=== PATIENT | female | born 1960 | race Asian ===

== ENCOUNTER 2022-01-28 06:35 | Emergency (ER) | payer OTHER ==
--- OUTSIDE RECORDS SUMMARY | 2022-01-28 06:39 | XMS REPORT | Continuity of Care Document ---
:1960 Author Organization [facility] t Address [address] [place] [address] Dr. Arri[address]. [address] [place] [address] Care Team Providers Name Role Phone Koffi Santos Primary Care Physician [phone] MAYNOR Attending Clinician Unavailable Kevin LIMON Attending Clinician Unavailable Maria Ines Chavez MD Attending Clinician Eduardo FARLEY Attending Clinician LUKAS_DARIUSZ_Lotze_P Attending Clinician Unavailable G125, Vaccine - Pfizer Attending Clinician Unavailable Jt Sharma Attending Clinician [phone] Ricarda Hastings MD Attending Clinician Doctor Unassigned, Name Attending Clinician Unavailable [facility] Attending Clinician Pob, Lab Main Attending Clinician Unavailable Kevin LIMON Admitting Clinician Unavailable LUKAS_DARIUSZ_Zachary_P Admitting Clinician Unavailable Payers Payer Name Policy Type Policy Number Effective Date Expiration Date S alan MEDICARE PART A AND [id number] 2014 B 00:00:00 [employer] MEDICARE PPO [id number] 2019 2021 00:00:00 00:00:00 [employer] MEDICARE HMO [id number] 2019 POS 00:00:00 [employer] (MEDICARE [id number] 2019 REPLACEMENT PPO) 00:00:00 Problems Condition Condition Condition Status Onset Resolution Last Treating Co mments Source Name Details Category Date Date Treatment Clinician Date Fatigue Fatigue Disease Active Univers 1-25 ity of 00:00: [place] [facility] Polyuria Polyuria Disease Active Unive rs 7- ity of 00:00: [place] [facility] Salivary Salivary Disease Active Unive rs calculus calculus 7- ity of 00:00: [place] [facility] Prediabete Prediabete Disease Active U nivers s s 7-29 ity of 00:00: [place] [facility] Sacroiliac Sacroiliac Disease Active U nivers joint joint 6-05 ity of dysfunctio dysfunctio 00:[place] TMJ TMJ Disease Active Univers hypermobil hypermobil 4-17 it y of ity ity 00:00: [place] [facility] TMJ TMJ Disease Active Univers crepitus crepitus 4-17 ity of 00:00: [place] [facility] TMJ TMJ Disease Active Univers derangemen derangemen 4-17 it y of t t 00:00: [place] 00 Medical [facility] Lumbosacra Lumbosacra Disease Active U nivers l l 8-28 ity of spondylosi spondylosi 00:[place] without s without 00 Medi ang myelopathy myelopathy Br anch Sinusitis, Sinusitis, Disease Active Overview : Univers chronic chronic 4-26 Formattin ity o f 00:00: g of this 00 note Medical might be Branch different from the original. ICD10 Diagnosis Term Senior Business Intelligence Analyst Utility Hypothyroi Hypothyroi Disease Active U nivers dism dism 1-30 ity of 00:00: [place] 00 Medical Branch Piriformis Piriformis Disease Active U nivers syndrome syndrome ity of [place] [facility] Allergies, Adverse Reactions, Alerts Allergy Allergy Status Severity Reaction(s) Onset Inactive Treating Comm ents Source Name Type Date Date Clinician NO KNOWN Allergy Active Social History Social Habit Start Date Stop Date Quantity Comments Source History SDOH University o f Alcohol Frequency [place] [facility] History SDOH University o f Alcohol Std Drinks [place] [facility] History SDOH University o f Alcohol Binge [place] [facility] Alcohol intake 2021-12-16 2021-12-16 Ex-drinker [facility] [place] [facility] 00:00:00 00:00:00 (finding) Cigarettes smoked 2011-04-23 2011-04-23 Univers ity of current (pack per 00:00:00 00:00:00 [facility] ) - Reported Branch Cigarette 2011-04-23 2011-04-23 University of pack-years 00:00:00 00:00:00 [facility] Tobacco use and 2011-04-23 2011-04-23 Former user Universi ty of exposure 00:00:00 00:00:00 [facility] Alcohol Comment 2011-04-23 2011-04-23 socially, 1x Univers ity of 00:00:00 00:00:00 month [facility] [place] [facility] History of tobacco 2010-11-23 User of Univer sity of use 00:00:00 smokeless [facility] tobacco [place] Sex Ass[birth year] At [birth year] [facility] 00:00:00 00:00:00 Smoking Status Start Date Stop Date Source Tobacco smoking [facility] consumption unknown Never smoked tobacco [facility] Former smoker 2011-04-23 00:00:00 2011-04-23 [place] o f [place] 00:00:00 [facility] Medications Ordered Filled Start Stop Current Ordering Indication Dosage Frequency Signature Comments Components Source Medication Medication Date Date Medication? Clinician (SIG) Name Name NORDITROPIN Yes [id number] INJECT Univers FLEXPRO 5 3-09 0.6MG INTO ity of mg/1.5 mL 00:00: [place] (3.3 mg/mL) 00 DAILY Medical solution Branch NORDITROPIN Yes [id number] INJECT Univers FLEXPRO 5 3-09 0.6MG INTO ity of mg/1.5 mL 00:00: [place] (3.3 mg/mL) 00 DAILY Medical solution Branch NORDITROPIN Yes [id number] INJECT Univers FLEXPRO 5 3-09 0.6MG INTO ity of mg/1.5 mL 00:00: [place] (3.3 mg/mL) 00 DAILY Medical solution Branch pantoprazol 202- Yes [id number] 40mg Take 1 [place] e 11-21 tablet (40 Health (Protonix) 00:00: 05:59 mg total) 40 MG EC 00 :00 by mouth 1 tablet (one) time each day before breakfast. Do not crush, chew, or split. levothyroxi 2021-0 Yes [id number] 112ug Take 1 Univers ne 1-20 tablet by ity of (SYNTHROID) 00:00: mouth [place] 112 mcg 00 every Medical tablet morning. Branch levothyroxi 2021-0 Yes [id number] 112ug Take 1 Univers ne 1-20 tablet by ity of (SYNTHROID) 00:00: mouth [place] 112 mcg 00 every Medical tablet morning. Branch levothyroxi 2021-0 Yes [id number] 112ug Take 1 Univers ne 1-20 tablet by ity of (SYNTHROID) 00:00: mouth [place] 112 mcg 00 every Medical tablet morning. Branch liothyronin 2020-1 Yes [id number] TAKE 2 Univers e 5 mcg 1-08 TABLETS BY ity of tablet 00:00: MOUTH AT [place] 00 9AM, 2 Medical TABLETS AT [place] 12PM, AND 1 TABLET IN THE EVENING liothyronin 2020-1 Yes [id number] TAKE 2 Univers e 5 mcg 1-08 TABLETS BY ity of tablet 00:00: MOUTH AT [place] 00 9AM, 2 Medical TABLETS AT [place] 12PM, AND 1 TABLET IN THE EVENING liothyronin 2020-1 Yes [id number] TAKE 2 Univers e 5 mcg 1-08 TABLETS BY ity of tablet 00:00: MOUTH AT [place] 00 9AM, 2 Medical TABLETS AT [place] 12PM, AND 1 TABLET IN THE EVENING Cholecalcif 2020-0 Yes [id number] Take 1 Univers sammy, 9-10 capsule by ity of Vitamin D3, 00:00: mouth [place] (D3-50 00 weekly. Medical CHOLECALCIF Branch SAMMY) 1,250 mcg (50,000 unit) capsule Cholecalcif 2021-0 Yes [id number] Take 1 Univers sammy, 9-10 capsule by ity of Vitamin D3, 00:00: mouth [place] (D3-50 00 weekly. Medical CHOLECALCIF Branch SAMMY) 1,250 mcg (50,000 unit) capsule Cholecalcif 2021-0 Yes [id number] Take 1 Univers sammy, 9-10 capsule by ity of Vitamin D3, 00:00: mouth [place] (D3-50 00 weekly. Medical CHOLECALCIF Branch SAMMY) 1,250 mcg (50,000 unit) capsule Insulin 2018-10 Yes Use as Univers Hines, 2-11 directed ity of Disposable, 00:00: to inject [place] (NOVOFINE 00 Norditropi Medi ang 32) 32 n daily. Branch gauge x Dx E 23.0 10/29" Ndle Insulin 2018-10 Yes Use as Univers Hines, 2-11 directed ity of Disposable, 00:00: to inject [place] (NOVOFINE 00 Norditropi Medi ang 32) 32 n daily. Branch gauge x Dx E 23.0 10/29" Ndle Insulin 2018-10 Yes Use as Univers Hines, 2-11 directed ity of Disposable, 00:00: to inject [place] (NOVOFINE 00 Norditropi Medi ang 32) 32 n daily. Branch gauge x Dx E 23.0 10/29" Ndle liraglutide Yes [id number] 3mg inject 3 Univers (SAXENDA) 3 7-31 mg under ity of mg/0.5 mL 00:00: the [place] (18 mg/3 00 daily. Medical mL) PnIj Start with Branc h 0.6 mg daily and increase by 0.6 mg every week till you reach 3 mg daily liraglutide Yes [id number] 3mg inject 3 Univers (SAXENDA) 3 7-31 mg under ity of mg/0.5 mL 00:00: the [place] (18 mg/3 00 daily. Medical mL) PnIj Start with Branc h 0.6 mg daily and increase by 0.6 mg every week till you reach 3 mg daily liraglutide Yes [id number] 3mg inject 3 Univers (SAXENDA) 3 7-31 mg under ity of mg/0.5 mL 00:00: the [place] (18 mg/3 00 daily. Medical mL) PnIj Start with Branc h 0.6 mg daily and increase by 0.6 mg every week till you reach 3 mg daily estradiol Yes 1{patch Apply 1 Un jeanette (VIVELLE-DO 7-14 } Patch to ity of T) 0.075 00:00: skin 2 [place] mg/24 hr 00 (two) Medical patch times per Branch week (hot flashes). estradiol Yes 1{patch Apply 1 Un jeanette (VIVELLE-DO 7-14 } Patch to ity of T) 0.075 00:00: skin 2 [place] mg/24 hr 00 (two) Medical patch times per Branch week (hot flashes). estradiol 2016- Yes 1{patch Apply 1 Un jeanette (VIVELLE-DO 7-14 } Patch to ity of T) 0.075 00:00: skin 2 [place] mg/24 hr 00 (two) Medical patch times per Branch week (hot flashes). Olopatadine 2013-10 Yes 2{spray Use 2 Un jeanette (PATANASE) 2-16 } Sprays in ity of 0.6 % [place] 00:00: each [place] 00 nostril Medical daily. Branch Olopatadine 2013-10 Yes 2{spray Use 2 Un jeanette (PATANASE) 2-16 } Sprays in ity of 0.6 % [place] 00:00: each [place] 00 nostril Medical daily. Branch Olopatadine 2013-10 Yes 2{spray Use 2 Un jeanette (PATANASE) 2-16 } Sprays in ity of 0.6 % [place] 00:00: each [place] 00 nostril Medical daily. Branch triamcinolo 2013-10 Yes Apply to U nivers ne 1-19 area(s) 2 ity of (KENALOG) 00:00: (two) [place] 0.025 % 00 times Medical cream daily. Branch triamcinolo 2013-10 Yes Apply to U nivers ne 1-19 area(s) 2 ity of (KENALOG) 00:00: (two) [place] 0.025 % 00 times Medical cream daily. Branch triamcinolo 2013-10 Yes Apply to U nivers ne 1-19 area(s) 2 ity of (KENALOG) 00:00: (two) [place] 0.025 % 00 times Medical cream daily. Branch mometasone 2013-10 Yes 1{spray Use 1 Uni vers (NASONEX) 1-04 } [place] in ity of 50 00:00: each [place] mcg/actuati 00 nostril 2 Med ical on nasal (two) Branch spray times daily. albuterol 2013-10 Yes 2{puff} Inhale 2 U nivers (PROAIR 1-04 Puffs ity of HFA) 90 00:00: every 6 [place] mcg/actuati 00 (six) Medical on inhaler hours as Branc h needed for Wheezing, Shortness of Breath or Chest tightness. mometasone 2013-10 Yes 1{spray Use 1 Uni vers (NASONEX) 1-04 } [place] in ity of 50 00:00: each [place] mcg/actuati 00 nostril 2 Med ical on nasal (two) Branch spray times daily. albuterol 2013-10 Yes 2{puff} Inhale 2 U nivers (PROAIR 1-04 Puffs ity of HFA) 90 00:00: every 6 [place] mcg/actuati 00 (six) Medical on inhaler hours as Branc h needed for Wheezing, Shortness of Breath or Chest tightness. mometasone 2013-10 Yes 1{spray Use 1 Uni vers (NASONEX) 1-04 } [place] in ity of 50 00:00: each [place] mcg/actuati 00 nostril 2 Med ical on nasal (two) Branch spray times daily. albuterol 2013-10 Yes 2{puff} Inhale 2 U nivers (PROAIR 1-04 Puffs ity of HFA) 90 00:00: every 6 [place] mcg/actuati 00 (six) Medical on inhaler hours as Branc h needed for Wheezing, Shortness of Breath or Chest tightness. fluconazole 2013-10 Yes [id number] Take one Univers (DIFLUCAN) 0-29 tab po ity of 150 mg 00:00: today then [place] tablet 00 repeat in Medical 3 days. Branch fluconazole 2013-10 Yes [id number] Take one Univers (DIFLUCAN) 0-29 tab po ity of 150 mg 00:00: today then [place] tablet 00 repeat in Medical 3 days. Branch fluconazole 2013-10 Yes [id number] Take one Univers (DIFLUCAN) 0-29 tab po ity of 150 mg 00:00: today then [place] tablet 00 repeat in Medical 3 days. Branch Immunizations Ordered Filled Immunization Date Status Comments [facility] e Immunization Name Name Influenza, 2021-10-22 Completed [place] [facility] quadrivalent, 00:00:00 injectable, preservative free COVID-19 Pfizer 12 2021-10-22 Completed [place] [facility] & [facility] Vaccination 00:00:00 Influenza, 2021-10-22 Completed [place] [facility] quadrivalent, 00:00:00 injectable, preservative free COVID-19 Pfizer 12 2021-10-22 [place] Vaccination 00:00:00 Influenza Virus 2014-08-23 Completed Universit y of Vaccine Quad IM 3+ 00:00:00 [facility] Influenza Virus 2014-08-23 Completed Universit y of Vaccine Quad IM 3+ 00:00:00 [facility] Influenza Virus 2014-08-23 Completed Universit y of Vaccine Quad IM 3+ 00:00:00 [facility] Vital Signs Vital Name Observation Time Observation Value Comments Source WEIGHT 2021-06-22 20:00:00 58.06 kg HEIGHT 2021-06-21 14:28:00 154.9 cm WEIGHT 2021-06-21 14:28:00 57.5 kg Systolic blood pressure 2021-11-21 17:01:00 136 mm[Hg] [facility] Diastolic blood pressure 2021-11-21 17:01:00 84 mm[Hg] [facility] Heart rate 2021-11-21 17:01:00 87 /min [facility] Body temperature 2021-11-21 17:01:00 37 [facility] ealt Body height 2021-11-21 17:01:00 149.9 cm [facility] Body weight 2021-11-21 17:01:00 [facility] BMI 2021-11-21 17:01:00 25.52 kg/m2 [facility] WEIGHT 2021-06-22 20:00:00 58.06 kg HEIGHT 2021-06-21 14:28:00 154.9 cm WEIGHT 2021-06-21 14:28:00 57.5 kg Procedures This patient has no known procedures. Encounters Start End Encounter Admission Attending Care Care Encounter Source Date/Time Date/Time Type Type Clinicians Facility Department ID 2021-11-21 [id number] [place] 11:49:37 [facility] 2021-10-21 Outpatient [facility] [id number] [place] 22:16:26 Health 2021-10-14 [facility] [id number] [place] 16:35:48 [facility] 2021-08-04 [facility] [id number] [facility] 10:20:24 CHRISTOPHER 2022-01-21 2022-01-21 Telephone [facility] [id number] Univers 00:00:00 00:00:00 Lissy PRIMARY 350.1.13.10 it y of Maria Ines CARE 4.2.7.2.686 [place] [id number] Nd dical 220 Branch 2022-01-17 2022-01-17 Telephone [facility] [id number] Univers 00:00:00 00:00:00 Nate PRIMARY [id number] it y of CARE [id number] [place] [id number] Nd dical 220 Branch 2022-01-15 2022-01-15 Outpatient [facility] PRIV PRIV [id number] [facility] 02:55:00 02:55:00 _Lotze_P [id number] Medic al 2022-01-09 2022-01-09 [facility]phone [facility] [id number] Univers 00:00:00 00:00:00 Lissy PRIMARY 350.1.13.10 it y of Maria Ines CARE 4.2.7.2.686 [place] [id number] Nd dical 220 Branch 2021-12-18 2021-12-18 Outpatient [facility] PRIV PRIV [id number] [facility] 04:21:00 04:21:00 _Lotze_P [id number] Medic al 2021-11-21 2021-11-21 Office KALLI Smith [facility] [id number] [place] 10:00:00 11:49:53 Visit [facility] 350.1.13.58 [place] [address] 2 9.2.7.2.686 [id number] 2021-11-21 2021-11-21 Outpatient [facility] PRIV PRIV [id number] [facility] 06:16:00 06:16:00 _Lotze_P [id number] Medic al 2021-11-04 2021-11-04 Outpatient [facility] PR[facility] PRIV [id number] [facility] 05:32:00 05:32:00 _Lotze_P [id number] Medic al 2021-10-29 2021-10-29 Outpatient [facility] PRIV PRIV [id number] [facility] 04:24:00 04:24:00 _Lotze_P [id number] Medic al 2021-10-23 2021-10-23 Outpatient [facility] PRIV PRIV [id number] [facility] 02:06:00 02:06:00 _Lotze_P [id number] Medic al 2021-10-22 2021-10-22 Immunizati G125, Covid UTP 6414 1.2.840.11 [id number] [place] 13:30:00 13:40:00 on Vaccine - [address] 350.1.13.58 Health Pfizer 9.2.7.2.686 [id number] 3 2021-10-16 2021-10-16 Outpatient [facility] PR[facility] PRIV [id number] 03:48:00 03:48:00 _Lotze_P [id number] Medic al 2021-10-16 2021-10-16 Outpatient Lotze, PRIV PRIV [id number] c-7 00:00:00 00:00:00 Malcolm [id number] Jt [id number] [id number] 2021-10-09 2021-10-09 Outpatient [facility] PRIV PRIV [id number] [facility] 05:30:00 05:30:00 _Lotze_P [id number] Medic al 2021-10-07 2021-10-07 Outpatient [facility] PRIV PRIV [id number] [facility] 04:49:00 04:49:00 _Lotze_P [id number] Medic al 2021-10-07 2021-10-07 Outpatient Lotze, PRIV PRIV [id number] [id number] 00:00:00 00:00:00 Malcolm [id number] Jt [id number] 2021-10-03 2021-10-03 Outpatient [facility] PRIV PRIV [id number] [facility] 03:07:00 03:07:00 _Lotze_P [id number] Medic al 2020-11-16 2020-11-16 [facility] [id number] 15:00:00 23:59:00 Encounter Leonard J [place] 350.1.13.10 [place] 4.2.7.2.686 [place] [id number] 2020-11-16 2020-11-16 Orders Doctor KATHY 1.2.840.114 [id number] 00:00:00 00:00:00 Only Unassigned, JON 350.1.13.10 [place] [facility] 4.2.7.2.686 [id number] 2020-11-07 2020-11-07 Telephone [facility] [id number] 00:00:00 00:00:00 Leonard J PRIMARY 350.1.13.10 CARE 4.2.7.2.686 PAVILLION [id number] 2020-11-02 2020-11-02 Patient [facility] 1.2.840.114 [id number] 00:00:00 00:00:00 Secure Msg [facility] PRIMARY 350.1.13.10 [facility] 4.2.7.2.686 PAVILLION [id number] 220 2020-08-08 2020-08-08 Telemedici [facility] 1.2.840.114 [id number] 09:49:18 16:39:55 ne Visit Leonard J PRIMARY 350.1.13.10 CARE 4.2.7.2.686 PAVILLION [id number] 2020-02-14 2020-02-14 Patient Doctor [facility] 1.2.840.114 [id number] 00:00:00 00:00:00 Secure Msg Unassigned, MULTISPEC 350.1.13.10 [place] IAFLAVIA 4.2.7.2.686 [place] [id number] [place] [facility] 2020-02-11 2020-02-11 Refill Ashley [facility] 1.2.840.114 [id number] 00:00:00 00:00:00 Souad MULTISPEC 350.1.13.10 IAL[place] 4.2.7.2.686 [place] [id number] [facility] [place] [facility] 2020-02-07 2020-02-07 Chief Service Observer Sissy Araceli [facility] 1.2.840.114 [id number] 11:02:28 12:15:54 Visit Lab Main [place] 350.1.13.10 [place] 4.2.7.2.686 [place] [id number] 2020-02-07 2020-02-07 Refill Ashley [facility] 1.2.840.114 [id number] 00:00:00 00:00:00 Souad MULTISPEC 350.1.13.10 [place] 4.2.7.2.686 [place] [id number] [place] [facility] 2019-07-29 2019-07-29 Outpatient MHIE MHIE [id number] [facility] 11:30:00 11:30:00 07 pineda Romero 2019-06-06 2019-06-06 Outpatient MHIE MHIE [id number] [facility] 16:45:00 16:45:00 08 pineda Romero 2019-05-04 2019-05-04 Outpatient MHIE MHIE [id number] [facility] 11:15:00 11:15:00 06 pineda Romero 2019-02-03 2019-02-03 Outpatient MHIE MHIE [id number] [facility] 14:00:00 14:00:00 05 pineda Romero 2018-09-22 2018-09-22 Outpatient MHIE MHIE [id number] [facility] 15:00:00 15:00:00 04 pineda Romero 2018-08-04 2018-08-04 Outpatient MHIE MHIE [id number] [facility] 10:30:00 10:30:00 03 pineda Romero 2018-07-29 2018-07-29 Outpatient MHIE MHIE [id number] [facility] 14:45:00 14:45:00 02 pineda Romero 2018-06-17 2018-06-17 Outpatient MHIE MHIE [id number] [facility] 15:15:00 15:15:00 01 pineda Romero 2018-05-04 2018-05-04 Outpatient MHIE MHIE [id number] [facility] 13:30:00 13:30:00 00 pineda Romero Results Test Description Test Time Test Comments Results Result Sourc e Comments TISSUE EXAM 2021-06-26 Surgical Pathology Report 11:39:00 Case: [id number] Authorizing Provider: Khai Blum MD Collected: 06/23/2021 08:28 AM Ordering Location: [address] Med/Surg Received: 06/24/2021 10:12 AM Pathologist: Ce Iniguez MD Specimens: A) - Small Bowel, NOS B) - Biopsy, Gastric, remnant gastric biopsy This addendum is to report Warthin Starry results. WARTHIN STARRY: NEGATIVE FOR H. PYLORI ORGANISMS Addendum electronically signed by Ce Iniguez MD on 06/26/2021 at 11:39 AMA. SMALL BOWEL, BIOPSY: - SMALL INTESTINAL MUCOSA WITH NO SIGNIFICANT PATHOLOGIC ALTERATIONB. GASTRIC REMNANT, BIOPSY: - OXYNTIC TYPE MUCOSA WITH MILD CHRONIC INACTIVE GASTRITIS - NO INTESTINAL METAPLASIA, DYSPLASIA OR MALIGNANCY SEEN - WARTHIN STARRY STAIN FOR H. PYLORI IS PENDING, ADDENDUM REPORT TO FOLLOW Signing Pathologist Direct Phone Line: [phone] y signed by Ce Iniguez MD on 06/25/2021 at 11:15 AMMG/[id number] A. Small bowel NOS. B. Biopsy gastric remnant Specimen A received in fixative labeled with the patient's name and medical record number and designated as "small bowel NOS", consists of two white-newby tissue fragments ranging in size from 0.2 to 0.5 cm in greatest dimension. Both tissue fragments are submitted into A1.Specimen B received in fixative labeled with the patient's name and medical record number and designated as "biopsy gastric", consists of two pink-newby tissue fragments each measuring 0.3 cm in greatest dimension. Both tissue fragments are submitted into B1. MG/Nate-B. Performed The interpretation of this case included the use of immunohistochemistry or special stains.B. Warthin StarryControl Slides Examined: In-house known positive controls were evaluated along with the test tissue. These control slides run alongside of the patients sample show appropriate staining. Internal positive and negative controls when available are evaluated Immunohistochemistry technical testing was performed at [facility], Pathology Laboratory where it was developed and its performance characteristics were determined. It has not been cleared or approved by the U.S. Food and Drug Administration. The FDA has determined that such clearance or approval is not necessary. The test is used for clinical purposes. It should not be regarded as investigational or for research. This laboratory is certified under the Clinical Laboratory Improvement Amendments of 1988 (CLIA-88) as qualified to perform high complexity clinical laboratory testing.[facility], Department of Pathology, [address] [place] [id number], Lzyroj [facility], Department of Pathology, [address] [place] [id number], [facility], Department of Pathology, [address] [place] [address] [id number], HEMORRHAGE 2021-06-25 Unlisted IMAGING, RBC 09:55:00 Reason for Exam - Click [facility] - Yes and Enter [facility] CENTERName: Reason DELBERT LAW Below->No : 1960 Sex: F FINAL REPORT PROCEDURE: HEMORRHAGE STUDY with RBCs CPT CODE: 11163 INDICATION: Gastrointestinal Bleeding PROTOCOL: 28.0 mCi of Tc-99m was injected intravenously as labeled autologous red blood cells. Flow images of the abdomen were obtained, followed by serial images for approximately 60 minutes. Additional images were obtained 18 hours after tracer injection. FINDINGS: There is physiological tracer distribution in the blood pool. IMPRESSION: Negative study. No evidence of active hemorrhage is seen. Signed: Homer Grubbs MDReport Verified Date/Time: 06/25/2021 09:55:14 Reading Location: [address] [place] [address] Reading Room C METABOLIC PANEL 2021-06-25 06:19:00 Test Item Value Reference Range Interpretation Comme nts SODIUM (BEAKER) (test code 139 meq/L 135-148 = 381) POTASSIUM (BEAKER) (test 3.4 meq/L 3.6-5.5 L code = 379) CHLORIDE (BEAKER) (test 107 meq/L 98-106 H code = 382) CO2 (BEAKER) (test code = 23 meq/L 20-29 355) BLOOD UREA NITROGEN 11 mg/dL 10-26 (BEAKER) (test code = 354) CREATININE (BEAKER) (test 0.63 mg/dL 0.50-1.20 code = 358) GLUCOSE RANDOM (BEAKER) 111 mg/dL 70-110 H (test code = 652) CALCIUM (BEAKER) (test code 8.8 mg/dL 8.5-10.5 = 697) EGFR (BEAKER) (test code = 96 mL/min/1.73 sq m ESTIMATED GFR IS NOT 1092) ACCURATE CRE ATININE CLEARANCE IN MI EDICTING GLOMERULAR FILT RATION RATE. ESTIMATED GFR IS NOT APPLICABLE FOR DIALYSIS PATIENTS. Casting House Laborer ID - LITOOperator ID - LITOOperator ID - LITOOperator ID - LITOOperator ID - LITOOperator ID - LITOOperator ID - LITOOperator ID - LITOOperator ID - LITOOperator ID - [id number] 06:08:00 Test Item Value Reference Range Interpretation Comments MAGNESIUM (BEAKER) (test code = 1.9 mg/dL 1.5-3.0 627) Casting House Laborer ID - LITOOperator ID - LITOOperator ID - LITOOperator ID - LITOCBC W/PLT COUNT & AUTO [id number] 05:43:00 Test Item Value Reference Range Interpretation Comments WHITE BLOOD CELL COUNT (BEAKER) 9.1 K/ L 4.0-10.0 (test code = 775) RED BLOOD CELL COUNT (BEAKER) 2.97 M/ L 4.00-5.00 L (test code = 761) HEMOGLOBIN (BEAKER) (test code = 8.3 GM/DL 12.0-15.5 L 410) HEMATOCRIT (BEAKER) (test code = 26.2 % 36.0-46.0 L 411) MEAN CORPUSCULAR VOLUME (BEAKER) 88.2 fL 82.0-99.0 (test code = 753) MEAN CORPUSCULAR HEMOGLOBIN 27.9 pg 27.0-33.0 (BEAKER) (test code = 751) MEAN CORPUSCULAR HEMOGLOBIN CONC 31.7 GM/DL 32.0-36.0 L (BEAKER) (test code = 752) RED CELL DISTRIBUTION WIDTH 15.8 % 12.0-15.0 H (BEAKER) (test code = 412) PLATELET COUNT (BEAKER) (test 455 K/CU MM 150-430 H code = 756) MEAN PLATELET VOLUME (BEAKER) 9.3 fL 6.0-11.5 (test code = 754) NUCLEATED RED BLOOD CELLS 0 /100 WBC 0-0 (BEAKER) (test code = 413) NEUTROPHILS RELATIVE PERCENT 65 % (BEAKER) (test code = 429) LYMPHOCYTES RELATIVE PERCENT 28 % (BEAKER) (test code = 430) MONOCYTES RELATIVE PERCENT 4 % (BEAKER) (test code = 431) EOSINOPHILS RELATIVE PERCENT 2 % (BEAKER) (test code = 432) BASOPHILS RELATIVE PERCENT 0 % (BEAKER) (test code = 437) NEUTROPHILS ABSOLUTE COUNT 5.84 K/ L 1.80-8.00 (BEAKER) (test code = 670) LYMPHOCYTES ABSOLUTE COUNT 2.57 K/ L 1.48-4.50 (BEAKER) (test code = 414) MONOCYTES ABSOLUTE COUNT (BEAKER) 0.40 K/ L 0.00-1.30 (test code = 415) EOSINOPHILS ABSOLUTE COUNT 0.20 K/ L 0.00-0.50 (BEAKER) (test code = 416) BASOPHILS ABSOLUTE COUNT (BEAKER) 0.01 K/ L 0.00-0.20 (test code = 417) IMMATURE GRANULOCYTES-RELATIVE 0 % 0-0 PERCENT (BEAKER) (test code = 2801) [id number] 05:20:00 Test Item Value Reference Range Interpretation Comments MAGNESIUM (BEAKER) (test code = 1.9 mg/dL 1.5-3.0 627) [employer] ID - [id number] ID - [id number] ID - [id number] ID - [id number] BASIC METABOLIC [id number] 05:19:00 Test Item Value Reference Range Interpretation Comments SODIUM (BEAKER) 141 meq/L 135-148 (test code = 381) POTASSIUM (BEAKER) 3.6 meq/L 3.6-5.5 (test code = 379) CHLORIDE (BEAKER) 110 meq/L 98-106 H (test code = 382) CO2 (BEAKER) (test 22 meq/L 20-29 code = 355) BLOOD UREA NITROGEN 9 mg/dL 10-26 L (BEAKER) (test code = 354) CREATININE (BEAKER) 0.68 mg/dL 0.50-1.20 (test code = 358) GLUCOSE RANDOM 137 mg/dL 70-110 H (BEAKER) (test code = 652) CALCIUM (BEAKER) 8.7 mg/dL 8.5-10.5 (test code = 697) EGFR (BEAKER) (test 88 mL/min/1.73 ESTIMA CIARRA GFR IS code = 1092) sq m NOT ACCURATE CREATININE CLEARANCE IN PREDICTING GLOMERULAR FILTRATION RATE . ESTIMATED GFR I S NOT APPLICABLE FOR DIALYSIS PATIEN TS. [employer] Laborer ID - [id number] ID - [id number] ID - [id number] ID - [id number] ID - [id number] ID - [id number] ID - [id number] ID - [id number] ID - [id number] W/PLT COUNT & AUTO [id number] 04:59:00 Test Item Value Reference Range Interpretation Comments WHITE BLOOD CELL COUNT (BEAKER) 9.2 K/ L 4.0-10.0 (test code = 775) RED BLOOD CELL COUNT (BEAKER) 2.69 M/ L 4.00-5.00 L (test code = 761) HEMOGLOBIN (BEAKER) (test code = 7.8 GM/DL 12.0-15.5 L 410) HEMATOCRIT (BEAKER) (test code = 23.7 % 36.0-46.0 L 411) MEAN CORPUSCULAR VOLUME (BEAKER) 88.1 fL 82.0-99.0 (test code = 753) MEAN CORPUSCULAR HEMOGLOBIN 29.0 pg 27.0-33.0 (BEAKER) (test code = 751) MEAN CORPUSCULAR HEMOGLOBIN CONC 32.9 GM/DL 32.0-36.0 (BEAKER) (test code = 752) RED CELL DISTRIBUTION WIDTH 15.9 % 12.0-15.0 H (BEAKER) (test code = 412) PLATELET COUNT (BEAKER) (test 441 K/CU MM 150-430 H code = 756) MEAN PLATELET VOLUME (BEAKER) 9.8 fL 6.0-11.5 (test code = 754) NUCLEATED RED BLOOD CELLS 0 /100 WBC 0-0 (BEAKER) (test code = 413) NEUTROPHILS RELATIVE PERCENT 61 % (BEAKER) (test code = 429) LYMPHOCYTES RELATIVE PERCENT 33 % (BEAKER) (test code = 430) MONOCYTES RELATIVE PERCENT 4 % (BEAKER) (test code = 431) EOSINOPHILS RELATIVE PERCENT 2 % (BEAKER) (test code = 432) BASOPHILS RELATIVE PERCENT 0 % (BEAKER) (test code = 437) NEUTROPHILS ABSOLUTE COUNT 5.60 K/ L 1.80-8.00 (BEAKER) (test code = 670) LYMPHOCYTES ABSOLUTE COUNT 3.04 K/ L 1.48-4.50 (BEAKER) (test code = 414) MONOCYTES ABSOLUTE COUNT (BEAKER) 0.38 K/ L 0.00-1.30 (test code = 415) EOSINOPHILS ABSOLUTE COUNT 0.14 K/ L 0.00-0.50 (BEAKER) (test code = 416) BASOPHILS ABSOLUTE COUNT (BEAKER) 0.01 K/ L 0.00-0.20 (test code = 417) IMMATURE GRANULOCYTES-RELATIVE 0 % 0-0 PERCENT (BEAKER) (test code = 2801) VITAMIN B12 AND [id number] 07:35:00 Test Item Value Reference Range Interpretation Comments VITAMIN B12 1390 pg/mL 211-911 H (BEAKER) (test code = 774) FOLATE (BEAKER) 13.60 ng/mL See_Comment [Automated message] (test code = 362) The system which generated this result transmitted ref erence range: >=5.4. T he reference range was not used to interpr et this result as normal/abnormal . [employer] Laborer ID - [id number] ID - [id number], TIBC, % SAT. (WITHOUT FERRITIN)2021-06-23 07:12:00 Test Item Value Reference Range Interpretation Comments IRON (BEAKER) (test code = 547) 84.0 ug/dL 45.0-170.0 TOTAL IRON BINDING CAPACITY 341 ug/dL 250-550 (BEAKER) (test code = 769) IRON % SATURATION (2) (BEAKER) 25 % 20-55 (test code = 2590) [employer] Laborer ID - [id number] ID - [id number] METABOLIC [id number] 07:12:00 Test Item Value Reference Range Interpretation Comments SODIUM (BEAKER) 143 meq/L 135-148 (test code = 381) POTASSIUM (BEAKER) 3.8 meq/L 3.6-5.5 (test code = 379) CHLORIDE (BEAKER) 115 meq/L 98-106 H (test code = 382) CO2 (BEAKER) (test 20 meq/L 20-29 code = 355) BLOOD UREA NITROGEN 6 mg/dL 10-26 L (BEAKER) (test code = 354) CREATININE (BEAKER) 0.66 mg/dL 0.50-1.20 (test code = 358) GLUCOSE RANDOM 123 mg/dL 70-110 H (BEAKER) (test code = 652) CALCIUM (BEAKER) 9.4 mg/dL 8.5-10.5 (test code = 697) EGFR (BEAKER) (test 91 mL/min/1.73 ESTIMA CIARRA GFR IS code = 1092) sq m NOT ACCURATE CREATININE CLEARANCE IN PREDICTING GLOMERULAR FILTRATION RATE . ESTIMATED GFR I S NOT APPLICABLE FOR DIALYSIS PATIEN TS. [employer] Laborer ID - [id number] ID - [id number] ID - [id number] ID - [id number] ID - [id number] ID - [id number] ID - [id number] ID - [id number] ID - [id number] ID - [id number] 06:45:00 Test Item Value Reference Range Interpretation Comments MAGNESIUM (BEAKER) (test code = 2.0 mg/dL 1.5-3.0 627) [employer] Laborer ID - [id number] ID - [id number] ID - [id number] ID - [id number] C-REACTIVE [id number] 06:42:00 Test Item Value Reference Range Interpretation Comments C-REACTIVE PROTEIN (BEAKER) (test 0.02 mg/dL 0.00-0.50 code = 676) [employer] Laborer ID - [id number] W/PLT COUNT & AUTO [id number] 06:29:00 Test Item Value Reference Range Interpretation Comments WHITE BLOOD CELL COUNT (BEAKER) 11.5 K/ L 4.0-10.0 H (test code = 775) RED BLOOD CELL COUNT (BEAKER) 2.92 M/ L 4.00-5.00 L (test code = 761) HEMOGLOBIN (BEAKER) (test code = 8.3 GM/DL 12.0-15.5 L 410) HEMATOCRIT (BEAKER) (test code = 25.7 % 36.0-46.0 L 411) MEAN CORPUSCULAR VOLUME (BEAKER) 88.0 fL 82.0-99.0 (test code = 753) MEAN CORPUSCULAR HEMOGLOBIN 28.4 pg 27.0-33.0 (BEAKER) (test code = 751) MEAN CORPUSCULAR HEMOGLOBIN CONC 32.3 GM/DL 32.0-36.0 (BEAKER) (test code = 752) RED CELL DISTRIBUTION WIDTH 15.3 % 12.0-15.0 H (BEAKER) (test code = 412) PLATELET COUNT (BEAKER) (test 483 K/CU MM 150-430 H code = 756) MEAN PLATELET VOLUME (BEAKER) 10.0 fL 6.0-11.5 (test code = 754) NUCLEATED RED BLOOD CELLS 0 /100 WBC 0-0 (BEAKER) (test code = 413) NEUTROPHILS RELATIVE PERCENT 77 % (BEAKER) (test code = 429) LYMPHOCYTES RELATIVE PERCENT 17 % (BEAKER) (test code = 430) MONOCYTES RELATIVE PERCENT 6 % (BEAKER) (test code = 431) EOSINOPHILS RELATIVE PERCENT 0 % (BEAKER) (test code = 432) BASOPHILS RELATIVE PERCENT 0 % (BEAKER) (test code = 437) NEUTROPHILS ABSOLUTE COUNT 8.80 K/ L 1.80-8.00 H (BEAKER) (test code = 670) LYMPHOCYTES ABSOLUTE COUNT 1.92 K/ L 1.48-4.50 (BEAKER) (test code = 414) MONOCYTES ABSOLUTE COUNT (BEAKER) 0.70 K/ L 0.00-1.30 (test code = 415) EOSINOPHILS ABSOLUTE COUNT 0.00 K/ L 0.00-0.50 (BEAKER) (test code = 416) BASOPHILS ABSOLUTE COUNT (BEAKER) 0.02 K/ L 0.00-0.20 (test code = 417) IMMATURE GRANULOCYTES-RELATIVE 0 % 0-0 PERCENT (BEAKER) (test code = 2801) HEMOGLOBIN AND [id number] 20:22:00 Test Item Value Reference Range Interpretation Comments HEMOGLOBIN (BEAKER) (test code = 8.6 GM/DL 12.0-15.5 L 410) HEMATOCRIT (BEAKER) (test code = 26.6 % 36.0-46.0 L 411) URINALYSIS W/ REFLEX URINE [id number] 16:52:00 Test Item Value Reference Range Interpretation Comments COLOR (BEAKER) (test code = Yellow 470) CLARITY (BEAKER) (test code = Clear 469) SPECIFIC GRAVITY UA (BEAKER) 1.010 1.001-1.035 (test code = 468) PH UA (BEAKER) (test code = 7.0 5.0-8.0 467) PROTEIN UA (BEAKER) (test code Negative Negative = 464) GLUCOSE UA (BEAKER) (test code Negative Negative = 365) KETONES UA (BEAKER) (test code Negative Negative = 371) BILIRUBIN UA (BEAKER) (test Negative Negative code = 462) BLOOD UA (BEAKER) (test code = Negative Negative 461) NITRITE UA (BEAKER) (test code Negative Negative = 465) LEUKOCYTE ESTERASE UA (BEAKER) Negative Negative (test code = 466) UROBILINOGEN UA (BEAKER) (test 0.2 mg/dL 0.2-1.0 code = 463) BACTERIA (BEAKER) (test code = None Seen 517) RBC UA-MANUAL (BEAKER) (test None Seen /HPF code = 1659) WBC UA-MANUAL (BEAKER) (test None Seen /HPF code = 1661) SQUAMOUS EPITHELIAL MANUAL <5 /HPF (BEAKER) (test code = 1663) SOURCE(BEAKER) (test code = 2795) MR, BRAIN, WITHOUT [id number] 14:05:00Outside CT head unremarkable.Unlisted Reason for Exam - Click Yes and Enter Reason Below->No [facility] : 1960 Sex: FFINAL REPORT MRI Brain without contrast Clinical History: Headache, chronic, with new features Technique: MRI of the brain utilizing axial T2, FLAIR, GRE, DWI; sagittal and coronal T1-weighted images. Comparisons: None Findings: There is no evidence of acute infarct or hemorrhage. There are a few scattered nonspecific foci of FLAIR signal abnormality in the subcortical and periventricular white matter. There are multiseptated cystic appearing lesions in the bilateral lateral ventricles, moderately distending the atria. The ventricles are otherwise normal in size. Thereis no significant reactive edema in the periventricular white matter. There is mild generalized sulcal prominence without midline shift. There are no extra-axial fluid collections. The craniocervical junction is preserved. The major intracranial flow-voids appear patent. 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 If clinically warranted, gadolinium-enhanced imaging could be performed for further evaluation. Otherwise, age concordant appearing noncontrast MRI brain. Signed: Shawn Fuentes MDReport Verified Date/Time: 06/22/2021 14:05:16 Reading Location: [address] Neuro Reading Room REHENSIVE METABOLIC [id number] 09:28:00 Test Item Value Reference Range Interpretation Comments TOTAL PROTEIN 4.9 gm/dL 6.0-8.5 L (BEAKER) (test code = 770) ALBUMIN (BEAKER) 2.8 g/dL 3.5-5.0 L (test code = 1145) ALKALINE PHOSPHATASE 48 U/L 30-115 (BEAKER) (test code = 346) BILIRUBIN TOTAL 0.4 mg/dL 0.1-1.2 (BEAKER) (test code = 377) SODIUM (BEAKER) (test 137 meq/L 135-148 code = 381) POTASSIUM (BEAKER) 3.9 meq/L 3.6-5.5 (test code = 379) CHLORIDE (BEAKER) 113 meq/L 98-106 H (test code = 382) CO2 (BEAKER) (test 19 meq/L 20-29 L code = 355) BLOOD UREA NITROGEN 5 mg/dL 10-26 L (BEAKER) (test code = 354) CREATININE (BEAKER) 0.62 mg/dL 0.50-1.20 (test code = 358) GLUCOSE RANDOM 87 mg/dL 70-110 (BEAKER) (test code = 652) CALCIUM (BEAKER) 8.4 mg/dL 8.5-10.5 L (test code = 697) AST (SGOT) (BEAKER) 21 U/L 5-40 (test code = 353) ALT (SGPT) (BEAKER) 19 U/L 5-50 (test code = 347) EGFR (BEAKER) (test 98 mL/min/1.73 ESTIMA CIARRA GFR IS code = 1092) sq m NOT ACCURATE CREATININE CLEARANCE IN PREDICTING GLOMERULAR FILTRATION RATE . ESTIMATED GFR I S NOT APPLICABLE FOR DIALYSIS PATIEN TS. [employer] Laborer ID - [id number] ID - [id number] ID - [id number] ID - [id number] ID - [id number] ID - [id number] ID - [id number] ID - [id number] ID - [id number] ID - [id number] ID - [id number] ID - [id number] ID - [id number] ID - [id number] ID - [id number] ID - [id number] ID - [id number] ID - [id number] ID - [id number] HEMOGLOBIN AND [id number] 09:10:00 Test Item Value Reference Range Interpretation Comments HEMOGLOBIN (BEAKER) (test code = 7.5 GM/DL 12.0-15.5 L 410) HEMATOCRIT (BEAKER) (test code = 23.1 % 36.0-46.0 L 411) CBC W/PLT COUNT & AUTO [id number] 05:59:00 Test Item Value Reference Range Interpretation Comments WHITE BLOOD CELL COUNT (BEAKER) 5.0 K/ L 4.0-10.0 (test code = 775) RED BLOOD CELL COUNT (BEAKER) 2.58 M/ L 4.00-5.00 L (test code = 761) HEMOGLOBIN (BEAKER) (test code = 7.3 GM/DL 12.0-15.5 L 410) HEMATOCRIT (BEAKER) (test code = 22.7 % 36.0-46.0 L 411) MEAN CORPUSCULAR VOLUME (BEAKER) 88.0 fL 82.0-99.0 (test code = 753) MEAN CORPUSCULAR HEMOGLOBIN 28.3 pg 27.0-33.0 (BEAKER) (test code = 751) MEAN CORPUSCULAR HEMOGLOBIN CONC 32.2 GM/DL 32.0-36.0 (BEAKER) (test code = 752) RED CELL DISTRIBUTION WIDTH 15.0 % 12.0-15.0 (BEAKER) (test code = 412) PLATELET COUNT (BEAKER) (test 421 K/CU MM 150-430 code = 756) MEAN PLATELET VOLUME (BEAKER) 9.9 fL 6.0-11.5 (test code = 754) NUCLEATED RED BLOOD CELLS 0 /100 WBC 0-0 (BEAKER) (test code = 413) NEUTROPHILS RELATIVE PERCENT 43 % (BEAKER) (test code = 429) LYMPHOCYTES RELATIVE PERCENT 44 % (BEAKER) (test code = 430) MONOCYTES RELATIVE PERCENT 9 % (BEAKER) (test code = 431) EOSINOPHILS RELATIVE PERCENT 3 % (BEAKER) (test code = 432) BASOPHILS RELATIVE PERCENT 0 % (BEAKER) (test code = 437) NEUTROPHILS ABSOLUTE COUNT 2.15 K/ L 1.80-8.00 (BEAKER) (test code = 670) LYMPHOCYTES ABSOLUTE COUNT 2.17 K/ L 1.48-4.50 (BEAKER) (test code = 414) MONOCYTES ABSOLUTE COUNT (BEAKER) 0.46 K/ L 0.00-1.30 (test code = 415) EOSINOPHILS ABSOLUTE COUNT 0.17 K/ L 0.00-0.50 (BEAKER) (test code = 416) BASOPHILS ABSOLUTE COUNT (BEAKER) 0.02 K/ L 0.00-0.20 (test code = 417) IMMATURE GRANULOCYTES-RELATIVE 0 % 0-0 PERCENT (BEAKER) (test code = 2801) SARS-COV2/RT-PCR ([facility])2021-06-21 18:53:00 Test Item Value Reference Range Interpretation Comments SARS-COV2/RT-PCR Negative Negative The SARS-Co V-2 target (test code = nucleic acids a re not [id number]) detected in thi s specimen. Negative result s do not preclude SARS-C oV-2 infection and s hould not be used as the david e basis for patient managem ent decisions. Nega tive results must be combine d with clinical observ ations, patient history , and epidemiological information. A false negativ e result may occur if a spec imen is improperly roseanne ected, transported or handled. This SARS CoV-2 test is a rapid, real-sumanth e RT-PCR test intended for th e qualitative detection of nu cleic acid from SARS-CoV-2 in a nasopharyngeal swab specimen collected from individuals suspected of CO VID-19 by their healthcar e provider. This test has been authorized by FDA under an EUA for use by authorized laboratories. This test is only authorized for the duration of the declaration that circumstances exist justifying the authorization of emergency use of in vitro diagnostic tests for detection and/or diagnosis of COVID-19 under Section 564(b)(1) of the Federal Food, Drug and Cosmetic Act, 21 U.S.C. 360bbb- 3(b)(1), unless the authorization is terminated or revoked sooner. Fact Sheet for Healthcare Providers: https://www.[employer]/Documents/Xpert%20Xpress%20SARS%20CoV-2/Fact%20Sheets/565-3120%20SARS-COV -2%20HEALTHCARE%20PROVIDERS%20FACT%20SHEET.pdf Fact Sheet for Healthcare Patients: https://www.[employer]/Documents/Xpert %20Xpress%20SARS%20CoV-2/Fact%20Sheets/740-4942%68GVCS-WXN-4%20PATIENT%20FACT%20 SHEET.pdfCBC W/PLT COUNT & AUTO [id number] 16:35:00 Test Item Value Reference Range Interpretation Comments WHITE BLOOD CELL COUNT (BEAKER) 4.4 K/ L 4.0-10.0 (test code = 775) RED BLOOD CELL COUNT (BEAKER) 2.33 M/ L 4.00-5.00 L (test code = 761) HEMOGLOBIN (BEAKER) (test code = 6.6 GM/DL 12.0-15.5 L 410) HEMATOCRIT (BEAKER) (test code = 21.3 % 36.0-46.0 L 411) MEAN CORPUSCULAR VOLUME (BEAKER) 91.4 fL 82.0-99.0 (test code = 753) MEAN CORPUSCULAR HEMOGLOBIN 28.3 pg 27.0-33.0 (BEAKER) (test code = 751) MEAN CORPUSCULAR HEMOGLOBIN CONC 31.0 GM/DL 32.0-36.0 L (BEAKER) (test code = 752) RED CELL DISTRIBUTION WIDTH 15.2 % 12.0-15.0 H (BEAKER) (test code = 412) PLATELET COUNT (BEAKER) (test 462 K/CU MM 150-430 H code = 756) MEAN PLATELET VOLUME (BEAKER) 9.3 fL 6.0-11.5 (test code = 754) NUCLEATED RED BLOOD CELLS 0 /100 WBC 0-0 (BEAKER) (test code = 413) NEUTROPHILS RELATIVE PERCENT 38 % (BEAKER) (test code = 429) LYMPHOCYTES RELATIVE PERCENT 50 % (BEAKER) (test code = 430) MONOCYTES RELATIVE PERCENT 9 % (BEAKER) (test code = 431) EOSINOPHILS RELATIVE PERCENT 3 % (BEAKER) (test code = 432) BASOPHILS RELATIVE PERCENT 0 % (BEAKER) (test code = 437) NEUTROPHILS ABSOLUTE COUNT 1.67 K/ L 1.80-8.00 L (BEAKER) (test code = 670) LYMPHOCYTES ABSOLUTE COUNT 2.20 K/ L 1.48-4.50 (BEAKER) (test code = 414) MONOCYTES ABSOLUTE COUNT (BEAKER) 0.39 K/ L 0.00-1.30 (test code = 415) EOSINOPHILS ABSOLUTE COUNT 0.13 K/ L 0.00-0.50 (BEAKER) (test code = 416) BASOPHILS ABSOLUTE COUNT (BEAKER) 0.01 K/ L 0.00-0.20 (test code = 417) IMMATURE GRANULOCYTES-RELATIVE 0 % 0-0 PERCENT (BEAKER) (test code = 2801) TROPONIN [id number] 16:09:00 Test Item Value Reference Range Interpretation Comments TROPONIN I (BEAKER) (test code = 397) < ng/mL 0.00-0.15 Troponin I (TnI) levels must be interpreted in the context of the presenting symptoms and the clinical findings. Elevated TnI levels indicate myocardial damage, but are not specific for ischemic heart disease. Elevated TnI levels are seen in patients with other cardiac conditions (including myocarditis and congestive heart failure), and slight TnI elevations occur in patients with other conditions, including sepsis, renal failure, acidosis, acute neurological disease, and persistent tachyarrhythmia.[employer] ID - [id number] TIME/[id number] 16:03:00 Test Item Value Reference Range Interpretation Comments PROTIME (BEAKER) 11.1 seconds 9.3-12.0 Final Infor mation (test code = 759) (Auto Outp ut) INR (BEAKER) (test 1.00 See_Comment Final Inf ormation code = 370) (Auto Output) [Automated mess age] The system pinion-pins generated this result transmitted ref erence range: <=5.90. The reference range was not used to int erpret this result as normal/abnormal . RECOMMENDED COUMADIN/WARFARIN INR THERAPY RANGESSTANDARD DOSE: 2.0 - 3.0 Includes: PROPHYLAXIS forvenous thrombosis, systemic embolization; TREATMENT for venous thrombosis and/or pulmonary embolus.HIGH RISK: Target INR is 2.5-3.5 for patients with mechanical heart valves.[id number] 16:03:00 Test Item Value Reference Range Interpretation Comments PARTIAL THROMBOPLASTIN 26.8 seconds 23.0-35.0 Final Information TIME (BEAKER) (test (Auto Ou tput) code = 760)
--- NOTE | 2022-01-28 08:21 | RAD REPORT ---
EXAM DESCRIPTION: RAD - Ankle Right 3 View - 01/28/2022 8:11 am CLINICAL HISTORY: Right ankle pain FINDINGS: Old fracture distal diaphysis right tibia. No acute fracture or dislocation seen. Moderate osteoarthritis tibiotalar joint
--- NOTE | 2022-01-28 08:45 | RAD REPORT ---
EXAM DESCRIPTION: [place] Single View01/28/2022 8:31 am CLINICAL HISTORY: Syncope COMPARISON: none FINDINGS: The lungs appear clear of acute infiltrate. The heart is normal size. Lezama rods tra verse the lower thoracic/lumbar spine IMPRESSION: No acute abnormalities displayed
--- NOTE | 2022-01-28 08:45 | RAD REPORT ---
EXAM DESCRIPTION: CT - Head Brain Wo Cont - 01/28/2022 8:26 am CLINICAL HISTORY: Syncope COMPARISON: None TECHNIQUE: Computed axial tomography of the head was obtained. IV contrast was not requested. All CT scans are performed using dose optimization technique as appropriate and may include automated exposure control or mA/KV adjustment according to patient size. FINDINGS: An intracranial bleed is not seen . The ventricles are normal in caliber. No extra-axial fluid collection is noted. 1 centimeter low-density area medial left cerebellum Fluid within the left maxillary sinus probably acute sinusitis IMPRESSION: 1 centimeter low-density area medial left cerebellum. It is uncertain whether this repre sents beam hardening artifact or pathology such as an infarct. MRI Brain recommended
[2022-01-28 09:00] LABS: Absolute Lymphocytes (CBC) 1.7 K/uL (0.7-4.9); Hematocrit 39.3 % (36.0-45.0); Lymphocytes % 26.3 % (15.3-44.8); MPV 7.9 fL (7.6-11.3); RBC Red Blood Cell Count 4.55 M/uL (3.86-4.86)
[2022-01-28 09:17] LABS: Potassium 3.3 mmol/L (3.5-5.1); Troponin High Sensitivity 6.2 pg/mL (<58.9)
[2022-01-28] MEDS ORDERED: HYDROCODONE/APAP 5/325 MG TAB ONE (09:18)
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
[2022-01-28 14:26] VITALS: TEMP 98
[2022-01-28 14:30] VITALS: BP 113/81; O2SAT 100
--- NOTE | 2022-01-29 07:13 | EKG ---
Test Date: 2022-01-28 Test Time: 09:18:58 [place] Tanner: LAMBERTO MEASUREMENT RESULTS: Intervals: Rate: 63 [place]: 160 QRSD: 98 QT: 428 QTc: 437 [place]: P: 83 [place]: 160 QRS: 62 T: 57 INTERPRETIVE STATEMENTS: Sinus rhythm with premature supraventricular complexes Otherwise normal ECG No previous ECG available for comparison Electronically Signed On 01-29-22 07:09:46 CDT by Abdi Hoyt
== END 2022-01-28 10:57 | disposition home or self-care (01) ==
LOC: ER 06:35
DX: S90.01XA Contusion of right ankle, initial encounter (principal); V09.9XXA Pedestrian injured in unspecified transport accident, initial encounter; I48.0 Paroxysmal atrial fibrillation
CPT/HCPCS: 36415; 70450; 71045; 80048; 84484; 85025; 93005; 99284

== ENCOUNTER 2022-03-17 03:53 | Emergency (ER) | payer OTHER ==
--- OUTSIDE RECORDS SUMMARY | 2022-03-17 03:56 | XMS REPORT | Continuity of Care Document ---
:1960 Author Organization [facility] t Address [address] [place] [address] Care Team Providers Name Role Phone Koffi Santos Primary Care Physician [phone] MAYNOR Attending Clinician Unavailable Kevin LIMON Attending Clinician Unavailable Ricarda PRABHAKAR Attending Clinician Unavailable LUKAS_DARIUSZ_Zachary_Melecio Attending Clinician Unavailable Ricarda Prabhakar MD Attending Clinician G125, Vaccine - Pfizer Attending Clinician Unavailable Jt Sharma Attending Clinician [phone] Doctor Unassigned, Name Attending Clinician Unavailable [facility] Attending Clinician Pob, Lab Main Attending Clinician Unavailable Kevin LIMON Admitting Clinician Unavailable RAUL_Zachary_Melecio Admitting Clinician Unavailable Payers Payer Name Policy Type Policy Number Effective Date Expiration Date S alan MEDICARE PART A AND [id number] 2014 B 00:00:00 [employer] MEDICARE PPO [id number] 2019 2021 00:00:00 00:00:00 [employer] MEDICARE HMO [id number] 2019 POS 00:00:00 [employer] MEDICARE OUT [id number] 2019 OF NETWORK 00:00:00 [employer] (MEDICARE [id number] 2019 REPLACEMENT PPO) 00:00:00 Problems Condition Condition Condition Status Onset Resolution Last Treating Co mments Source Name Details Category Date Date Treatment Clinician Date Fatigue Fatigue Disease Active Univers 1-25 ity of 00:00: [place] [facility] Polyuria Polyuria Disease Active Unive rs 7-30 ity of 00:00: Medical Branch Salivary Salivary Disease Active Unive rs calculus calculus 7- ity of 00:00: [place] [facility] Prediabete Prediabete Disease Active U [...] Univers crepitus crepitus 4-17 ity of 00:00: [place] [facility] TMJ TMJ Disease Active Univers derangemen derangemen 4-17 it y of t t 00:00: [place] [facility] Lumbosacra Lumbosacra Disease Active U nivers l l 8-28 ity of spondylosi spondylosi [place] without s without 00 Medi ang myelopathy myelopathy Br anch Sinusitis, Sinusitis, Disease Active Overview : Univers chronic chronic 4-26 Formattin ity o f 00:00: g of this 00 note Medical might be Branch different from the original. ICD10 Diagnosis Term [employer] Utility Hypothyroi Hypothyroi Disease Active U nivers dism dism 1-30 ity of 00:00: [place] 00 Medical Branch Piriformis Piriformis Disease Active U nivers syndrome syndrome ity of [facility] Allergies, Adverse Reactions, Alerts Allergy Allergy Status Severity Reaction(s) Onset Inactive Treating Comm ents Source Name Type Date Date Clinician NO KNOWN Allergy Active [facility] NO KNOWN Drug Active Univers ALLERGIE Class ity of S [facility] Social History Social Habit Start Date Stop Date Quantity Comments Source History SDOH University o f Alcohol Frequency [place] [facility] History [facility] University o f Alcohol Std Drinks [facility] History SDTN University o f Alcohol Binge [facility] al Branch Alcohol intake 2021-12-16 2021-12-16 Ex-drinker [facility] 00:00:00 00:00:00 (finding) Cigarettes smoked 2011-04-23 2011-04-23 Univers ity of current (pack per 00:00:00 00:00:00 [facility] ) - Reported Branch Cigarette 2011-04-23 2011-04-23 University of pack-years 00:00:00 00:00:00 [facility] Tobacco use and 2011-04-23 2011-04-23 Former user Universi ty of exposure 00:00:00 00:00:00 [facility] Alcohol Comment 2011-04-23 2011-04-23 socially, 1x Univers ity of 00:00:00 00:00:00 month [facility] History of tobacco 2010-11-23 User of Univer sity of use 00:00:00 smokeless [facility] Sex Ass[birth year] [facility] 00:00:00 00:00:00 Smoking Status Start Date Stop Date Source Tobacco smoking [facility] consumption unknown Never smoked tobacco [facility] Former smoker 2011-04-23 00:00:00 2011-04-23 Ages [place] o f [place] 00:00:00 [facility] Medications Ordered Filled Start Stop Current Ordering Indication Dosage Frequency Signature Comments Components Source Medication Medication Date Date Medication? Clinician (SIG) Name Name NORDITROPIN Yes [id number] INJECT Univers FLEXPRO 5 3-09 0.6MG INTO ity of mg/1.5 mL 00:00: THE SKIN [place] (3.3 mg/mL) 00 DAILY Medical solution Branch pantoprazol 2023- No [id number] 40mg Take 1 UT e 27 11-22 tablet (40 Health (Protonix) 00:00: 05:59 mg total) 40 MG EC 00 :00 by mouth 1 tablet (one) time each day before breakfast. Do not crush, chew, or split. levothyroxi Yes [id number] 112ug Take 1 Univers ne 1-20 tablet by ity of (SYNTHROID) 00:00: mouth [place] 112 mcg 00 every Medical tablet morning. Branch liothyronin 2020-10 Yes [id number] TAKE 2 Univers e 5 mcg 1-08 TABLETS BY ity of tablet 00:00: MOUTH AT [place] 00 9AM, 2 Medical TABLETS AT [place] 12PM, AND 1 TABLET IN THE EVENING Cholecalcif Yes [id number] 81678F Take 1 Univers sammy, 9-10 capsule by ity of Vitamin D3, 00:00: mouth [place] (D3-50 00 weekly. Medical CHOLECALCIF Branch SAMMY) 1,250 mcg (50,000 unit) capsule Insulin 2018-10 Yes Use as Univers [place], 2-11 directed ity of Disposable, 00:00: to inject [place] (NOVOFINE 00 Norditropi Medi ang 32) 32 n daily. Branch gauge x Dx E 23.0 10/29" Ndle liraglutide Yes [id number] 3mg inject 3 Univers (SAXENDA) 3 7-31 [...] } Sprays in ity of 0.6 % [place] 00:00: each [place] 00 nostril Medical daily. Branch triamcinolo 2013-10 Yes Apply to U nivers ne 1-19 area(s) 2 ity of (KENALOG) 00:00: (two) [place] 0.025 % 00 times Medical cream daily. Branch mometasone 2013-10 Yes 1{spray Use 1 Uni vers (NASONEX) 1-04 } [place] in ity of 50 00:00: each [place] mcg/actuati 00 nostril 2 Med ical on nasal (two) Branch spray times daily. albuterol 2013-10 Yes 2{puff} Inhale 2 U nivers (PROAIR 1-04 Puffs ity of HFA) 90 00:00: every 6 [place] mcg/actuati 00 (six) Medical on inhaler hours as Branc h needed for Wheezing, Shortness of Breath or Chest tightness. fluconazole 2013- Yes [id number] Take one Univers (DIFLUCAN) 0-29 tab po ity of 150 mg 00:00: today then [place] tablet 00 repeat in Medical 3 days. Branch Immunizations Ordered Filled Immunization Date Status Comments [facility] e Immunization Name Name Influenza, 2021-10-22 Completed [facility] quadrivalent, 00:00:00 injectable, preservative free COVID-19 Pfizer 2021-10-22 [facility] 00:[facility]:00 Influenza, 2021-10-22 Completed [facility] quadrivalent, 00:00:00 injectable, preservative free COVID-19 Pfizer 2021-10-22 [facility] Vacc[facility] 00:00:00 Influenza Virus 2014-08-23 Completed Universit y of Vaccine Quad IM 3+ 00:00:00 [facility] Branch Vital Signs Vital Name Observation Time Observation Value Comments Source WEIGHT 2021-06-22 20:00:00 58.06 kg HEIGHT 2021-06-21 14:28:00 154.9 cm WEIGHT 2021-06-21 14:28:00 57.5 kg Systolic blood pressure 2021-11-21 17:01:00 136 mm[Hg] [facility] Diastolic blood pressure 2021-11-21 17:01:00 84 mm[Hg] [facility] Heart rate 2021-11-21 17:01:00 87 /min [facility] Body temperature 2021-11-21 17:01:00 37 [facility] [place] [facility] Body height 2021-11-21 17:01:00 149.9 cm [facility] Body weight 2021-11-21 17:01:00 57.323 kg [facility] BMI 2021-11-21 17:01:00 25.52 kg/m2 [facility] WEIGHT 2021-06-22 20:00:00 58.06 kg HEIGHT 2021-06-21 14:28:00 154.9 cm WEIGHT 2021-06-21 14:28:00 57.5 kg Procedures This patient has no known procedures. Encounters Start End Encounter Admission Attending Care Care Encounter Source Date/Time Date/Time Type Type Clinicians Facility Department ID 2021-11-21 Outpatient MAYNOR [facility] [id number] [place] 11:49:[address] [facility] 2021-10-21 Outpatient [facility] [id number] [place] 22:16:26 [facility] 2021-10-14 Outpatient MAYNOR, [facility] [id number] [place] 16:35:[address] [facility] 2021-08-04 Inpatient ER ASHLY, [facility] [id number] [facility] 10:20:24 CHRISTOPHER 2022-06-18 2022-06-18 Outpatient R [facility] [id number] Univers 10:30:00 10:30:00 KIRAN [id number] [facility] 2022-06-18 2022-06-18 Outpatient R [facility] [id number] Univers 10:30:00 10:30:00 KIRAN [facility] 2022-02-12 2022-02-12 Outpatient [facility] PRIV PRIV [id number] [facility] 03:40:00 03:40:00 _Lotze_P [id number] Medic al 2022-02-11 2022-02-11 Refill [facility] [id number] [place] [address] 00:00:00 00:00:00 Kiran Chowdary PRIMARY 350.1.13.10 it of [facility] 4.2.7.2.686 Huber [place] [id number] [address] 2022-01-15 2022-01-15 Outpatient [facility] PRIV PRIV [id number] [facility] 02:55:00 02:55:00 _Lotze_P [id number] Medic al 2021-12-18 2021-12-18 Outpatient [facility] PRIV PRIV [id number] [facility] 04:21:00 04:21:00 _Lotze_P [id number] Medic al 2021-11-21 2021-11-21 Office KALLI Smith [facility] [id number] [place] 10:00:00 11:49:53 Visit Jt MED 350.1.13.58 Chaitanya deng [address] 9.2.7.2.686 [id number] 2021-11-21 2021-11-21 Outpatient [facility] PRIV PRIV [id number] [facility] 06:16:00 06:16:00 _Lotze_P [id number] Medic al 2021-11-04 2021-11-04 Outpatient [facility] PRIV PRIV [id number] [facility] 05:32:00 05:32:00 _Lotze_P [id number] Medic al 2021-10-29 2021-10-29 Outpatient [facility] PRIV PRIV [id number] [facility] 04:24:00 04:24:00 _Lotze_P [id number] Medic al 2021-10-23 2021-10-23 Outpatient [facility] PRIV PRIV [id number] [facility] 02:06:00 02:06:00 _Lotze_P [id number] Medic al 2021-10-22 2021-10-22 Immunizati G125, Covid UTP 6414 1.2.840.11 4 [id number] [place] 13:30:00 13:40:00 on Vaccine - [address] 350.1.13.58 Health Pfizer 9.2.7.2.686 [id number] 3 2021-10-16 2021-10-16 Outpatient [facility] PRIV PRIV [id number] [facility] 03:48:00 03:48:00 _Lotze_P [id number] Medic al 2021-10-16 2021-10-16 Outpatient Lotze, PRIV PRIV [id number] c-7 00:00:00 00:00:00 Malcolm a6f-32qt-8 Jt f19-5p3hjk f0c32b 2021-10-09 2021-10-09 Outpatient [facility] PRIV PRIV [id number] [facility] 05:30:00 05:30:00 _Lotze_P [id number] Medic al 2021-10-07 2021-10-07 Outpatient [facility] PRIV PRIV [id number] [facility] 04:49:00 04:49:00 _Lotze_P [id number] Medic al 2021-10-07 2021-10-07 Outpatient Lotze, PRIV PRIV [id number] 2-5 00:00:00 00:00:00 Malcolm cba-11ec-8 Jt [id number] 2021-10-03 2021-10-03 Outpatient [facility] PRIV PRIV [id number] [facility] 03:07:00 03:07:00 _Lotze_P [id number] Medic al 2020-11-16 2020-11-16 Hospital [facility] 1.2.840.114 [id number] 15:00:00 23:59:00 Encounter Kiran [place] 350.1.13.10 [place] 4.2.7.2.686 [place] [id number] 2020-11-16 2020-11-16 Orders Doctor KATHY 1.2.840.114 [id number] 00:00:00 00:00:00 Only Unassigned, JON 350.1.13.10 [place] [address].2.7.2.686 [id number] 2020-11-07 2020-11-07 Telephone [facility] [id number] [id number] 00:00:00 00:00:00 Kiran PRIMARY 350.1.13.10 [facility] 4.2.7.2.686 PAVILLION [id number] 2020-11-02 2020-11-02 Patient [facility] 1.2.840.114 [id number] 00:00:00 00:00:00 Secure Msg Kiran [facility] 350.1.13.10 CARE 4.2.7.2.686 PAVILLION [id number] 2020-08-08 2020-08-08 Telemedici [facility] 1.2.840.114 [id number] 09:49:18 16:39:55 ne Visit [facility] PRIMARY 350.1.13.10 CARE 4.2.7.2.686 PAVILLION [id number] 2020-02-14 2020-02-14 Patient Doctor [facility] 1.2.840.114 [id number] 00:00:00 00:00:00 Secure Msg Unassigned, MULTISPEC 350.1.13.10 [place] IALTY 4.2.7.2.686 [facility] [id number] [facility] 2020-02-11 2020-02-11 Refill Ashley [facility] 1.2.840.114 [id number] 00:00:00 00:00:00 Souad MULTISPEC 350.1.13.10 IAFLAVIA 4.2.7.2.686 NEW [facility] [id number] [facility] [place] [facility] 2020-02-07 2020-02-07 Acute Care Nurse Practitioner Araceli Sheehan [facility] 1.2.840.114 [id number] 11:02:28 12:15:54 Visit Lab Main [place] 350.1.13.10 [place] 4.2.7.2.[address] Professio [id number] 2020-02-07 2020-02-07 Refill Ashley, [facility] 1.2.840.114 [id number] 00:00:00 00:00:00 Souad MULTISPEC 350.1.13.10 IAY 4.2.7.2.686 NEW U[facility] [id number] [facility] 2019-07-29 2019-07-29 Outpatient MHIE MHIE [id number] [facility] 11:30:00 11:30:00 07 pineda Romero 2019-06-06 2019-06-06 Outpatient MHIE MHIE [id number] [facility] 16:45:00 16:45:00 08 pineda Romero 2019-05-04 2019-05-04 Outpatient MHIE MHIE [id number] [facility] 11:15:00 11:15:00 06 pineda Romero 2019-02-03 2019-02-03 Outpatient MHIE MHIE [id number] [facility] 14:00:00 14:00:00 05 pineda Romero 2018-09-22 2018-09-22 Outpatient MHIE MHIE [id number] [facility] 15:00:00 15:00:00 04 pineda Romero 2018-08-04 2018-08-04 Outpatient MHIE MHIE [id number] [facility] 10:30:00 10:30:00 03 pineda Romero 2018-07-29 2018-07-29 Outpatient MHIE MHIE [id number] [facility] 14:45:00 14:45:00 02 pineda Romeor 2018-06-17 2018-06-17 Outpatient MHIE MHIE [id number] [facility] 15:15:00 15:15:00 01 pineda Romero 2018-05-04 2018-05-04 Outpatient MHIE MHIE [id number] [facility] 13:30:00 13:30:00 00 l Nick Results Test Description Test Time Test Comments Results Result Sour e Comments TISSUE EXAM 2021-06-26 Surgical Pathology Report 11:39:00 Case: [id number] Authorizing Provider: Khai Blum MD Collected: 06/23/2021 08:28 AM Ordering Location: [address] Med/Surg Received: 06/24/2021 10:12 AM Pathologist: [...] TO FOLLOW Signing Pathologist Direct Phone Line: [phone] y signed by Ce Iniguez MD on 06/25/2021 at 11:15 AM/[id number] A. Small bowel NOS. B. Biopsy gastric [...] evaluated Immunohistochemistry technical testing was performed at [facility], Pathology Laboratory where it was developed and [...] testing.[facility], Department of Pathology, [address] [place] [address], [facility], Department of Pathology, [address] [place] [address], [facility] of [facility], [address] [place] [address], HEMORRHAGE 2021-06-25 Unlisted IMAGING, RBC 09:55:00 Reason for Exam - Click [facility] - Yes and Enter [facility] CENTERName: Reason DELBERT LAW Below->No : 1960 Sex: F FINAL REPORT PROCEDURE: HEMORRHAGE STUDY with RBCs CPT CODE: 70620 INDICATION: Gastrointestinal Bleeding PROTOCOL: 28.0 mCi of [...] MDReport Verified Date/Time: 06/25/2021 09:55:14 Reading Location: [address] [address] [facility] Reading Room C METABOLIC PANEL 2021-06-25 06:19:00 [...] NOT 1092) ACCURATE CRE ATININE CLEARANCE IN [place] EDICTING GLOMERULAR FILT RATION RATE. ESTIMATED GFR IS NOT APPLICABLE FOR DIALYSIS PATIENTS. Audit Analyst ID - LITOOperator ID - LITOOperator ID - LITOOperator ID - LITOOperator ID - LITOOperator ID - LITOOperator ID - LITOOperator ID - LITOOperator ID - LITOOperator ID - [id number] 06:08:00 Test Item Value Reference Range Interpretation Comments MAGNESIUM (BEAKER) (test code = 1.9 mg/dL 1.5-3.0 627) Audit Analyst ID - LITOOperator ID - LITOOperator ID - LITOOperator ID - LITOCBC W/PLT COUNT & AUTO [id number] 05:43:00 Test Item Value Reference Range Interpretation [...] 0-0 PERCENT (BEAKER) (test code = 2801) [id number] 05:20:00 Test Item Value Reference Range Interpretation Comments MAGNESIUM (BEAKER) (test code = 1.9 mg/dL 1.5-3.0 627) Audit Analyst ID - [id number] ID - [id number] ID - [id number] ID - [id number] BASIC METABOLIC [id number] 05:19:00 Test Item Value Reference Range Interpretation [...] S NOT APPLICABLE FOR DIALYSIS PATIEN TS. Audit Analyst ID - [id number] ID - [id number] ID - [id number] ID - [id number] ID - LVGS07Kerppaau ID - [id number] ID - NOWW35Hqjxisxq ID - RACC12Euuuzwle ID - [id number] W/PLT COUNT & AUTO [id number] 04:59:00 Test Item Value Reference Range Interpretation [...] (test code = 2801) VITAMIN B12 AND [id number] 07:35:00 Test Item Value Reference Range Interpretation Comments VITAMIN B12 1390 pg/mL 211-911 H (BEAKER) (test code = 774) FOLATE (BEAKER) 13.60 ng/mL See_Comment [Automated message] (test code = 362) The system which generated this result transmitted ref erence range: >=5.4. T he reference range was not used to interpr et this result as normal/abnormal . Audit Analyst ID - [id number] ID - [id number], TIBC, % SAT. (WITHOUT FERRITIN)2021-06-23 07:12:00 Test Item Value Reference Range Interpretation Comments IRON (BEAKER) (test code = 547) 84.0 ug/dL 45.0-170.0 TOTAL IRON BINDING CAPACITY 341 ug/dL 250-550 (BEAKER) (test code = 769) IRON % SATURATION (2) (BEAKER) 25 % 20-55 (test code = 2590) Audit Analyst ID - [id number] ID - [id number] METABOLIC [id number] 07:12:00 Test Item Value Reference Range Interpretation [...] S NOT APPLICABLE FOR DIALYSIS PATIEN TS. Audit Analyst ID - [id number] ID - WZYH35Ntxpuyom ID - PMNI44Ozyxpapu ID - RHFX79Xtqprgww ID - ZPVB19Aefyfjif ID - AUHJ17Gqkavzcp ID - CILS00Mivjffve ID - DJBS82Mionlpts ID - TZWD71Dtvpquov ID - [id number] 06:45:00 Test Item Value Reference Range Interpretation Comments MAGNESIUM (BEAKER) (test code = 2.0 mg/dL 1.5-3.0 627) Audit Analyst ID - [id number] ID - IURZ32Dwaskznd ID - MRSR43Vnuoaadi ID - [id number] C-REACTIVE [id number] 06:42:00 Test Item Value Reference Range Interpretation Comments C-REACTIVE PROTEIN (BEAKER) (test 0.02 mg/dL 0.00-0.50 code = 676) Audit Analyst ID - [id number] W/PLT COUNT & AUTO [id number] 06:29:00 Test Item Value Reference Range Interpretation [...] (BEAKER) (test code = 2801) HEMOGLOBIN AND [id number] 20:22:00 Test Item Value Reference Range Interpretation Comments HEMOGLOBIN (BEAKER) (test code = 8.6 GM/DL 12.0-15.5 L 410) HEMATOCRIT (BEAKER) (test code = 26.6 % 36.0-46.0 L 411) URINALYSIS W/ REFLEX URINE [id number] 16:52:00 Test Item Value Reference Range Interpretation [...] (test code = 2795) MR, BRAIN, WITHOUT [id number] 14:05:00Outside CT head unremarkable.Unlisted Reason for Exam - Click Yes and Enter Reason Below->[facility] 1960 Sex: FFINAL REPORT [...] MDReport Verified Date/Time: 06/22/2021 14:05:16 Reading Location: [address] Neuro Reading Room REHENSIVE METABOLIC [id number] 09:28:00 Test Item Value Reference Range Interpretation [...] S NOT APPLICABLE FOR DIALYSIS PATIEN TS. Audit Analyst ID - [id number] ID - [id number] ID - [id number] ID - ODOKS570Ofjkfhoh ID - LEWCR444Zbrfbvpa ID - MFLJA925Mtpkjiab ID - RSSVT701Nhagdhtz ID - YWTYX591Ppauwhxd ID - YHVTQ862Cadirwpt ID - TBFQH103Uiykcxsw ID - LGVWX167Yvtffimf ID - [id number] ID - [id number] ID - WIIQF077Wqkhnjuq ID - SCBQC386Ybmerqxm ID - EBVWZ343Budrwbwe ID - CXKPZ976Oseysyjc ID - FSZSS360Ryephncb ID - [id number] HEMOGLOBIN AND [id number] 09:10:00 Test Item Value Reference Range Interpretation Comments HEMOGLOBIN (BEAKER) (test code = 7.5 GM/DL 12.0-15.5 L 410) HEMATOCRIT (BEAKER) (test code = 23.1 % 36.0-46.0 L 411) CBC W/PLT COUNT & AUTO [id number] 05:59:00 Test Item Value Reference Range Interpretation [...] PERCENT (BEAKER) (test code = 2801) SARS-COV2/RT-PCR ([facility])2021-06-21 18:53:00 Test Item Value Reference Range Interpretation Comments SARS-COV2/RT-PCR Negative Negative The SARS-Co V-2 target (test code = nucleic acids a re not [id number]) detected in thi s specimen. Negative result [...] revoked sooner. Fact Sheet for Healthcare Providers: https://www.[facility] id.My Single Point/Documents/Xpert%20Xpress%20SARS%20CoV-2/Fact%20Sheets/213-0331%20SARS-COV -2%20HEALTHCARE%20PROVIDERS%20FACT%20SHEET.pdf Fact Sheet for Healthcare Patients: https://www.[facility].My Single Point/Documents/Xpert %20Xpress%20SARS%20CoV-2/Fact%20Sheets/302-3801%55HGYF-IVE-9%20PATIENT%20FACT%20 SHEET.pdfHA[facility]ARD [facility] W/PLT COUNT & AUTO [id number] 16:35:00 Test Item Value Reference Range Interpretation [...] PERCENT (BEAKER) (test code = 2801) TROPONIN [id number] 16:09:00 Test Item Value Reference Range Interpretation [...] failure, acidosis, acute neurological disease, and persistent tachyarrhythmia.Audit Analyst ID - [id number] 16:03:00 Test Item Value Reference Range Interpretation Comments PROTIME (BEAKER) 11.1 seconds 9.3-12.0 Final Infor mation (test code = 759) (Auto Outp ut) INR (BEAKER) (test 1.00 See_Comment Final Inf ormation code = 370) (Auto Output) [Automated mess age] The system [employer] generated this result transmitted ref erence range: <=5.90. The reference range was not used to int erpret this result as normal/abnormal . RECOMMENDED COUMADIN/WARFARIN INR THERAPY RANGESSTANDARD DOSE: 2.0 - 3.0 Includes: PROPHYLAXIS forvenous thrombosis, systemic embolization; TREATMENT for venous thrombosis and/or pulmonary embolus.HIGH RISK: Target INR is 2.5-3.5 for patients with mechanical heart valves.[id number] 16:03:00 Test Item Value Reference Range Interpretation Comments PARTIAL THROMBOPLASTIN 26.8 seconds 23.0-35.0 Final Information TIME (BEAKER) (test (Auto Ou tput) code = 760)
[2022-03-17] MEDS ORDERED: ACETAMINOPHEN 325 MG TABLET ONE (04:18)
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
[2022-03-17 06:26] VITALS: TEMP 97.9
[2022-03-17 06:29] VITALS: BP 108/74; O2SAT 98
--- NOTE | 2022-03-17 13:23 | RAD REPORT ---
EXAM DESCRIPTION: 1. CT of the head without contrast 2. CT of the cervical spine without contrast. CLINICAL HISTORY: Trauma COMPARISON: None available TECHNIQUE: Axial CT of the head obtained from the skull apex to the skull base without contrast. Axi al CT images of the cervical spine obtained from the skull base through the thoracic inlet. Sagittal and coronal reformatted images available. This exam was performed according to our departmental dose- optimization program, which includes automated exposure control, adjustment of the mA and/or kV accor ding to patient size and/or use of iterative reconstruction technique. FINDINGS: CT head: No acute intracranial hemorrhage identified. No mass, mass effect, shift of the midline, abnormal ext ra-axial fluid collection or CT evidence of acute ischemic change identified. The ventricular system is unremarkable. No acute abnormalities of the supratentorial white matter, basal ganglia, cerebell um, or brainstem. Mild mucosal thickening of the paranasal sinuses. Mastoid air cells are well aerated. No skull fractu re identified. Visualized orbits and globes are unremarkable. Cervical CT: Straightening of the cervical lordosis may be secondary to patient positioning.. The atlantoaxial, atlantodental, and occipitoatlantal intervals are preserved. No fracture identified. Vertebral body height preserved. Prevertebral soft tissues are unremarkable. Moderate loss of intervertebral disc height at C5/6. Multilevel endplate spondylosis, uncovertebral s purring, and facet arthropathy. Posterior disc osteophyte complex at C5/6 encroaches on the anterior spinal canal. Visualized skull base is intact. Visualized thyroid is unremarkable. No cervical lymphadenopathy . No pneumothorax in the visualized lung apices. IMPRESSION: 1. No acute intracranial abnormality. 2. No acute fracture or subluxation of the cervical spine. Electronically signed by: Vish Rain 03/17/2022 5:25 AM CDT Due to temporary technical issues with the PACS/Fluency reporting system, reports are being signed by the in house radiologist without review as a courtesy to ensure prompt reporting. The interpreting r adiologist is fully responsible for the content of the report.
== END 2022-03-17 06:15 | disposition home or self-care (01) ==
LOC: ER 03:53
DX: S09.90XA Unspecified injury of head, initial encounter (principal); S16.1XXA Strain of muscle, fascia and tendon at neck level, initial encounter; W20.8XXA Other cause of strike by thrown, projected or falling object, initial encounter; Y93.9 Activity, unspecified; Y92.9 Unspecified place or not applicable; F43.10 Post-traumatic stress disorder, unspecified; I48.0 Paroxysmal atrial fibrillation; G43.909 Migraine, unspecified, not intractable, without status migrainosus
CPT/HCPCS: 70450; 72125; 99284

== ENCOUNTER 2022-06-02 02:43 | Emergency (ER) | payer OTHER ==
--- OUTSIDE RECORDS SUMMARY | 2022-06-02 02:47 | XMS REPORT | Continuity of Care Document ---
:1960 [facility] t Address [address] [place] [address] Care Team Providers Name Role Phone Angeline Santos Primary Care Physician [phone] TRAVIS MCGUIRE Attending Clinician Unavailable CHRISTOPHER LIMON Attending Clinician Unavailable KIRAN PRABHAKAR Attending Clinician Unavailable Kiran Prabhakar MD Attending Clinician RICHARD Attending Clinician Unavailable LUKAS_DARIUSZ_Lotze_P Attending Clinician Unavailable Malcolm Sharma Attending Clinician [phone], Covid Vaccine - Pfizer Attending Clinician Unavailable Doctor Unassigned, [place] Attending Clinician Unavailable Syd Peng Attending Clinician Pob, [facility] Main Attending Clinician Unavailable CHRISTOPHER LIMON Admitting Clinician Unavailable RICHARD Admitting Clinician Unavailable RAUL_Lotze_P Admitting Clinician Unavailable Payers Payer Name Policy Type Policy Number Effective Date Expiration Date S alan AETNA MEDICARE PPO [id number] 2019 2021 00:00:00 00:00:00 MEDICARE PART A AND [id number] 2014 B 00:00:00 AETNA MEDICARE HMO [id number] 2019 POS 00:00:00 AETNA MEDICARE OUT [id number] 2019 OF NETWORK 00:00:00 MEDICARE B-[place]: [id number] 2014 NOVDivX 00:00:00 AETNA (MEDICARE [id number] 2019 REPLACEMENT PPO) 00:00:00 Problems Condition Condition Condition Status Onset Resolution Last Treating Co mments Source Name Details Category Date Date Treatment Clinician Date Fatigue Fatigue Disease Active Univers 1-25 ity of 00:00: [place] [facility] Polyuria Polyuria Disease Active Unive rs 7-30 ity of 00:00: [place] [facility] Salivary Salivary Disease Recurre Univ ers calculus calculus nce 7- ity of 00:00: [place] [facility] Prediabete Prediabete Disease Active U [...] ity o f 00:00: g of this [place] 00 note Medical might be Branch different from the original. ICD10 Diagnosis Term Grain Scooper Utility Hypothyroi Hypothyroi Disease Active U nivers dism dism 1-30 ity of 00:00: [place] 00 Medical Branch Piriformis Piriformis Disease Active U nivers syndrome syndrome ity of [facility] Branch Allergies, Adverse Reactions, Alerts Allergy Allergy Status Severity Reaction(s) Onset Inactive Treating Comm ents Source Name Type Date Date Clinician NO KNOWN Drug Active Univers ALLERGIE Class ity of S [facility] NO KNOWN Allergy Active [facility] Social History Social Habit Start Date Stop Date Quantity Comments Source History SDOH University o f Alcohol Frequency [facility] edical Branch History SDOH University o f Alcohol Std Drinks [place] [facility] [place] History SDAK University o f Alcohol Binge [facility] Branch Alcohol intake 2021-12-16 2021-12-16 Ex-drinker [place] [facility] 00:00:00 00:00:00 (finding) Cigarettes smoked 2011-04-23 2011-04-23 Univers ity of current (pack per 00:00:00 00:00:00 [facility] ) - Reported Branch Cigarette 2011-04-23 2011-04-23 University of pack-years 00:00:00 00:00:00 [facility] Tobacco use and 2011-04-23 2011-04-23 Former smokeless Uni versity of exposure 00:00:00 00:00:00 tobacco user [facility] Alcohol Comment 2011-04-23 2011-04-23 socially, 1x Univers ity of 00:00:00 00:00:00 month [facility] History of tobacco 2010-11-23 User of Univer sity of use 00:00:00 smokeless [facility] Sex Assigned At [birth year] [place] [facility] 00:00:00 00:00:00 Smoking Status Start Date Stop Date Source Tobacco smoking [facility] consumption unknown Never smoked tobacco [facility] Ex-smoker 2011-04-23 00:00:00 2011-04-23 University o f [place] 00:00:00 [facility] Medications Ordered Filled Start Stop Current Ordering Indication Dosage Frequency Signature Comments Components Source Medication Medication Date Date Medication? Clinician (SIG) Name Name levothyroxi Yes [id number] TAKE 1 Univers ne 7-22 TABLET BY ity of (SYNTHROID) 00:00: MOUTH [place] 112 mcg 00 EVERY DAY Medical tablet IN THE Branch MORNING NORDITROPIN Yes [id number] INJECT Univers FLEXPRO 5 3-09 0.6MG INTO ity of mg/1.5 mL 00:00: THE SKIN [place] (3.3 mg/mL) 00 DAILY Medical solution Branch NORDITROPIN Yes [id number] INJECT Univers FLEXPRO 5 3-09 0.6MG INTO ity of mg/1.5 mL 00:00: THE [place]IN [place] (3.3 mg/mL) 00 DAILY Medical solution [place] pantoprazol 2022- No [id number] 40mg Take 1 UT e 111-22 tablet (40 Health (Protonix) 00:00: 05:59 mg total) 40 MG EC 00 :00 by mouth 1 tablet (one) time each day before breakfast. Do not crush, chew, or split. levothyroxi Yes [id number] 112ug Take 1 Univers ne 1-20 tablet by ity of (SYNTHROID) 00:00: mouth [place] 112 mcg 00 every Medical tablet morning. [place] levothyroxi 2021- No [id number] 112ug Take 1 Univers ne 1-20 07-22 tablet by ity of (SYNTHROID) 00:00: 00:00 mouth [place] 112 mcg 00 :00 every Medical tablet morning. [place] liothyronin 2020-10 Yes [id number] TAKE 2 Univers e 5 mcg 1-08 TABLETS BY ity of tablet 00:00: MOUTH AT [place] 00 9AM, 2 Medical TABLETS AT [place] 12PM, AND 1 TABLET IN THE EVENING liothyronin 2020-10 Yes [id number] TAKE 2 Univers e 5 mcg 1-08 TABLETS BY ity of tablet 00:00: MOUTH AT [place] 00 9AM, 2 Medical TABLETS AT [place] 12PM, AND 1 TABLET IN THE EVENING Cholecalcif Yes [id number] 16242C Take 1 Univers sammy, 9-10 capsule by ity of Vitamin D3, 00:00: mouth [place] (D3-50 00 weekly. Medical CHOLECALCIF [place] SAMMY) 1,250 mcg (50,000 unit) capsule Cholecalcif Yes [id number] 44711S Take 1 Univers sammy, 9-10 capsule by ity of Vitamin D3, 00:00: mouth [place] (D3-50 00 weekly. Medical CHOLECALCIF [place] SAMMY) 1,250 mcg (50,000 unit) capsule Insulin 2018-10 Yes Use as Univers [place], 2-11 directed ity of Disposable, 00:00: to inject [place] (NOVOFINE 00 Norditropi Medi ang 32) 32 n daily. [place] gauge x Dx E 23.0 10/29" Ndle Insulin 2018-10 Yes Use as Univers [place], 2-11 directed ity of Disposable, 00:00: to inject [place] (NOVOFINE 00 Norditropi Medi ang 32) 32 n daily. Branch gauge x Dx E 23.0 10/29" Ndle liraglutide Yes [id number] 3mg inject 3 Univers (SAXENDA) 3 7-31 mg under ity of mg/0.5 mL 00:00: the skin [place] (18 mg/3 00 daily. Medical mL) PnIj Start with Branc h 0.6 mg daily and increase by 0.6 mg every week till you reach 3 mg daily liraglutide Yes [id number] 3mg inject 3 Univers (SAXENDA) 3 7-31 [...] } Sprays in ity of 0.6 % [place] 00:00: each [place] 00 nostril Medical daily. Branch Olopatadine 2013-10 Yes 2{spray Use 2 Un jeanette (PATANASE) 2-16 } Sprays in ity of 0.6 % [place] 00:00: each [place] 00 nostril Medical daily. Branch triamcinolo 2013-10 Yes Apply to Un jeanette ne 1-19 area(s) 2 ity of (KENALOG) 00:00: (two) [place] 0.025 % 00 times Medical cream daily. Branch triamcinolo 2013-10 Yes Apply to Un jeanette ne 1-19 area(s) 2 ity of (KENALOG) 00:00: (two) [place] 0.025 % 00 times Medical cream daily. Branch mometasone 2013-10 Yes 1{spray Use 1 Uni vers (NASONEX) 1-04 } [place] in ity of 50 00:00: each [place] [...] Use 1 Uni vers (NASONEX) 1-04 } [place] in ity of 50 00:00: each [place] mcg/actuati 00 nostril 2 Med ical on nasal (two) Branch spray times daily. albuterol 2013-10 Yes 2{puff} Inhale 2 U nivers (PROAIR 1-04 Puffs ity of HFA) 90 00:00: every 6 [place] mcg/actuati 00 (six) Medical on inhaler hours as Branc h needed for Wheezing, Shortness of Breath or Chest tightness. fluconazole 2013-10 Yes [id number] Take one Univers (DIFLUCAN) 0-29 tab po ity of 150 mg 00:00: today then [place] tablet 00 repeat in Medical 3 days. Branch fluconazole 2013-10 Yes [id number] Take one Univers (DIFLUCAN) 0-29 tab po ity of 150 mg 00:00: today then [place] tablet 00 repeat in Medical 3 days. [place] Immunizations Ordered Filled Immunization Date Status Comments [facility] Immunization Name Name COVID-19 Pfizer 2021-10-22 [facility] 00:[facility]:00 Influenza, 2021-10-22 Completed [place] [facility] quadrivalent, 00:00:00 injectable, preservative free Influenza, 2021-10-22 Completed [place] [facility] quadrivalent, 00:00:00 injectable, preservative free COVID-19 Pfizer 2021-10-22 [facility] 00:00:00 Influenza, 2021-10-22 [facility] quadrivalent, 00:00:00 injectable, preservative free COVID-19 Pfizer 12 2021-10-22 [facility] Vacc[facility] 00:00:00 Influenza Virus 2014-08-23 Completed Universit y of Vaccine Quad IM 3+ 00:00:00 [facility] Influenza Virus 2014-08-23 Completed Universit y of Vaccine Quad IM 3+ 00:00:00 [facility] Vital Signs Vital Name Observation Time Observation Value Comments Source WEIGHT 2021-06-22 20:00:00 58.06 kg HEIGHT 2021-06-21 14:28:00 154.9 cm WEIGHT 2021-06-21 14:28:00 57.5 kg Systolic blood pressure 2021-11-21 17:01:00 136 mm[Hg] [facility] Diastolic blood pressure 2021-11-21 17:01:00 84 mm[Hg] [facility] Heart rate 2021-11-21 17:01:00 87 /min [facility] Body temperature 2021-11-21 17:01:00 37 Sri [facility] ealth Body height 2021-11-21 17:01:00 149.9 cm [facility] Body weight 2021-11-21 17:01:00 57.323 kg [facility] BMI 2021-11-21 17:01:00 25.52 kg/m2 [facility] WEIGHT 2021-06-22 20:00:00 58.06 kg HEIGHT 2021-06-21 14:28:00 154.9 cm WEIGHT 2021-06-21 14:28:00 57.5 kg Procedures This patient has no known procedures. Encounters Start End Encounter Admission Attending Care Care Encounter Source Date/Time Date/Time Type Type Clinicians Facility Department ID 2022-05-20 Outpatient [facility] [id number] [place] 14:49:45 [id number] [facility] 2022-04-22 Outpatient [facility] [id number] [place] 15:55:44 [id number] [facility] 2021-11-21 Outpatient MAYNOR [facility] [id number] [place] 11:49:37 [facility] 2021-10-21 Outpatient [facility] [id number] [place] 22:16:26 [facility] 2021-10-14 Outpatient MAYNOR [facility] [id number] [place] 16:35:48 [facility] 2021-08-04 Inpatient ER SHIEH, [facility] [id number] [facility] 10:20:24 CHRISTOPHER 2022-06-18 2022-06-18 Outpatient [facility] [id number] Univers 10:30:00 10:30:00 KIRAN [id number] [facility] 2022-06-18 2022-06-18 Outpatient [facility] [id number] Univers 10:30:00 10:30:00 KIRAN [facility] 2022-05-16 2022-05-16 Refill [facility] [id number] Univers 00:00:00 00:00:00 Kiran Chowdary [facility] 350.1.13.10 it of [facility] 4.2.7.2.686 Hub[place] fay ANNIKA [id number] [place] [id number] Branch 2022-05-07 2022-05-07 Outpatient [facility] [id number] [place] 09:37:00 09:37:00 0713 [facility] 2022-05-03 2022-05-03 Outpatient [facility] PRIV PRIV [id number] [facility] 03:04:00 03:04:00 _Lotze_P [id number] Medic al 2022-04-25 2022-04-25 Outpatient [facility] PRIV PRIV [id number] [facility] 07:38:00 07:38:00 _Lotze_P [id number] Medic al 2022-04-24 2022-04-24 Outpatient [facility] PRIV PRIV [id number] [facility] 01:03:00 01:03:00 _Lotze_P [id number] Medic al 2022-04-21 2022-04-21 Outpatient Lotze, PRIV PRIV [id number] c-f 00:00:00 00:00:00 Malcolm [id number] Travis [id number] 2022-04-12 2022-04-12 Outpatient [facility] PRIV PRIV [id number] [facility] 07:52:00 07:52:00 _Lotze_P [id number] Medic al 2022-04-10 2022-04-10 Outpatient [facility] PRIV PRIV [id number] [facility] 01:18:00 01:18:00 _Lotze_P [id number] Medic al 2022-04-09 2022-04-09 Outpatient [facility] PRIV PRIV [id number] [facility] 11:29:00 11:29:00 _Lotze_P [id number] Medic al 2022-04-08 2022-04-08 Outpatient [facility] PRIV PRIV [id number] [facility] 11:25:00 11:25:00 _Lotze_P [id number] Medic al 2022-04-08 2022-04-08 Outpatient Lotze, PRIV PRIV [id number] e-e 00:00:00 00:00:00 Malcolm [id number] Travis [id number] 2022-04-07 2022-04-07 Outpatient [facility] PRIV PRIV [id number] [facility] 05:55:00 05:55:00 _Lotze_P [id number] Medic al 2022-02-12 2022-02-12 Outpatient [facility] PRIV PRIV [id number] [facility] 03:40:00 03:40:00 _Lotze_P [id number] Medic al 2022-02-11 2022-02-11 [facility] [id number] Univers 00:00:00 00:00:00 Kiran J PRIMARY 350.1.13.10 ity of [facility] 4.2.7.2.686 Huber ROBLERO [id number] Sd dical 220 Branch 2022-01-15 2022-01-15 Outpatient [facility] PRIV PRIV [id number] [facility] 02:55:00 02:55:00 _Lotze_P [id number] Medic al 2021-12-18 2021-12-18 Outpatient [facility] PRIV PRIV [id number] [facility] 04:21:00 04:21:00 _Lotze_P [id number] Medic al 2021-11-21 2021-11-21 Office KALLI Mcguire [facility] 1.2.840.114 [id number] [place] 10:00:00 11:49:53 Visit Travis [facility] 350.1.13.58 ish LUND 2 9.2.7.2.686 [id number] 2021-11-21 2021-11-21 Outpatient [facility] PRIV PRIV [id number] [facility] 06:16:00 06:16:00 _Lotze_P [id number] Medic al 2021-11-04 2021-11-04 Outpatient [facility] PRIV PRIV [id number] [facility] 05:32:00 05:32:00 _Lotze_P [id number] Medic al 2021-10-29 2021-10-29 Outpatient [facility] PRIV PRIV [id number] [facility] 04:24:00 04:24:00 _Lotze_P [id number] Medic al 2021-10-23 2021-10-23 Outpatient [facility] PRIV PRIV [id number] 02:06:00 02:06:00 _Lotze_P [id number] Medic al 2021-10-22 2021-10-22 Immunizati G125, Covid UTP 6414 1.2.840.11 4 [id number] [place] 13:30:00 13:40:00 on Vaccine - [address] 350.1.13.58 Health Pfizer 9.2.7.2.686 [id number] 3 2021-10-22 2021-10-22 Immunizati G125, Covid UTP 6414 1.2.840.11 4 [id number] [place] 13:30:00 13:40:00 on Vaccine - [address] 350.1.13.58 Health Pfizer 9.2.7.2.686 [id number] 3 2021-10-16 2021-10-16 Outpatient [facility] PRIV PRIV [id number] [facility] 03:48:00 03:48:00 _Lotze_P [id number] Medic al 2021-10-16 2021-10-16 Outpatient Lotze, PRIV PRIV [id number] c-7 00:00:00 00:00:00 Malcolm [id number] Travis [id number] [id number] 2021-10-09 2021-10-09 [facility]IV [id number] [facility] 05:30:00 05:30:00 _Lotze_P [id number] Medic al 2021-10-07 2021-10-07 [facility] PRIV [id number] [facility] 04:49:00 04:49:00 _Lotze_P [id number] Medic al 2021-10-07 2021-10-07 Outpatient Lotze, PRIV PRIV [id number] [id number] 00:00:00 00:00:00 Malcolm [id number] Travis [id number] 2021-10-03 2021-10-03 [facility] PRIV PRIV [id number] [facility] 03:07:00 03:07:00 _Lotze_P [id number] Medic al 2020-11-16 2020-11-16 [facility] 1.2.840.114 [id number] 15:00:00 23:59:00 Encounter Kiran Chowdary [place] 350.1.13.10 Anton 4.2.7.2.686 [place] [id number] 2020-11-16 2020-11-16 Orders Doctor KATHY 1.2.840.114 [id number] 00:00:00 00:00:00 Only Unassigned, JON 350.1.13.10 [place] [facility] 4.2.7.2.686 [id number] 2020-11-07 2020-11-07 Telephone [facility] [id number] [id number] 00:00:00 00:00:00 Kiran Chowdary PRIMARY 350.1.13.10 CARE 4.2.7.2.686 PAVILLION [id number] 2020-11-02 2020-11-02 Patient [facility] 1.2.840.114 [id number] 00:00:00 00:00:00 Secure Msg Kiran Chowdary PRIMARY 350.1.13.10 CARE 4.2.7.2.686 PAVILLION [id number] 2020-08-08 2020-08-08 Telemedici [facility] 1.2.840.114 [id number] 09:49:18 16:39:55 ne Visit Kiran Chowdary PRIMARY 350.1.13.10 CARE 4.2.7.2.686 ANNIKA [id number] 2020-02-14 2020-02-14 Patient Doctor [facility] 1.2.840.114 [id number] 00:00:00 00:00:00 Secure Msg Unassigned, MULTISPEC 350.1.13.10 [place] IALT 4.2.7.2.686 [place] [id number] [place] [address] [facility] 2020-02-11 2020-02-11 Refill [place], [facility] 1.2.840.114 [id number] 00:00:00 00:00:00 Souad MULTISPEC 350.1.13.10 IALTY 4.2.7.2.686 [place] [id number] [place] [address] [facility] 2020-02-07 2020-02-07 Timber Framer Helper Araceli Sheehan [facility] 1.2.840.114 [id number] 11:02:28 12:15:54 Visit Lab Main [place] 350.1.13.10 [place] 4.2.7.2.686 Professio [id number] [address] 2020-02-07 2020-02-07 Refill [place], [facility] 1.2.840.114 [id number] 00:00:00 00:00:00 Souad MULTISPEC 350.1.13.10 IAFLAVIA 4.2.7.2.686 [place] [id number] [place] [address] [facility] 2019-07-29 2019-07-29 Outpatient [facility]IE MH[facility] [id number] [facility] 11:30:00 11:30:00 07 pineda Romero 2019-06-06 2019-06-06 Outpatient [facility]IE [facility] [id number] [facility] 16:45:00 16:45:00 08 pineda Romero 2019-05-04 2019-05-04 Outpatient MHIE [facility]IE [id number] [facility] 11:15:00 11:15:00 06 pineda Romero 2019-02-03 2019-02-03 Outpatient MHIE MHIE [id number] [facility] 14:00:00 14:00:00 05 pineda Romero 2018-09-22 2018-09-22 [facility] [id number] [facility] 15:00:00 15:00:00 04 l Nick 2018-08-04 2018-08-04 [facility] [id number] [facility] 10:30:00 10:30:00 03 l Nick 2018-07-29 2018-07-29 Outpatient [facility] HER[facility] [id number] [facility] 14:45:00 14:45:00 02 l Nick 2018-06-17 2018-06-17 [facility] [id number] [facility] 15:15:00 15:15:00 01 l Nick 2018-05-04 2018-05-04 [facility]patient [facility] [id number] Memoria 13:30:00 13:30:00 00 pineda Romero Results Test Description Test Time Test Comments Results Result [facility] Comments TISSUE EXAM 2021-06-26 Surgical Pathology Report 11:39:00 Case: [id number] Authorizing Provider: Khai Blum MD Collected: 06/23/2021 08:28 AM Ordering Location: [address] Med/Surg Received: 06/24/2021 10:12 AM Pathologist: Ce Iniguez MD Specimens: A) - Small Bowel, NOS B) - Biopsy, Gastric, remnant gastric biopsy This addendum is to report Edwin Bass results. EDWIN BASS: NEGATIVE FOR H. PYLORI ORGANISMS Addendum electronically [...] TO FOLLOW Signing Pathologist Direct Phone Line: [phone] y signed by Ce Iniguez MD on 06/25/2021 at 11:15 AM/[id number] A. Small bowel NOS. B. Biopsy gastric [...] included the use of immunohistochemistry or special stains.Sheyla Stuart Slides Examined: In-house known positive controls were evaluated along with the test tissue. These control slides run alongside of the patients sample show appropriate staining. Internal positive and negative controls when available are evaluated Immunohistochemistry technical testing was performed at [facility], Pathology Laboratory where it was developed [...] qualified to perform high complexity clinical laboratory testing.[facility], Department of Pathology, [address] [place] [address], [facility], Department of Pathology, [address] [place] [address], [facility], [facility] of [facility]ology, [address] [place], [place] [address], [facility] 2021-06-25 Unlisted IMAGING, RBC 09:55:00 Reason for Exam - Click [facility] - Yes and Enter MEDICAL CENTERName: Reason THANHDELBERT GUZMAN : Below->No 1960 Sex: F FINAL REPORT PROCEDURE: HEMORRHAGE STUDY with RBCs CPT CODE: 11428 INDICATION: Gastrointestinal Bleeding PROTOCOL: 28.0 mCi of [...] MDReport Verified Date/Time: 06/25/2021 09:55:14 Reading Location: [address] Reading Room C METABOLIC PANEL 2021-06-25 06:19:00 [...] NOT 1092) ACCURATE CRE ATININE CLEARANCE IN TX EDICTING GLOMERULAR FILT RATION RATE. ESTIMATED GFR IS NOT APPLICABLE FOR DIALYSIS PATIENTS. Applications Sales Consultant ID - LITOOperator ID - LITOOperator ID - LITOOperator ID - LITOOperator ID - LITOOperator ID - LITOOperator ID - LITOOperator ID - LITOOperator ID - LITOOperator ID - [id number] 06:08:00 Test Item Value Reference Range Interpretation Comments MAGNESIUM (BEAKER) (test code = 1.9 mg/dL 1.5-3.0 627) Applications Sales Consultant ID - LITOOperator ID - LITOOperator ID - LITOOperator ID - LITOCBC W/PLT COUNT & AUTO [id number] 05:43:00 Test Item Value Reference Range Interpretation [...] 0-0 PERCENT (BEAKER) (test code = 2801) [id number] 05:20:00 Test Item Value Reference Range Interpretation Comments MAGNESIUM (BEAKER) (test code = 1.9 mg/dL 1.5-3.0 627) Applications Sales Consultant ID - [id number] ID - [id number] ID - [id number] ID - [id number] BASIC METABOLIC [id number] 05:19:00 Test Item Value Reference Range Interpretation [...] S NOT APPLICABLE FOR DIALYSIS PATIEN TS. Applications Sales Consultant ID - [id number] ID - [id number] ID - [id number] ID - SSCX23Nboveaif ID - [id number] ID - [id number] ID - [id number] ID - YEHN01Sytffkhs ID - [id number] W/PLT COUNT & AUTO [id number] 04:59:00 Test Item Value Reference Range Interpretation [...] % 0-0 PERCENT (BEAKER) (test code = 2809) VITAMIN B12 AND [id number] 07:35:00 Test Item Value Reference Range Interpretation Comments VITAMIN B12 1390 pg/mL 211-911 H (BEAKER) (test code = 774) FOLATE (BEAKER) 13.60 ng/mL See_Comment [Automated message] (test code = 362) The system which generated this result transmitted ref erence range: >=5.4. T he reference range was not used to interpr et this result as normal/abnormal . Applications Sales Consultant ID - [id number] ID - [id number], TIBC, % SAT. (WITHOUT FERRITIN)2021-06-23 07:12:00 Test Item Value Reference Range Interpretation Comments IRON (BEAKER) (test code = 547) 84.0 ug/dL 45.0-170.0 TOTAL IRON BINDING CAPACITY 341 ug/dL 250-550 (BEAKER) (test code = 769) IRON % SATURATION (2) (BEAKER) 25 % 20-55 (test code = 2590) Applications Sales Consultant ID - [id number] ID - [id number] METABOLIC [id number] 07:12:00 Test Item Value Reference Range Interpretation [...] S NOT APPLICABLE FOR DIALYSIS PATIEN TS. Applications Sales Consultant ID - [id number] ID - [id number] ID - [id number] ID - [id number] ID - PIVH21Zdicltyr ID - [id number] ID - SQCF60Ejcmxkgc ID - WACF19Alaasomj ID - GKEB41Cwalbnlp ID - [id number] 06:45:00 Test Item Value Reference Range Interpretation Comments MAGNESIUM (BEAKER) (test code = 2.0 mg/dL 1.5-3.0 627) Applications Sales Consultant ID - [id number] ID - [id number] ID - [id number] ID - [id number] C-REACTIVE [id number] 06:42:00 Test Item Value Reference Range Interpretation Comments C-REACTIVE PROTEIN (BEAKER) (test 0.02 mg/dL 0.00-0.50 code = 676) Applications Sales Consultant ID - [id number] W/PLT COUNT & AUTO [id number] 06:29:00 Test Item Value Reference Range Interpretation [...] (BEAKER) (test code = 2801) HEMOGLOBIN AND [id number] 20:22:00 Test Item Value Reference Range Interpretation Comments HEMOGLOBIN (BEAKER) (test code = 8.6 GM/DL 12.0-15.5 L 410) HEMATOCRIT (BEAKER) (test code = 26.6 % 36.0-46.0 L 411) URINALYSIS W/ REFLEX URINE [id number] 16:52:00 Test Item Value Reference Range Interpretation [...] (test code = 2795) MR, BRAIN, WITHOUT [id number] 14:05:00Outside CT head unremarkable.Unlisted Reason for Exam - Click Yes and Enter Reason Below->No [facility] : 1960 Sex: [...] cystic appearing lesions in the bilateral lateral ventricles,moderately distending the atria. The ventricles are otherwise normal in size. There is no significant reactive edema in the periventricular white matter. There is mild generalized sulcal prominence without midline shift. There are no extra-axial fluid collections. The craniocervical junction is preserved. The major intracranial flow-voids appear patent. IMPRESSION: Multilobulated, cystic appearing lesions in the bilateral lateral ventricles, possibly representing choroid plexus cysts or xanthogranulo mas. If clinically warranted, gadolinium-enhanced imaging could be performed for further evaluation.Otherwise, age concordant appearing noncontrast MRI brain. Signed: Shawn Fuenteseport Verified Date/Time: 06/22/2021 14:05:16 Reading Location: [facility] C013V Neuro Reading Room Electronically signedby: SHAWN FUENTES M.D. on 06/22/2021 02:05 PMCOMPREHENSIVE METABOLIC [id number] 09:28:00 Test Item Value Reference Range Interpretation [...] S NOT APPLICABLE FOR DIALYSIS PATIEN TS. Applications Sales Consultant ID - [id number] ID - [id number] ID - [id number] ID - [id number] ID - [id number] ID - [id number] ID - [id number] ID - [id number] ID - [id number] ID - [id number] ID - [id number] ID - [id number] ID - [id number] ID - [id number] ID - [id number] ID - [id number] ID - [id number] ID - [id number] ID - [id number] HEMOGLOBIN AND [id number] 09:10:00 Test Item Value Reference Range Interpretation Comments HEMOGLOBIN (BEAKER) (test code = 7.5 GM/DL 12.0-15.5 L 410) HEMATOCRIT (BEAKER) (test code = 23.1 % 36.0-46.0 L 411) CBC W/PLT COUNT & AUTO [id number] 05:59:00 Test Item Value Reference Range Interpretation [...] PERCENT (BEAKER) (test code = 2801) SARS-COV2/RT-PCR ([facility])2021-06-21 18:53:00 Test Item Value Reference Range Interpretation Comments SARS-COV2/RT-PCR Negative Negative The SARS-Co V-2 target (test code = nucleic acids a re not [id number]) detected in thi s specimen. Negative result [...] This SARS CoV-2 test is a rapid, real-time RT-PC R test intended for th e qualitative detection [...] Food, Drug and Cosmetic Act, 21 U.S.C. 360bbb-3(b)(1), unless the authorization is terminated or revoked sooner. Fact Sheet for Healthcare Providers: https://www.[employer] m/Documents/Xpert%20Xpress%20SARS%20CoV-2/Fact%20Sheets/302-3802%38SPAF-OGK-7%20 HEALTHCARE%20PROVIDERS%20FACT%20SHEET.pdf Fact Sheet for Healthcare Patients: https://www.[employer]/Documents/Xpert%20Xp ress%20SARS%20CoV-2/Fact%20Sheets/302-3801%50HWHG-FCG-1%20PATIENT%20FACT%20SHEET .pdfCBC W/PLT COUNT & AUTO [id number] 16:35:00 Test Item Value Reference Range Interpretation [...] PERCENT (BEAKER) (test code = 2801) TROPONIN [id number] 16:09:00 Test Item Value Reference Range Interpretation [...] failure, acidosis, acute neurological disease, and persistent tachyarrhythmia.Applications Sales Consultant ID - [id number] 16:03:00 Test Item Value Reference Range Interpretation Comments PROTIME (BEAKER) 11.1 seconds 9.3-12.0 Final Infor mation (test code = 759) (Auto Outp ut) INR (BEAKER) (test 1.00 See_Comment Final Inf ormation code = 370) (Auto Output) [Automated mess age] The system [employer] generated this result transmitted ref erence range: <=5.90. The reference range was not used to int erpret this result as normal/abnormal . RECOMMENDED COUMADIN/WARFARIN INR THERAPY RANGESSTANDARD DOSE: 2.0 - 3.0 Includes: PROPHYLAXIS for venous thrombosis, systemic embolization; TREATMENT for venous thrombosis and/or pulmonary embolus.HIGH RISK: Target INR is 2.5-3.5 for patients with mechanical heart valves.[id number] 16:03:00 Test Item Value Reference Range Interpretation Comments PARTIAL THROMBOPLASTIN 26.8 seconds 23.0-35.0 Final Information TIME (BEAKER) (test (Auto Ou tput) code = 760)
[2022-06-02 04:06] LABS: Urine Blood Negative (Negative); Urine Glucose Negative (Negative); Urine Protein Negative (Negative)
[2022-06-02] MEDS ORDERED: ONDANSETRON 4 MG/2 ML VIAL ONE (04:21)
[2022-06-02] MEDS ORDERED: MORPHINE 2 MG/ML SYR ONE ×2 (04:21→05:03)
[2022-06-02] MEDS ORDERED: NA CHLORIDE 0.9% 500 ML ONE (04:21)
[2022-06-02 04:35] LABS: Hematocrit 35.1 % (36.0-45.0); MCV 87.7 fL (80-100); RBC Red Blood Cell Count 4.01 M/uL (3.86-4.86)
[2022-06-02 04:36] LABS: Absolute Lymphocytes (CBC) 2.5 K/uL (0.7-4.9); Lymphocytes % 44.2 % (15.3-44.8); MPV 7.6 fL (7.6-11.3)
[2022-06-02 04:57] LABS: ALT/SGPT 19 U/L (12-78); AST/SGOT 21 U/L (15-37); Albumin 2.8 g/dL (3.4-5.0); Alkaline Phosphatase 52 U/L (45-117); BUN Blood Urea Nitrogen 14 mg/dL (7-18); Bicarbonate 27 mmol/L (21-32); Bilirubin Total 0.2 mg/dL (0.2-1.0); Glomerular Filtration Rate 101 ml/min (=/>90); Glucose Level 105 mg/dL (74-106); Magnesium 2.1 mg/dL (1.8-2.4); NT PRO-BNP 122 pg/mL (<125); Potassium 3.6 mmol/L (3.5-5.1); Protein, Total 6.4 g/dL (6.4-8.2); Sodium Level 141 mmol/L (136-145); Troponin High Sensitivity 5.9 pg/mL (<58.9)
[2022-06-02 05:11] LABS: Blood Morphology Comment NOT SEEN (NOT SEEN); Platelet Estimate ADEQ
[2022-06-02 05:16] LABS: Bilirubin Direct < 0.1 mg/dL (0-0.2)
[2022-06-02] MEDS ORDERED: MECLIZINE HCL 12.5 MG TAB ONE (06:04)
--- NOTE | 2022-06-02 06:42 | ER ---
Nurse's Notes [facility] Name: Lian Silveira Age: 61 yrs Sex: Female : 1960 Arrival Date: 06/02/2022 Time: 02:45 Bed 16 Private MD: Diagnosis: Fall on same level, unspecified;Contusion of back, right hip;Vertigo Presentation: 06/02 03:03 Chief complaint: Patient states: "I keep getting dizzy spells. Yesterday I got dizzy tw5 and I fell and I hit my back, my shoulders and my hip. I getting radiating pain down my back. It is really hard to walk without it being painful. I dont know if I fractured my hip.". Care prior to arrival: None. Mechanism of Injury: Fall from standing position. Trauma event details: Injury occurred in the [facility], Injury occurred: at home. 03:03 Acuity: TIMOTHY 3 tw5 03:03 Method Of Arrival: Wheelchair tw5 03:09 Coronavirus screen: Vaccine status: Patient reports receiving the 2nd dose of the covid tw5 vaccine. [employer]. Ebola Screen: Patient negative for fever greater than or equal to 101.5 degrees Fahrenheit, and additional compatible Ebola Virus Disease symptoms Patient denies exposure to infectious person. No symptoms or risks identified at this time. Initial Sepsis Screen: Does the patient meet any 2 criteria? No. Patient's initial sepsis screen is negative. Does the patient have a suspected source of infection? No. Patient's initial sepsis screen is negative. Risk Assessment: Do you want to hurt yourself or someone else? Patient reports no desire to harm self or others. Onset of symptoms is unknown. Trauma Activation: Not Applicable Physician: ED Physician; Name: ; Notified At: ; Arrived At: Physician: General Surgeon; Name: ; Notified At: ; Arrived At: Physician: Radiology; Name: ; Notified At: ; Arrived At: Physician: Respiratory; Name: ; Notified At: ; Arrived At: Physician: Lab; Name: ; Notified At: ; Arrived At: Historical: - Allergies: 03:10 No Known Allergies; tw5 - PMHx: 03:10 bleeding ulcer; Chronic migraines; Paroxysmal Atrial Fibrillation; PTSD; tw5 - PSHx: 03:10 bariatric surgery; tw5 - Immunization history: Last tetanus immunization: unknown. - Social history:: Smoking status: Patient denies any tobacco usage or history of. Screenin:03 Abuse screen: Denies threats or abuse. Denies injuries from another. Tuberculosis tw5 screening: No symptoms or risk factors identified. 03:11 Nutritional screening: No deficits noted. Fall Risk None identified. tw5 Primary Survey: 03:03 NO uncontrolled hemorrhage observed. A: The client is awake and alert. The airway is tw5 patent. Breathing/Chest: Spontaneous respiratory effort, equal unlabored respirations, breath sounds clear bilaterally, regular pattern, symmetrical chest rise and fall. Circulation: No external hemorrhage present. Regular and strong central pulse, skin warm/dry/normal color. Disability Pupils are equal, round, reactive to light and accommodation. Exposure/Environment: There is no evidence of uncontrolled external bleeding. Reassessment Alertness and Airway: Awake and alert. The airway is patent. Breathing: Spontaneous respiratory effort, equal unlabored respirations, breath sounds clear bilaterally, regular pattern with symmetrical chest rise and fall. Circulation: No external hemorrhage noted. Regular and strong central pulse, skin warm/dry/normal color. Disability: Pupils Pupils are equal, round, reactive to light and accomodation. Secondary Survey: 03:03 Musculoskeletal: No deficits noted. tw5 Assessment: 03:03 General: Appears in no apparent distress. uncomfortable, Behavior is calm, cooperative, tw5 appropriate for age. Pain: Complains of pain in base of the skull, back, right hip, lateral aspect of right thigh, lateral aspect of right knee, right hamstring and posterior aspect of right knee Pain currently is 9 out of 10 on a pain scale. Respiratory: No deficits noted. GI: No deficits noted. 04:20 Reassessment: Patient appears in no apparent distress at this time. No changes from tw5 previously documented assessment. Patient and/or family updated on plan of care and expected duration. Pain level reassessed. Patient is alert, oriented x 3, equal unlabored respirations, skin warm/dry/pink. Pain: Pain currently is 9 out of 10 on a pain scale. 04:58 Reassessment: Patient appears in no apparent distress at this time. No changes from tw5 previously documented assessment. Patient and/or family updated on plan of care and expected duration. Pain level reassessed. Patient is alert, oriented x 3, equal unlabored respirations, skin warm/dry/pink. 06:01 Reassessment: Patient states feeling better. Patient states symptoms have improved. tw5 Vital Signs: 03:03 BP 135 / 79; Pulse 63; Resp 18; Temp 98; Pulse Ox 99% ; Weight 63.5 kg; Height 5 ft. 0 tw5 in. (152.40 cm); Pain 9/10; 04:20 BP 157 / 93; Pulse 57; Resp 18; Pulse Ox 99% on R/A; Pain 9/10; tw5 04:58 Pulse 55; Resp 14; Pulse Ox 99% ; tw5 06:00 Pain 8/10; tw5 06:01 BP 119 / 73; Pulse 66; Resp 18; Pulse Ox 99% ; Pain 6/10; tw5 03:03 Body Mass Index 27.34 (63.50 kg, 152.40 cm) tw5 Wayne Coma Score: 06:55 Eye Response: spontaneous(4). Verbal Response: oriented(5). Motor Response: obeys as6 commands(6). Total: 15. Trauma Score (Adult): 06:55 Eye Response: spontaneous(1); Verbal Response: oriented(1); Motor Response: obeys as6 commands(2); Systolic BP: > 89 mm Hg(4); Respiratory Rate: 10 to 29 per min(4); Ginette Score: 15; Trauma Score: 12 ED Course: 02:45 Patient arrived in ED. bp1 02:47 Awais Collins RN is Primary Nurse. as6 03:00 Primary Nurse role handed off by Awais Collins RN tw5 03:00 Shauna Padilla is Primary Nurse. tw5 03:00 Salvador Gonzalez MD is Attending Physician. mh7 03:03 Patient has correct armband on for positive identification. Placed in gown. Bed in low tw5 position. Call light in reach. 03:03 Patient maintains SpO2 saturation greater than 95% on room air. tw5 03:05 Triage completed. tw5 03:10 Patient placed in an exam room. tw5 03:11 Door closed. Noise minimized. Lights dimmed. Warm blanket given. Verbal reassurance tw5 given. 04:20 Initial lab(s) drawn, by me, sent to lab. EKG done, by ED staff, reviewed by Salvador Gonzalez MD. Inserted saline lock: 20 gauge in left forearm, using aseptic technique. Blood collected. started by awais moore. 04:22 Basic Metabolic Panel Sent. tw5 04:22 CBC with Diff Sent. tw5 04:22 LFT's Sent. tw5 04:22 Magnesium Sent. tw5 04:22 NT PRO-BNP Sent. tw5 04:22 PT-INR Sent. tw5 04:22 Troponin HS Sent. tw5 04:45 XRAY Chest (1 view) In Process Unspecified. EDMS 04:46 Pelvis XRAY In Process Unspecified. EDMS 04:46 Hip Right 2 View XRAY In Process Unspecified. EDMS 04:58 Pulse ox on. NIBP on. tw5 04:59 Head C Spine Mpr Wo Con In Process Unspecified. EDMS 04:59 CT Thoracic Spine Wo Cont In Process Unspecified. EDMS 05:00 Spine Lumbar Wo Con In Process Unspecified. EDMS 06:55 No provider procedures requiring assistance completed. IV discontinued, intact, as6 bleeding controlled, No redness/swelling at site. Pressure dressing applied. 06:55 Thermoregulation: warm blanket given to patient. as6 Administered Medications: 04:21 Drug: NS 0.9% 500 ml Route: IV; Rate: bolus; Site: left forearm; tw 06:43 Follow up: Response: No adverse reaction; IV Status: Completed infusion; IV Intake: as6 500ml 04:21 Drug: morphine 2 mg Route: IVP; Infused Over: 4 mins; Site: left forearm; tw 04:58 Follow up: Response: Adverse reaction, Physician notified; Pain is unchanged, physician tw5 notified; RASS: Alert and Calm (0) 04:21 Drug: Zofran (Ondansetron) 4 mg Route: IVP; Site: left forearm; tw5 04:58 Follow up: Response: No adverse reaction tw5 04:57 Drug: morphine 2 mg Route: IVP; Infused Over: 4 mins; Site: left forearm; tw5 06:00 Follow up: Pain 8/10 Adult; Response: No adverse reaction; Pain is decreased; RASS: tw5 Alert and Calm (0) 06:00 Drug: Meclizine 25 mg Route: PO; tw 06:43 Follow up: Response: No adverse reaction as6 Medication: 03:11 VIS not applicable for this client. tw5 Intake: 06:43 IV: 500ml; Total: 500ml. as6 06:55 IV: 500ml (IV Fluid); Total: 1000ml. as6 Outcome: 06:41 Discharge ordered by . [email or web address] 06:55 Discharged to home via wheelchair. as6 06:55 Condition: stable 06:55 Discharge instructions given to patient, Instructed on discharge instructions, follow up and referral plans. medication usage, Demonstrated understanding of instructions, follow-up care, medications, Prescriptions given X 2. 06:55 Patient's length of stay in the Emergency Department was greater than 2 hours. pending as6 providerPatient's length of stay extended due to 06:56 Patient left the ED. as6 Signatures: Dispatcher [employer] EDMS Mere Hardy Maurice, MD MD 7 Shauna Padilla tw5 Awais Collins, RN RN as6
--- NOTE | 2022-06-02 06:43 | EDPHYS ---
Physician Documentation [facility] Name: Lian Silveira Age: 61 yrs Sex: Female : 1960 Arrival Date: 06/02/2022 Time: 02:45 Bed 16 Private MD: ED Physician Salvador Gonzalez HPI: 06/02 04:00 This 61 yrs old Female presents to ER via Wheelchair with complaints of Fall mh7 Injury. 04:00 Details of fall: The patient fell from an upright position, while walking. mh7 04:00 Onset: The symptoms/episode began/occurred yesterday. mh7 04:00 Associated injuries: The patient sustained neck injury, pain, upper back injury, pain, mh7 pain with movement, injury to the low back, pain, pain with movement, right hip, painful injury. Severity of symptoms: At their worst the symptoms were moderate, last night, in the emergency department the symptoms are unchanged. Patient reports having dizziness with spinning sensation intermittently for the past the months after having a concussion. States that she had an episode yesterday and fell hitting her back and right hip. She denies any head trauma or LOC. Denies any chest pain, SOB, abdominal pain, nausea, vomiting, numbness/tingling, or weakness before or after falling.. Historical: - Allergies: 03:10 No Known Allergies; tw5 - PMHx: 03:10 bleeding ulcer; Chronic migraines; Paroxysmal Atrial Fibrillation; PTSD; tw5 - PSHx: 03:10 bariatric surgery; tw5 - Immunization history: Last tetanus immunization: unknown. - Social history:: Smoking status: Patient denies any tobacco usage or history of. ROS: 04:00 Constitutional: Negative for fever, chills, and weight loss, Eyes: Negative for injury, mh7 pain, redness, and discharge, ENT: Negative for injury, pain, and discharge, Cardiovascular: Negative for chest pain, palpitations, and edema, Respiratory: Negative for shortness of breath, cough, wheezing, and pleuritic chest pain, Abdomen/GI: Negative for abdominal pain, nausea, vomiting, diarrhea, and constipation, : Negative for injury, bleeding, discharge, and swelling, Skin: Negative for injury, rash, and discoloration, Neuro: Negative for headache, weakness, numbness, tingling, and seizure, Psych: Negative for depression, anxiety, suicide ideation, homicidal ideation, and hallucinations, Allergy/Immunology: Negative for hives, rash, and allergies, Endocrine: Negative for neck swelling, polydipsia, polyuria, polyphagia, and marked weight changes, Hematologic/Lymphatic: Negative for swollen nodes, abnormal bleeding, and unusual bruising. Exam: 04:00 Head/Face: Normocephalic, atraumatic. Eyes: Pupils equal round and reactive to light, mh7 extra-ocular motions intact. Lids and lashes normal. Conjunctiva and sclera are non-icteric and not injected. Cornea within normal limits. Periorbital areas with no swelling, redness, or edema. Neck: Trachea midline, no thyromegaly or masses palpated, and no cervical lymphadenopathy. Supple, full range of motion without nuchal rigidity, or vertebral point tenderness. No Meningismus. Chest/axilla: Normal chest wall appearance and motion. Nontender with no deformity. No lesions are appreciated. Cardiovascular: Regular rate and rhythm with a normal S1 and S2. No gallops, murmurs, or rubs. Normal PMI, no JVD. No pulse deficits. Respiratory: Lungs have equal breath sounds bilaterally, clear to auscultation and percussion. No rales, rhonchi or wheezes noted. No increased work of breathing, no retractions or nasal flaring. Abdomen/GI: Soft, non-tender, with normal bowel sounds. No distension or tympany. No guarding or rebound. No evidence of tenderness throughout. 04:00 Skin: Warm, dry with normal turgor. Normal color with no rashes, no lesions, and no evidence of cellulitis. 04:00 Psych: Awake, alert, with orientation to person, place and time. Behavior, mood, and affect are within normal limits. 04:00 Constitutional: The patient appears in no acute distress, alert, awake, uncomfortable. 04:00 Back: pain, that is moderate, of the thoracic area and lumbar area, normal spinal alignment noted, CVA tenderness, is absent, vertebral tenderness, is not appreciated, muscle spasm, is not present. 04:00 Musculoskeletal/extremity: Extremities: noted in the right hip: pain, tenderness, ROM: limited active range of motion due to pain, in the right hip, limited passive range of motion due to pain, in the right hip, Circulation is intact in all extremities. Sensation intact. Compartment Syndrome exam of affected extremity: is normal. no numbness, no tingling, no sensation deficit, no palor, no weak pulses, Joints: the right hip displays painful range of motion, tenderness, Weight bearing: able to fully bear weight. 04:00 Neuro: Orientation: is normal, Mentation: is normal, Memory: is normal, Cranial nerves: grossly normal, Cerebellar function: is grossly normal, Motor: is normal, Sensation: is normal, Gait: not tested. seizure activity, is not displayed by the patient, Abnormal movements: there are no abnormal movements. Vital Signs: 03:03 BP 135 / 79; Pulse 63; Resp 18; Temp 98; Pulse Ox 99% ; Weight 63.5 kg; Height 5 ft. 0 tw5 in. (152.40 cm); Pain 9/10; 04:20 BP 157 / 93; Pulse 57; Resp 18; Pulse Ox 99% on R/A; Pain 9/10; tw5 04:58 Pulse 55; Resp 14; Pulse Ox 99% ; tw5 06:00 Pain 8/10; tw5 06:01 BP 119 / 73; Pulse 66; Resp 18; Pulse Ox 99% ; Pain 6/10; tw5 03:03 Body Mass Index 27.34 (63.50 kg, 152.40 cm) tw5 [place] Coma Score: 06:55 Eye Response: spontaneous(4). Verbal Response: oriented(5). Motor Response: obeys as6 commands(6). Total: 15. Trauma Score (Adult): 06:55 Eye Response: spontaneous(1); Verbal Response: oriented(1); Motor Response: obeys as6 commands(2); Systolic BP: > 89 mm Hg(4); Respiratory Rate: 10 to 29 per min(4); Ginette Score: 15; Trauma Score: 12 MDM: 06:38 Differential diagnosis: abrasion, closed head injury, contusion, fracture, sprain. Data [facility] reviewed: vital signs, nurses notes, lab test result(s), cardiac enzymes, CBC, electrolytes, EKG, radiologic studies, CT scan, plain films. Data interpreted: Pulse oximetry: on room air is 99 %. Interpretation: normal. Counseling: I had a detailed discussion with the patient and/or guardian regarding: the historical points, exam findings, and any diagnostic results supporting the discharge/admit diagnosis, lab results, radiology results, the need for outpatient follow up, an ENT specialist, a orthopedic surgeon, to return to the emergency department if symptoms worsen or persist or if there are any questions or concerns that arise at home. Response to treatment: the patient's symptoms have resolved after treatment, the patient's blood pressure is in an acceptable range, mental status has returned to baseline, the patient no longer shows bradycardia, the patient is not short of breath, the patient is not tachycardic, the patient's pain is gone, the patient's temperature has normalized. 06:41 Patient medically screened. 06/02 03:38 Order name: Basic Metabolic Panel; Complete Time: 05:21 [facility] 06/02 03:38 Order name: CBC with Diff; Complete Time: 05:21 06/02 03:38 Order name: LFT's; Complete Time: 05:21 [facility] 06/02 03:38 Order name: Magnesium; Complete Time: 05:21 [facility] 06/02 03:38 Order name: NT PRO-BNP; Complete Time: 05:21 [facility] 06/02 03:38 Order name: PT-INR; Complete Time: 05:21 [facility] 06/02 03:38 Order name: Troponin HS; Complete Time: 05:21 [facility] 06/02 03:38 Order name: XRAY Chest (1 view) 06/02 04:06 Order name: Hip Right 2 View XRAY [facility] 06/02 04:06 Order name: Pelvis XRAY [facility] 06/02 04:06 Order name: CT Head C Spine 06/02 04:06 Order name: CT Thoracic Spine Wo Cont [facility] 06/02 04:06 Order name: Urine Dipstick-Ancillary; Complete Time: 05:21 EDMS 06/02 04:40 Order name: Manual Differential; Complete Time: 05:21 EDMS 06/02 03:38 Order name: EKG; Complete Time: 03:41 06/02 03:38 Order name: Cardiac monitoring; Complete Time: 04:22 [facility] 06/02 03:38 Order name: EKG - Nurse/Tech; Complete Time: 04:22 [facility] 06/02 03:38 Order name: IV Saline Lock; Complete Time: 04:22 mh06/02 03:38 Order name: Labs collected and sent; Complete Time: 04:22 06/02 03:38 Order name: O2 Per Protocol; Complete Time: 04: 06/02 03:38 Order name: O2 Sat Monitoring; Complete Time: 04:22 06/02 03:38 Order name: Urine Dipstick-Ancillary (obtain specimen); Complete Time: 04:10 [facility] 06/02 04:06 Order name: CT Lumbar Spine Wo Con mh7 06/02 04:13 Order name: Head C Spine Mpr Wo Con EDMS 06/02 04:17 Order name: Spine Lumbar Wo Con EDMS Administered Medications: 04:21 Drug: NS 0.9% 500 ml Route: IV; Rate: bolus; Site: left forearm; tw5 06:43 Follow up: Response: No adverse reaction; IV Status: Completed infusion; IV Intake: as6 500ml 04:21 Drug: morphine 2 mg Route: IVP; Infused Over: 4 mins; Site: left forearm; tw5 04:58 Follow up: Response: Adverse reaction, Physician notified; Pain is unchanged, physician tw5 notified; RASS: Alert and Calm (0) 04:21 Drug: Zofran (Ondansetron) 4 mg Route: IVP; Site: left forearm; tw5 04:58 Follow up: Response: No adverse reaction tw5 04:57 Drug: morphine 2 mg Route: IVP; Infused Over: 4 mins; Site: left forearm; tw5 06:00 Follow up: Pain 8/10 Adult; Response: No adverse reaction; Pain is decreased; RASS: tw5 Alert and Calm (0) 06:00 Drug: Meclizine 25 mg Route: PO; tw5 06:43 Follow up: Response: No adverse reaction as6 Disposition Summary: 06/02/22 06:41 Discharge Ordered Location: Home mh7 Problem: new mh7 Symptoms: have improved mh7 Condition: Stable mh7 Diagnosis - Fall on same level, unspecified mh7 - Contusion of back, right hip mh7 - Vertigo mh7 Followup: mh7 - With: Private Physician - When: 1 - 2 days - Reason: Worsening of condition, Recheck today's complaints, Continuance of care, Re-evaluation by your physician Discharge Instructions: - Discharge Summary Sheet mh7 - Contusion, [id number] mh7 - Fall Prevention in the Home, Adult, [id number] [facility] - Vertigo, [id number] [facility] Forms: - Medication Reconciliation Form [facility] - Thank You Letter [facility] - Antibiotic Education [facility] - Prescription Opioid Use [facility] Prescriptions: - Meclizine 25 mg Oral Tablet - take 1 tablet by ORAL route every 8 hours As needed; 30 tablet; Refills: 0, [facility] Product Selection Permitted - Diclofenac Sodium 75 mg Oral tablet,delayed release (DR/EC) - take 1 tablet by ORAL route 2 times per day As needed; 12 tablet; Refills: 0, [facility] Product Selection Permitted Signatures: Dispatcher [employer] EDMS Salvador Gonzalez MD MD [facility] Shauna Padilla [facility] Awais Collins RN as6 Corrections: (The following items were deleted from the chart) 05:36 04:00 Patient reports having dizziness intermittently for the past the months after [facility] having a concussion. States that she had an episode yesterday and fell hitting her back and right hip. She denies any head trauma or LOC. Denies any chest pain, SOB, abdominal pain, nausea, vomiting, numbness/tingling, or weakness before or after falling.. [facility]
[2022-06-02 08:08] VITALS: TEMP 98; O2SAT 99
[2022-06-02 08:17] VITALS: BP 119/73
--- NOTE | 2022-06-02 13:43 | EKG ---
Test Date: 2022-06-02 Test Time: 04:22:09 Piano Builder: MEASUREMENT RESULTS: Intervals: Rate: 57 MN: 186 QRSD: 90 QT: 404 QTc: 393 [place]: P: 52 MN: 186 QRS: 30 T: 42 INTERPRETIVE STATEMENTS: Sinus bradycardia Otherwise normal ECG Compared to ECG 01/28/2022 09:18:58 Sinus rhythm no longer present Atrial premature complex(es) no longer present Electronically Signed On 06-02-22 13:42:49 CDT by Elan Medina
--- NOTE | 2022-06-02 14:53 | RAD REPORT ---
EXAM DESCRIPTION: RAD - Chest Single View - 06/02/2022 4:43 am CLINICAL HISTORY: 61 years Female, dizziness COMPARISON: Prior chest x-ray report from 01/28/2022. The image was unavailable for review TECHNIQUE: Single portable x-ray view of the chest performed on 06/02/2022 at 4:28 AM FINDINGS: The lungs are well expanded and are clear. There is no evidence of a pneumothorax. The cardiac silhouette is normal in size and configuration. The mediastinal contours are normal. No acute osseous abnormality is identified. There are partially imaged postsurgical changes of the th oracolumbar spine No acute soft tissue abnormalities are seen. There are surgical clips in the left upper quadrant. Lines and tubes: None. Free air: None IMPRESSION: No evidence of acute intrathoracic disease. Electronically signed by: Dixie Pacheco DO 06/02/2022 5:00 AM CDT Due to temporary technical issues with the PACS/Fluency reporting system, reports are being signed by the in house radiologists without review as a courtesy to insure prompt reporting. The interpreting radiologist is fully responsible for the content of the report.
--- NOTE | 2022-06-02 15:00 | RAD REPORT ---
EXAM DESCRIPTION: RAD - Pelvis - 06/02/2022 4:44 am CLINICAL HISTORY: 61 years Female Fall TECHNIQUE: One x-ray view of the pelvis was performed on 06/02/2022 at 4:32 AM. COMPARISON: None FINDINGS: There is no evidence of fracture or dislocation. There are degenerative changes of the lum bosacral junction. There are partially imaged postsurgical changes of the lumbar spine assistance wit h posterior fusion. No definite hardware failure is identified. No focal lytic or sclerotic bone lesi ons are seen. Bone mineralization is normal. No acute soft tissue abnormalities are identified. IMPRESSION: No evidence of acute osseous injury. There are degenerative changes of the lumbosacral j unction and partially imaged postsurgical changes of the lumbar spine. Electronically signed by: Dixie Pacheco DO 06/02/2022 5:02 AM CDT Due to temporary technical issues with the PACS/Fluency reporting system, reports are being signed by the in house radiologists without review as a courtesy to insure prompt reporting. The interpreting radiologist is fully responsible for the content of the report.
--- NOTE | 2022-06-02 15:03 | RAD REPORT ---
EXAM DESCRIPTION: RAD - Hip Right 2 View - 06/02/2022 4:44 am CLINICAL HISTORY: 61 years Female Fall TECHNIQUE: 2 x-ray views of the right hip were performed on 06/02/2022 at 4:33 AM. COMPARISON: None FINDINGS: There is no evidence of fracture or dislocation. There are degenerative changes of the lum bosacral junction. There are partially imaged postsurgical changes of the lumbar spine.. No focal lyt ic or sclerotic bone lesions are seen. Bone mineralization is normal. No acute soft tissue abnormalities are identified. IMPRESSION: No evidence of acute osseous injury involving the right hip. There are degenerative rbyan ges of the lumbosacral junction and partially imaged postsurgical changes of the lower lumbar spine. Electronically signed by: Dixie Pacheco DO 06/02/2022 4:58 AM CDT Due to temporary technical issues with the PACS/Fluency reporting system, reports are being signed by the in house radiologists without review as a courtesy to insure prompt reporting. The interpreting radiologist is fully responsible for the content of the report.
--- NOTE | 2022-06-02 15:19 | RAD REPORT ---
EXAM DESCRIPTION: CT - Thoracic Spine W/o Cont - 06/02/2022 6:50 am CLINICAL HISTORY: 61 years Female Back trauma. TECHNIQUE: Multiple high-resolution thin axial CT images were performed through the thoracic spine f ollowed by sagittal and coronal reconstructed images. The CT study is performed according to ALARA (a s low as reasonably achievable) or ALARA/IMAGE GENTLY, with automatic adjustment of mA and/or kV acco rding to patient size. Performed on: 06/02/2022 at 4: 34 AM COMPARISON: CT cervical spine performed on 03/17/2022 FINDINGS: The thoracic vertebrae are normal in height. There is normal alignment of the vertebrae. The disc spaces are well preserved in height. Bone mineralization is normal. There are partiall y imaged postsurgical changes of the lower thoracolumbar spine. The visualized indwelling hardware ap pears intact without evidence to suggest hardware failure. There is degenerative disc disease at the C5-C6 level with associated bilateral neural foraminal stenosis worse on the right. There is normal alignment of the facet joints on the parasagittal images. There are minimal degenerat dayanara changes of the thoracic spine. There is no evidence of acute fracture or subluxation. There is no significant canal stenosis. Th ere is no significant neural foraminal stenosis. The paravertebral and paraspinal soft tissues are unremarkable. There are remote postsurgical changes of the stomach. There is bibasilar dependent atelectasis. IMPRESSION: 1. No evidence of acute osseous injury involving the thoracic spine. 2. Partially imaged postsurgical changes of the lower thoracolumbar spine. The visualized indwellin g hardware appears intact without evidence to suggest hardware failure. 3. Minimal degenerative changes of the thoracic spine. 4. Degenerative disc disease at C5-C6 with associated bilateral neural foraminal stenosis worse on the right. Electronically signed by: Dixie Pacheco DO 06/02/2022 5:26 AM CDT Due to temporary technical issues with the PACS/Fluency reporting system, reports are being signed by the in house radiologists without review as a courtesy to insure prompt reporting. The interpreting radiologist is fully responsible for the content of the report.
--- NOTE | 2022-06-02 15:26 | RAD REPORT ---
EXAM DESCRIPTION: CT - Spine Lumbar Wo Con - 06/02/2022 6:49 am CLINICAL HISTORY: The patient is 61 years old and is Female; Low back pain, trauma TECHNIQUE: Axial computed tomography images of the lumbar spine without intravenous contrast. Sagi ttal and coronal reformatted images were created and reviewed. This CT exam was performed using one or more of the following dose reduction techniques: automated exposure control, adjustment of the mA and/or kV according to patient size, and/or use of iterative reconstruction technique. COMPARISON: No relevant prior studies available. FINDINGS: Limitations: Evaluation limited by metal streak artifact. Vertebrae: Old L2 compression fracture with 7 mm retropulsion and mild central canal stenosis. No acute fracture visualized. 5 mm anterolisthesis L3 on L4. Bilateral pedicle screws at T11-L1, L3 and L4. Discs/spinal canal/neural foramina: Severe degenerative disc disease L5-S1 with broad-based disc protrusion, largest rightward, with right neural foraminal narrowing. Soft tissues: Unremarkable. IMPRESSION: 1. Evaluation limited by metal streak artifact. Postoperative changes as above. 2. Old L2 compression fracture with 7 mm retropulsion and mild central canal stenosis. No acute fra cture visualized. 3. 5 mm anterolisthesis L3 on L4. 4. Severe degenerative disc disease L5-S1 with broad-based disc protrusion, largest rightward, with right neural foraminal narrowing. Electronically signed by: Emily Sanchez MD 06/02/2022 5:31 AM CDT Due to temporary technical issues with the PACS/Fluency reporting system, reports are being signed by the in house radiologists without review as a courtesy to insure prompt reporting. The interpreting radiologist is fully responsible for the content of the report.
--- NOTE | 2022-06-02 15:31 | RAD REPORT ---
EXAM DESCRIPTION: CT - CTHCSPWOC - 06/02/2022 6:49 am CLINICAL HISTORY: The patient is 61 years old and is Female; trauma TECHNIQUE: Axial computed tomography images of the head/brain and cervical spine without intravenous contrast. Sagittal and coronal reformatted images were created and reviewed. This CT exam was pe rformed using one or more of the following dose reduction techniques: automated exposure control, a djustment of the mA and/or kV according to patient size, and/or use of iterative reconstruction techn ique. COMPARISON: March 17, 2022. FINDINGS: Brain: Unremarkable. No hemorrhage. No significant white matter disease. No edema. Ventricles: Unremarkable. No ventriculomegaly. Skull: Degenerative changes in the bilateral TMJs. Sinuses: Left maxillary sinus mucosal thickening. Mastoid air cells: Unremarkable as visualized. No significant mastoid fluid. Vertebrae: No acute cervical spine fracture visualized. Degenerative facet arthropathy, greatest at C4-5. Normal lateral alignment. Discs/spinal canal/neural foramina: C5-6 degenerative disc disease with disc osteophyte complex a nd mild central canal stenosis. Other bones/joints: No acute skull fracture. Soft tissues: Unremarkable. Pleural space: No apical pneumothorax. IMPRESSION: 1. No intracranial hemorrhage. No acute skull fracture. 2. No acute cervical spine fracture visualized. 3. C5-6 degenerative disc disease with disc osteophyte complex and mild central canal stenosis. Electronically signed by: Emily Sanchez MD 06/02/2022 5:26 AM CDT Due to temporary technical issues with the PACS/Fluency reporting system, reports are being signed by the in house radiologists without review as a courtesy to insure prompt reporting. The interpreting radiologist is fully responsible for the content of the report.
== END 2022-06-02 06:56 | disposition home or self-care (01) ==
LOC: ER 02:43
DX: S30.0XXA Contusion of lower back and pelvis, initial encounter (principal); S70.01XA Contusion of right hip, initial encounter; W18.30XA Fall on same level, unspecified, initial encounter
CPT/HCPCS: 93005; 85025; 80048; 36415; 83735; 85610; 80076; 81003; 84484; 83880; 72131; 70450; 72125; 72128; 71045; 72170; 73502; J8597; J2270 ×2; J7040; J2405; 96361; 96374; 96375; 99285

== ENCOUNTER 2022-06-05 19:36 | Emergency (ER) | payer OTHER ==
--- OUTSIDE RECORDS SUMMARY | 2022-06-05 19:41 | XMS REPORT | Continuity of Care Document ---
:1960 Author Organization [facility] t Address [address] [place] [address] Care Team Providers Name Role Phone Angeline Santos Primary Care Physician [phone] TRAVIS MCGUIRE Attending Clinician Unavailable CHRISTOPHER LIOMN Attending Clinician Unavailable KIRAN PRABHAKAR Attending Clinician Unavailable LUKAS_DARIUSZ_Lotze_P Attending Clinician Unavailable Kiran Prabhakar MD Attending Clinician RICHARD Attending Clinician Unavailable Malcolm Sharma Attending Clinician [phone], Covid Vaccine - Pfizer Attending Clinician Unavailable Doctor Unassigned, [place] Attending Clinician Unavailable Syd Peng Attending Clinician Pob, [facility] Main Attending Clinician Unavailable CHRISTOPHER LIMON Admitting Clinician Unavailable RAUL_Lotze_P Admitting Clinician Unavailable RICHARD Admitting Clinician Unavailable Payers Payer Name Policy Type Policy Number Effective Date Expiration Date S alan AETNA MEDICARE PPO [id number] 2019 2021 00:00:00 00:00:00 MEDICARE PART A AND [id number] 2014 B 00:00:00 AETNA MEDICARE HMO [id number] 2019 POS 00:00:00 AETNA MEDICARE OUT [id number] 2019 OF NETWORK 00:00:00 [place]IC[place] B-[place]: [id number] 2014 NOVQuantason 00:00:00 AETNA (MEDICARE [id number] 2019 REPLACEMENT PPO) 00:00:00 Problems Condition Condition Condition Status Onset Resolution Last Treating Co mments Source Name Details Category Date Date Treatment Clinician Date Fatigue Fatigue Disease Active Univers 1-25 ity of 00:00: [place] [facility] Polyuria Polyuria Disease Active Unive rs 7-30 ity of 00:00: [place] [facility] Salivary Salivary Disease Recurre Univ ers calculus calculus nce 7- ity of 00:00: [place] [facility] Prediabete Prediabete Disease Active U [...] different from the original. ICD10 Diagnosis Term Color Room Attendant Utility Hypothyroi Hypothyroi Disease Active U nivers dism dism 1-30 ity of 00:00: [place] 00 [facility] Piriformis Piriformis Disease Active U nivers syndrome syndrome ity of [facility] Branch Allergies, Adverse Reactions, Alerts Allergy Allergy Status Severity Reaction(s) Onset Inactive Treating Comm ents Source Name Type Date Date Clinician NO KNOWN Drug Active Univers ALLERGIE Class ity of S [facility] [place] [facility] NO KNOWN Allergy Active [facility] Social History Social Habit Start Date Stop Date Quantity Comments Source History SDOH University o f Alcohol Frequency [facility] edical Branch History SDOH University o f Alcohol Std Drinks [place] [facility] History SDWA University o f Alcohol Binge [facility] [place] Branch Alcohol intake 2021-12-16 2021-12-16 Ex-drinker [place] [facility] 00:00:00 00:00:00 (finding) Cigarettes smoked 2011-04-23 2011-04-23 Univers ity of current (pack per 00:00:00 00:00:00 [facility] ) - Reported Branch Cigarette 2011-04-23 2011-04-23 University of pack-years 00:00:00 00:00:00 [facility] [place] [facility] Tobacco use and 2011-04-23 2011-04-23 Former smokeless Uni versity of exposure 00:00:00 00:00:00 [facility] Alcohol Comment 2011-04-23 2011-04-23 socially, 1x Univers ity of 00:00:00 00:00:00 month [facility] [place] [facility] History of tobacco 2010-11-23 User of Univer sity of use 00:00:00 smokeless [facility] Sex Assigned At [birth year] [place] [facility] 00:00:00 00:00:00 Smoking Status Start Date Stop Date Source Tobacco smoking [facility] consumption unknown Never smoked tobacco [facility] Ex-smoker 2011-04-23 00:00:00 2011-04-23 University o f [place] 00:00:00 [facility] Medications Ordered Filled Start Stop Current Ordering Indication Dosage Frequency Signature Comments Components Source Medication Medication Date Date Medication? Clinician (SIG) Name Name levothyroxi Yes [id number] TAKE 1 Univers ne 7-22 TABLET BY ity of (SYNTHROID) 00:00: MOUTH [place] 112 mcg 00 EVERY DAY Medical tablet IN THE Branch MORNING levothyroxi Yes [id number] TAKE 1 Univers ne 7-22 TABLET BY ity of (SYNTHROID) 00:00: MOUTH [place] 112 mcg 00 EVERY DAY Medical tablet IN THE Branch MORNING NORDITROPIN Yes [id number] INJECT Univers FLEXPRO 5 3-09 0.6MG INTO ity of mg/1.5 mL 00:00: THE SKIN [place] (3.3 mg/mL) 00 DAILY Medical solution Branch NORDITROPIN Yes [id number] INJECT Univers FLEXPRO 5 3-09 0.6MG INTO ity of mg/1.5 mL 00:00: THE [place]IN [place] (3.3 mg/mL) 00 DAILY Medical solution Branch NORDITROPIN Yes [id number] INJECT Univers FLEXPRO 5 3-09 0.6MG INTO ity of mg/1.5 mL 00:00: THE [place]IN [place] (3.3 mg/mL) 00 DAILY Medical solution [place] pantoprazol 2022- No [id number] 40mg Take 1 [place] e 127 - tablet (40 Health (Protonix) 00:00: 05:59 mg total) 40 MG EC 00 :00 by mouth 1 tablet (one) time each day before breakfast. Do not crush, chew, or split. levothyroxi Yes [id number] 112ug Take 1 Univers ne 1-20 tablet by ity of (SYNTHROID) 00:00: mouth [place] 112 mcg 00 every Medical tablet morning. [place] levothyroxi 2021- No [id number] 112ug Take 1 Univers ne 1-20 07-22 tablet by ity of (SYNTHROID) 00:00: 00:00 [place] 112 mcg 00 :00 every Medical tablet morning. [place] liothyronin 2020-10 Yes [id number] TAKE 2 Univers e 5 mcg 1-08 TABLETS BY ity of tablet 00:00: MOUTH AT [place] 00 9AM, 2 Medical TABLETS AT [place] 12PM, AND 1 TABLET IN THE EVENING liothyronin 2020-10 Yes [id number] TAKE 2 Univers e 5 mcg 1-08 TABLETS BY ity of tablet 00:00: MOUTH AT [place] 00 9AM, 2 Medical TABLETS AT [place] 12PM, AND 1 TABLET IN THE EVENING liothyronin 2020-10 Yes [id number] TAKE 2 Univers e 5 mcg 1-08 TABLETS BY ity of tablet 00:00: MOUTH AT [place] 00 9AM, 2 Medical TABLETS AT [place] 12PM, AND 1 TABLET IN THE EVENING Cholecalcif Yes [id number] Take 1 Univers sammy, 9-10 capsule by ity of Vitamin D3, 00:00: mouth [place] (D3-50 00 weekly. Medical CHOLECALCIF Branch SAMMY) 1,250 mcg (50,000 unit) capsule Cholecalcif Yes [id number] Take 1 Univers sammy, 9-10 capsule by ity of Vitamin D3, 00:00: mouth [place] (D3-50 00 weekly. Medical CHOLECALCIF Branch SAMMY) 1,250 mcg (50,000 unit) capsule Cholecalcif Yes [id number] Take 1 Univers sammy, 9-10 capsule by ity of Vitamin D3, 00:00: mouth [place] (D3-50 00 weekly. Medical CHOLECALCIF Branch SAMMY) 1,250 mcg (50,000 unit) capsule Insulin 2018-10 Yes Use as Univers [place], 2-11 directed ity of Disposable, 00:00: to inject [place] (NOVOFINE 00 Norditropi Medi ang 32) 32 n daily. Branch gauge x Dx E 23.0 1/4" Ndle Insulin 2018-10 Yes Use as Univers [place], 2-11 directed ity of Disposable, 00:00: to inject [place] (NOVOFINE 00 Norditropi Medi ang 32) 32 n daily. Branch gauge x Dx E 23.0 /4" Ndle Insulin 2018-10 Yes Use as Univers [place], 2-11 directed ity of Disposable, 00:00: to inject [place] (NOVOFINE 00 Norditropi Medi ang 32) 32 n daily. Branch gauge x Dx E 23.0 /4" Ndle liraglutide Yes [id number] 3mg inject 3 Univers (SAXENDA) 3 7-31 mg under ity of mg/0.5 mL 00:00: the skin [place] (18 mg/3 00 daily. Medical mL) PnIj Start with Branc h 0.6 mg daily and increase by 0.6 mg every week till you reach 3 mg daily liraglutide Yes [id number] 3mg inject 3 Univers (SAXENDA) 3 7-31 mg under ity of mg/0.5 mL 00:00: the skin [place] (18 mg/3 00 daily. Medical mL) PnIj Start with Branc h 0.6 mg daily and increase by 0.6 mg every week till you reach 3 mg daily liraglutide Yes [id number] 3mg inject 3 Univers (SAXENDA) 3 7-31 [...] } Sprays in ity of 0.6 % [place] 00:00: each 00 nostril Medical daily. Branch Olopatadine 2013-10 Yes 2{spray Use 2 Un jeanette (PATANASE) 2-16 } Sprays in ity of 0.6 % [place] 00:00: each 00 nostril Medical daily. [place] Olopatadine 2013-10 Yes 2{spray Use 2 Un jeanette (PATANASE) 2-16 } Sprays in ity of 0.6 % [place] 00:00: each [place] 00 nostril Medical daily. [...] Branch triamcinolo 2013-10 Yes Apply to [facility] 1[facility] area(s) 2 ity of (KENALOG) 00:00: (two) [place] 0.025 % 00 times Medical cream daily. Branch mometasone 2013-10 Yes 1{spray Use 1 Uni vers (NASONEX) 1-04 } [place] in ity of 50 00:00: each [place] [...] Use 1 Uni vers (NASONEX) 1-04 } [place] in ity of 50 00:00: each [place] [...] Use 1 Uni vers (NASONEX) 1-04 } [place] in ity of 50 00:00: each [place] mcg/actuati 00 nostril 2 Med ical on nasal (two) Branch spray times daily. albuterol 2013-10 Yes 2{puff} Inhale 2 U nivers (PROAIR 1-04 Puffs ity of HFA) 90 00:00: every 6 [place] mcg/actuati 00 (six) Medical on inhaler hours as Branc h needed for Wheezing, Shortness of Breath or Chest tightness. fluconazole 2013-10 Yes [id number] Take one Univers (DIFLUCAN) 0-29 tab po ity of 150 mg 00:00: today then [place] tablet 00 repeat in Medical 3 days. Branch fluconazole 2013-10 Yes [id number] Take one Univers (DIFLUCAN) 0-29 tab po ity of 150 mg 00:00: today then [place] tablet 00 repeat in Medical 3 days. Branch fluconazole 2013- Yes [id number] Take one Univers (DIFLUCAN) 0-29 tab po ity of 150 mg 00:00: today then [place] tablet 00 repeat in Medical 3 days. [place] Immunizations Ordered Filled Immunization Date Status Comments [facility] e Immunization Name Name COVID-19 Pfizer 12 2021-10-22 [facility]:00 Influenza, 2021-10-22 [facility] quadrivalent, 00:00:00 injectable, preservative free Influenza, 2021-10-22 Completed [facility] quadrivalent, 00:00:00 injectable, preservative free COVID-19 Pfizer 12 2021-10-22 [facility] Vacc[facility] 00:00:00 Influenza, 2021-10-22 Completed [place] [facility] quadrivalent, 00:00:00 injectable, preservative free COVID-19 Pfizer 12 2021-10-22 [facility] Vacc[facility] 00:00:00 Influenza Virus 2014-08-23 Completed Universit y of Vaccine Quad IM 3+ 00:00:00 [facility] Influenza Virus 2014-08-23 Completed Universit y of Vaccine Quad IM 3+ 00:00:00 [facility] Influenza Virus 2014-08-23 Completed Universit y of Vaccine Quad IM 3+ 00:00:00 [facility] Vital Signs Vital Name Observation Time Observation Value Comments Source WEIGHT 2021-06-22 20:00:00 58.06 kg HEIGHT 2021-06-21 14:28:00 154.9 cm WEIGHT 2021-06-21 14:28:00 57.5 kg Systolic blood pressure 2021-11-21 17:01:00 136 mm[Hg] [facility] Diastolic blood pressure 2021-11-21 17:01:00 84 mm[Hg] [facility] Heart rate 2021-11-21 17:01:00 87 /min [facility] temperature 2021-11-21 17:01:00 37 Sri [facility] Body height 2021-11-21 17:01:00 149.9 cm [facility] Body weight 2021-11-21 17:01:00 [facility].323 [facility] BMI 2021-11-21 17:01:00 25.52 kg/m2 [facility] WEIGHT 2021-06-22 20:00:00 58.06 kg HEIGHT 2021-06-21 14:28:00 154.9 cm WEIGHT 2021-06-21 14:28:00 57.5 kg Procedures This patient has no known procedures. Encounters Start End Encounter Admission Attending Care Care Encounter Source Date/Time Date/Time Type Type Clinicians Facility Department ID 2022-05-20 Outpatient [facility] [id number] [place] 14:49:[id number] [facility] 2022-04-22 Outpatient [facility] [id number] [place] 15:55:[id number] [facility] 2021-11-21 Outpatient [facility] [id number] [place] 11:49:37 [facility] 2021-10-21 Outpatient [facility] [id number] [place] 22:16:26 [facility] 2021-10-14 Outpatient [facility] [id number] [place] 16:35:48 [facility] 2021-08-04 Inpatient ER SHIEH, [facility] [id number] [facility] 10:20:24 [facility] 2022-06-18 2022-06-18 Outpatient R [facility] [id number] Univers 10:30:00 10:30:00 KIRAN [id number] [facility] 2022-06-18 2022-06-18 Outpatient R [facility] [id number] Univers 10:30:00 10:30:00 KIRAN [facility] 2022-06-02 2022-06-02 Outpatient [facility] PRIV PRIV [id number] [facility] 00:00:00 00:00:00 _Lotze_P [id number] Medic al 2022-05-31 2022-05-31 Refill [facility] [id number] Univers 00:00:00 00:00:00 Kiran Chowdary PRIMARY [id number] ity of CARE 4.2.7.2.686 [place] [id number] [address] 2022-05-16 2022-05-16 Refill [facility] [id number] Univers 00:00:00 00:00:00 [facility] 350.1.13.10 [facility] Emergency Department 4.2.7.2.686 Bhavincory aponte ANNIKA [id number] Ia dical 220 Branch 2022-05-07 2022-05-07 [facility] [place] 09:37:00 09:37:[address] [facility] Outre h Program 2022-05-03 2022-05-03 Outpatient [facility] PRIV PRIV [id number] [facility] 03:04:00 03:04:00 _Lotze_P [id number] Medic al 2022-04-25 2022-04-25 Outpatient [facility] PR[facility] PRIV [id number] [facility] 07:38:00 07:38:00 _Lotze_P [id number] Medic al 2022-04-24 2022-04-24 Outpatient [facility] PRIV PRIV [id number] [facility] 01:03:00 01:03:00 _Lotze_P [id number] Medic al 2022-04-21 2022-04-21 Outpatient Lotze, PRIV PRIV [id number] c-f 00:00:00 00:00:00 Malcolm [id number] Travis [id number] 2022-04-12 2022-04-12 Outpatient [facility] PR[facility] PRIV [id number] [facility] 07:52:00 07:52:00 _Lotze_P [id number] Medic al 2022-04-10 2022-04-10 Outpatient [facility] PRIV PRIV [id number] [facility] 01:18:00 01:18:00 _Lotze_P [id number] Medic al 2022-04-09 2022-04-09 Outpatient [facility] PRIV PRIV [id number] [facility] 11:29:00 11:29:00 _Lotze_P [id number] Medic al 2022-04-08 2022-04-08 Outpatient [facility] PRIV PRIV [id number] [facility] 11:25:00 11:25:00 _Lotze_P [id number] Medic al 2022-04-08 2022-04-08 Outpatient Lotze, PRIV PRIV [id number] e-e 00:00:00 00:00:00 Malcolm [id number] Travis [id number] 2022-04-07 2022-04-07 Outpatient [facility] PR[facility] PRIV [id number] [facility] 05:55:00 05:55:00 _Lotze_P [id number] Medic al 2022-02-12 2022-02-12 Outpatient [facility] PRIV PRIV [address] [place] [address] [facility] 03:40:00 03:40:00 _Lotze_P [id number] Medic al 2022-02-11 2022-02-11 [facility] [id number] [facility] 00:00:00 00:00:00 Kiran Chowdary [facility] 350.1.13.10 [facility] Emergency Department 4.2.7.2.686 [place] [id number] Ia dical 220 Branch 2022-01-15 2022-01-15 Outpatient [facility] PRIV PRIV [address] [place] [address] [facility] 02:55:00 02:55:00 _Lotze_P [id number] Medic al 2021-12-18 2021-12-18 Outpatient [facility] PR[facility] PRIV [address] [place] [address] [facility] 04:21:00 04:21:00 _Lotze_P [id number] Medic al 2021-11-21 2021-11-21 Office Luis [facility] [id number] [place] 10:00:00 11:49:53 Visit Travis SIMÓN 350.1.13.58 ish [facility] 9.2.7.2.686 [id number] 2021-11-21 2021-11-21 Outpatient [facility] PRIV PRIV [id number] [facility] 06:16:00 06:16:00 _Lotze_P [id number] Medic al 2021-11-04 2021-11-04 Outpatient [facility] PRIV PRIV [id number] [facility] 05:32:00 05:32:00 _Lotze_P [id number] Medic al 2021-10-29 2021-10-29 Outpatient [facility] PR[facility] PRIV [id number] [facility] 04:24:00 04:24:00 _Lotze_P [id number] Medic al 2021-10-23 2021-10-23 Outpatient [facility] PR[facility] PRIV [id number] [facility] 02:06:00 02:06:00 _Lotze_P [id number] Medic al 2021-10-22 2021-10-22 Immunizati G125, Covid UTP 6414 1.2.840.11 4 [id number] [place] 13:30:00 13:40:00 on Vaccine - [address] 350.1.13.58 Health Pfizer 9.2.7.2.686 600.6183857 3 2021-10-22 2021-10-22 Immunizati G125, Covid UTP 6414 1.2.840.11 4 [id number] [place] 13:30:00 13:40:00 on Vaccine - [address] 350.1.13.58 Health Pfizer 9.2.7.2.686 [id number] 3 2021-10-16 2021-10-16 Outpatient [facility] PRIV PRIV [id number] [facility] 03:48:00 03:48:00 _Lotze_P [id number] Medic al 2021-10-16 2021-10-16 Outpatient Lotze, PRIV PRIV [id number] c-7 00:00:00 00:00:00 Malcolm [id number]-[id number]-5 Travis [id number] 2021-10-09 2021-10-09 Outpatient [facility] PRIV PRIV [id number] [facility] 05:30:00 05:30:00 _Lotze_P [id number] Medic al 2021-10-07 2021-10-07 Outpatient [facility] PRIV PRIV [id number] [facility] 04:49:00 04:49:00 _Lotze_P [id number] Medic al 2021-10-07 2021-10-07 Outpatient Lotze, PRIV PRIV [id number] [id number] 00:00:00 00:00:00 Malcolm [id number] Travis [id number] 2021-10-03 2021-10-03 Outpatient [facility] PRIV PRIV [id number] [facility] 03:07:00 03:07:00 _Lotze_P [id number] Medic al 2020-11-16 2020-11-16 Hospital [facility] 1.2.840.114 [id number] 15:00:00 23:59:00 Encounter Kiran Chowdary [place] 350.1.13.10 [place] 4.2.7.2.686 [place] [id number] 2020-11-16 2020-11-16 Orders Doctor KATHY 1.2.840.114 [id number] 00:00:00 00:00:00 Only Unassigned, JON 350.1.13.10 [place] 111[address].2.7.2.686 [id number] 2020-11-07 2020-11-07 Telephone [facility] [id number] [id number] 00:00:00 00:00:00 Kiran Chowdary PRIMARY 350.1.13.10 CARE 4.2.7.2.686 PAVILLION [id number] 2020-11-02 2020-11-02 Patient [facility] 1.2.840.114 [id number] 00:00:00 00:00:00 [facility] 350.1.13.10 CARE 4.2.7.2.686 PAVILLION [id number] 2020-08-08 2020-08-08 Telemedici [facility] 1.2.840.114 [id number] 09:49:18 16:39:55 ne [facility] PRIMARY 350.1.13.10 CARE 4.2.7.2.686 PAVILLION [id number] 220 2020-02-14 2020-02-14 Patient Doctor [facility] 1.2.840.114 [id number] 00:00:00 00:00:00 Secure Msg Unassigned, MULTISPEC 350.1.13.10 [place] IALTY 4.2.7.2.686 [place] [id number] [facility] [place] [facility] 2020-02-11 2020-02-11 Refill Ashley [facility] 1.2.840.114 [id number] 00:00:00 00:00:00 Souad MULTISPEC 350.1.13.10 IAFLAVIA 4.2.7.2.686 [place] [id number] [place] [facility] 2020-02-07 2020-02-07 Credit Director Araceli Sheehan [facility] 1.2.840.114 [id number] 11:02:28 12:15:54 Visit Lab Main [place] 350.1.13.10 [place] 4.2.7.2.686 Professio [id number] [facility] 353 [facility] 2020-02-07 2020-02-07 Refill Ashley, [facility] 1.2.840.114 [id number] 00:00:00 00:00:00 Souad MULTISPEC 350.1.13.10 IALTY 4.2.7.2.686 [place] [id number] [place] [facility] Results Test Description Test Time Test Comments Results Result [facility] e Comments TISSUE EXAM 2021-06-26 Surgical Pathology Report 11:39:00 Case: [id number] Authorizing Provider: Khai Blum MD Collected: 06/23/2021 08:28 AM Ordering Location: [address] Med/Surg Received: 06/24/2021 10:12 AM Pathologist: Ce Iniguez MD Specimens: A) - Small Bowel, NOS B) - Biopsy, Gastric, remnant gastric biopsy This addendum is to report Edwin Bass results. WARTHIN STARRY: NEGATIVE FOR H. PYLORI [...] TO FOLLOW Signing Pathologist Direct Phone Line: [phone] y signed by Ce Iniguez MD on 06/25/2021 at 11:15 AM/[id number] A. Small bowel NOS. B. Biopsy gastric [...] evaluated Immunohistochemistry technical testing was performed at [facility], Pathology Laboratory where it was developed and [...] qualified to perform high complexity clinical laboratory testing.[facility], Department of Pathology, [address] [place] [address], [address] [facility], Department of Pathology, [address] [place] [address], [facility], Department of Pathology, [address] [place] [address], HEMORRHAGE 2021-06-25 Unlisted IMAGING, RBC 09:55:00 Reason for Exam - Click [facility] - Yes and Enter MEDICAL CENTERName: Reason [place] [employer] : Below->No 1960 Sex: F FINAL REPORT PROCEDURE: HEMORRHAGE STUDY with RBCs CPT CODE: 71651 INDICATION: Gastrointestinal Bleeding PROTOCOL: 28.0 mCi of [...] MDReport Verified Date/Time: 06/25/2021 09:55:14 Reading Location: [address] Reading Room C METABOLIC PANEL 2021-06-25 [...] NOT 1092) ACCURATE CRE ATININE CLEARANCE IN [place] EDICTING GLOMERULAR FILT RATION RATE. ESTIMATED GFR IS NOT APPLICABLE FOR DIALYSIS PATIENTS. 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 ID - LITOOperator ID - LITOOperator ID - LITOOperator ID - LITOOperator ID - LITOOperator ID - LITOOperator ID - LITOOperator ID - LITOOperator ID - LITOOperator ID - [id number] 06:08:00 Test Item Value Reference Range Interpretation Comments MAGNESIUM (BEAKER) (test code = 1.9 mg/dL 1.5-3.0 627) 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 ID - LITOOperator ID - LITOOperator ID - LITOOperator ID - LITOCBC W/PLT COUNT & AUTO [id number] 05:43:00 Test Item Value Reference Range Interpretation [...] 0-0 PERCENT (BEAKER) (test code = 2801) [id number] 05:20:00 Test Item Value Reference Range Interpretation Comments MAGNESIUM (BEAKER) (test code = 1.9 mg/dL 1.5-3.0 627) 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 ID - [id number] ID - [id number] ID - [id number] ID - [id number] BASIC METABOLIC [id number] 05:19:00 Test Item Value Reference Range Interpretation [...] S NOT APPLICABLE FOR DIALYSIS PATIEN TS. 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 ID - [id number] ID - [id number] ID - [id number] ID - [id number] ID - WLPC09Ohkfppkd ID - ZFFS60Wvmsxeti ID - RLEE60Irehkzjs ID - MYUZ26Jwnbdxkz ID - [id number] W/PLT COUNT & AUTO [id number] 04:59:00 Test Item Value Reference Range Interpretation [...] (test code = 2801) VITAMIN B12 AND [id number] 07:35:00 Test Item Value Reference Range Interpretation Comments VITAMIN B12 1390 pg/mL 211-911 H (BEAKER) (test code = 774) FOLATE (BEAKER) 13.60 ng/mL See_Comment [Automated message] (test code = 362) The system which generated this result transmitted ref erence range: >=5.4. T he reference range was not used to interpr et this result as normal/abnormal . 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 ID - [id number] ID - [id number], TIBC, % SAT. (WITHOUT FERRITIN)2021-06-23 07:12:00 Test Item Value Reference Range Interpretation Comments IRON (BEAKER) (test code = 547) 84.0 ug/dL 45.0-170.0 TOTAL IRON BINDING CAPACITY 341 ug/dL 250-550 (BEAKER) (test code = 769) IRON % SATURATION (2) (BEAKER) 25 % 20-55 (test code = 2590) 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 ID - [id number] ID - [id number] METABOLIC [id number] 07:12:00 Test Item Value Reference Range Interpretation [...] S NOT APPLICABLE FOR DIALYSIS PATIEN TS. 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 ID - [id number] ID - [id number] ID - EIBO24Ontcuftk ID - NIVV64Zbcliztu ID - [id number] ID - DERE42Astaomjj ID - YIRP82Zfseoulh ID - VXQN30Zaerqibp ID - NSYG46Dxirajft ID - [id number] 06:45:00 Test Item Value Reference Range Interpretation Comments MAGNESIUM (BEAKER) (test code = 2.0 mg/dL 1.5-3.0 627) 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 ID - [id number] ID - [id number] ID - [id number] ID - [id number] C-REACTIVE [id number] 06:42:00 Test Item Value Reference Range Interpretation Comments C-REACTIVE PROTEIN (BEAKER) (test 0.02 mg/dL 0.00-0.50 code = 676) 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 ID - [id number] W/PLT COUNT & AUTO [id number] 06:29:00 Test Item Value Reference Range Interpretation [...] (BEAKER) (test code = 2801) HEMOGLOBIN AND [id number] 20:22:00 Test Item Value Reference Range Interpretation Comments HEMOGLOBIN (BEAKER) (test code = 8.6 GM/DL 12.0-15.5 L 410) HEMATOCRIT (BEAKER) (test code = 26.6 % 36.0-46.0 L 411) URINALYSIS W/ REFLEX URINE [id number] 16:52:00 Test Item Value Reference Range Interpretation [...] (test code = 2795) MR, BRAIN, WITHOUT [id number] 14:05:00Outside CT head unremarkable.Unlisted Reason for Exam - Click Yes and Enter Reason Below->No [facility]Name: DELBERT LAW : 1960 Sex: FFINAL REPORT [...] MDReport Verified Date/Time: 06/22/2021 14:05:16 Reading Location: [address] Neuro Reading Room Electronically signedby: SHAWN FUENTES M.D. on 06/22/2021 02:05 PMCOMPREHENSIVE METABOLIC [id number] 09:28:00 Test Item Value Reference Range Interpretation [...] S NOT APPLICABLE FOR DIALYSIS PATIEN TS. 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 ID - [id number] ID - [id number] ID - [id number] ID - [id number] ID - [id number] ID - [id number] ID - [id number] ID - [id number] ID - [id number] ID - [id number] ID - [id number] ID - [id number] ID - [id number] ID - [id number] ID - [id number] ID - [id number] ID - [id number] ID - [id number] ID - [id number] HEMOGLOBIN AND [id number] 09:10:00 Test Item Value Reference Range Interpretation Comments HEMOGLOBIN (BEAKER) (test code = 7.5 GM/DL 12.0-15.5 L 410) HEMATOCRIT (BEAKER) (test code = 23.1 % 36.0-46.0 L 411) CBC W/PLT COUNT & AUTO [id number] 05:59:00 Test Item Value Reference Range Interpretation [...] PERCENT (BEAKER) (test code = 2801) SARS-COV2/RT-PCR ([facility])2021-06-21 18:53:00 Test Item Value Reference Range Interpretation Comments SARS-COV2/RT-PCR Negative Negative The SARS-Co V-2 target (test code = nucleic acids a re not [id number]) detected in thi s specimen. Negative result [...] revoked sooner. Fact Sheet for Healthcare Providers: https://www.[employer]/Documents/Xpert%20Xpress%20SARS%20CoV-2/Fact%20Sheets/302-3802%28RFEN-BHA-6%20 HEALTHCARE%20PROVIDERS%20FACT%20SHEET.pdf Fact Sheet for Healthcare Patients: https://www.[employer]/Documents/Xpert%20Xp ress%20SARS%20CoV-2/Fact%20Sheets/3023801%32UCAS-BTE-3%20PATIENT%20FACT%20SHEET .pdfCBC W/PLT COUNT & AUTO [id number] 16:35:00 Test Item Value Reference Range Interpretation [...] PERCENT (BEAKER) (test code = 2801) TROPONIN [id number] 16:09:00 Test Item Value Reference Range Interpretation [...] failure, acidosis, acute neurological disease, and persistent tachyarrhythmia.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 ID - [id number] 16:03:00 Test Item Value Reference Range Interpretation Comments PROTIME (BEAKER) 11.1 seconds 9.3-12.0 Final Infor mation (test code = 759) (Auto Outp ut) INR (BEAKER) (test 1.00 See_Comment Final Inf ormation code = 370) (Auto Output) [Automated mess age] The system whic h generated this result transmitted ref erence range: <=5.90. The reference range was not used to int erpret this result as normal/abnormal . RECOMMENDED COUMADIN/WARFARIN INR THERAPY RANGESSTANDARD DOSE: 2.0 - 3.0 Includes: PROPHYLAXIS for venous thrombosis, systemic embolization; TREATMENT for venous thrombosis and/or pulmonary embolus.HIGH RISK: Target INR is 2.5-3.5 for patients with mechanical heart valves.[id number] 16:03:00 Test Item Value Reference Range Interpretation Comments PARTIAL THROMBOPLASTIN 26.8 seconds 23.0-35.0 Final Information TIME (BEALFONSO) (test (Auto Ou tput) code = 760)
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
[2022-06-05] MEDS ORDERED: HYDROMORPHONE HCL 1 MG/ML INJ ONE ×2 (20:14→22:09)
[2022-06-05] MEDS ORDERED: ONDANSETRON 4 MG/2 ML VIAL ONE (20:14)
[2022-06-05 20:30] LABS: Urine Bilirubin Negative (Negative); Urine Blood Negative (Negative); Urine Clarity Clear (Clear); Urine Color Yellow (Yellow); Urine Glucose Negative (Negative); Urine Protein Negative (Negative); Urine pH 5.5 (5.0-7.0)
[2022-06-05 20:31] LABS: Absolute Lymphocytes (CBC) 2.3 K/uL (0.7-4.9); Hematocrit 38.4 % (36.0-45.0); Lymphocytes % 41.8 % (15.3-44.8); MCV 87.4 fL (80-100); MPV 7.8 fL (7.6-11.3)
[2022-06-05 20:40] LABS: Urine Bacteria <20 /HPF (<20); Urine RBC <5 /HPF (None Seen)
[2022-06-05 20:52] LABS: Potassium 3.1 mmol/L (3.5-5.1)
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
[2022-06-06 04:02] VITALS: O2SAT 100
[2022-06-06 04:05] VITALS: BP 128/97; TEMP 97.9
== END 2022-06-05 22:25 | disposition home or self-care (01) ==
LOC: ER 19:36
DX: S09.90XA Unspecified injury of head, initial encounter (principal); S50.811A Abrasion of right forearm, initial encounter; V57.5XXA Driver of pick-up truck or van injured in collision with fixed or stationary object in traffic accident, initial encounter; I48.0 Paroxysmal atrial fibrillation
CPT/HCPCS: 85025; 81001; 80048; 36415; 86900; 86850; 86901; 70450; 72125; 71260; 74177; 71045; 73090; 96375; 96374; 99284; Q9967; J1170 ×2; J2405

== ENCOUNTER 2023-04-15 13:06 | Emergency (ER) | payer OTHER ==
--- OUTSIDE RECORDS SUMMARY | 2023-04-15 13:16 | XMS REPORT | Continuity of Care Document ---
:1960 Author Organization [facility] t Address [address] [facility] [address] [place] [address] Care Team Providers Name Role Phone Angeline Calles Primary Care Physician TRAVIS MCGUIRE Attending Clinician Unavailable CHRISTOPHER LIMON Attending Clinician Unavailable KIRAN PRABHAKAR Attending Clinician Unavailable Kiran Prabhakar MD Attending Clinician [email or web address] Attending Clinician Unavailable Pcp-Lab Attending Clinician Unavailable JORDY BROWN Attending Clinician Unavailable RICHARD Attending Clinician Unavailable Malcolm Sharma Attending Clinician [phone] Lissy Chavez MD Attending Clinician [phone] Nate Clark MD Attending Clinician Doctor Unassigned, [place] Attending Clinician Unavailable [id number], Covid Vaccine - Pfizer Attending Clinician Unavailable Alyx Weaver DO Attending Clinician Pob, [facility] Main Attending Clinician Unavailable Angeline Aburto Attending Clinician [phone] Moe Javier DO Attending Clinician Ashley [facility] Attending Clinician Radha Caldwell MD Attending Clinician Unavailable CHRISTOPHER LIMON Admitting Clinician Unavailable [email or web address] Admitting Clinician Unavailable RICHARD Admitting Clinician Unavailable KIRAN PRABHAKAR Admitting Clinician Unavailable Payers Payer Name Policy Type Policy Number Effective Date Expiration Date Frances phillips MEDICARE PART A AND [id number] 2014 B 00:00:00 [employer] MEDICARE PPO [id number] 2019 2021 00:00:00 00:00:00 [employer]ETNA MEDICARE HMO [id number] 2019 POS 00:00:00 MEDIC[place] B-[place]: [id number] 2014 [employer] 00:00:00 [employer]NA MEDICARE OUT [id number] 2019 2021 OF NETWORK 00:00:00 00:00:00 [employer] (MEDICARE [id number] 2019 REPLACEMENT PPO) 00:00:00 Problems Condition Condition Condition Status Onset Resolution Last Treating Co mments Source Name Details Category Date Date Treatment Clinician Date Venereal Venereal Problem Active [facility] disease Disease 6-14 Medical screening Screening 00:00: 00 Chronic Chronic Problem Active [facility] vaginitis Vaginitis 8-25 Medi ang 00:00: 00 Postoperat Postoperat Problem Active [facility] dayanara care dayanara Care 7-17 Medica l 00:00: 00 Vaginitis Vaginitis Problem Active [facility] via 6-06 Medical 00:00: 00 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 6-06 Medica l cells of Cells of 00:00: undetermin Undetermin 00 ed ed significan Significan ce on ce on cervical Cervical Papanicola Papanicola ou smear ou Smear Hypothyroi Hypothyroi Problem Active 2017-10 [facility] dism dism 1-30 Medical 00:00: 00 Menopausal Menopausal Problem Active [facility] symptom Symptom 8-23 Medical 00:00: 00 Urge Urge Problem Active [facility] incontinen Incontinen 3-06 Me dical ce of ce of 00:00: urine Urine 00 Urinary Urinary Problem Active 2016-10 [facility] tract Tract 2-05 Medical infectious Infectious 00:00: disease Disease 00 Atrophic Atrophic Problem Active 2016-10 [facility] a vaginitis Vaginitis 2-05 Medi ang 00:00: 00 Fatigue Fatigue Disease Active Univers 1-25 ity of 00:00: Medical Branch Polyuria Polyuria Disease Active Unive rs 7-30 ity of 00:00: Medical Branch Salivary Salivary Disease Recurre Univ ers calculus calculus nce 7 ity of 00:00: Medical Branch Prediabete Prediabete Disease Active U nivers s s 7- ity of 00:00: Medical Branch Sacroiliac Sacroiliac Disease Active U nivers joint joint 6-05 ity of dysfunct[place] 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 ity of [facility] Branch Allergies, Adverse Reactions, Alerts Allergy Allergy Status Severity Reaction(s) Onset Inactive Treating Comm ents Source Name Type Date Date Clinician NO KNOWN Drug Active Univers ALLERGIE Class ity of [facility] NO KNOWN Allergy Active [facility] Social History Social Habit Start Date Stop Date Quantity Comments Source History SDOH University o f Alcohol Frequency [facility] edical Branch History [facility] University o f Alcohol Std Drinks [place] [facility] History [facility]VA University o f Alcohol Binge [facility] al Branch Exposure to 2022-12-07 2022-12-17 Not sure University SARS-CoV-2 (event) 00:00:00 11:55:00 [facility] Cigarettes smoked 2022-12-17 2022-12-17 Univers ity of current (pack per 00:00:00 00:00:00 [facility] ) - Reported Branch Cigarette 2022-12-17 2022-12-17 University of pack-years 00:00:00 00:00:00 [facility] Tobacco use and 2022-12-17 2022-12-17 Former smokeless Uni versity of exposure 00:00:00 00:00:00 tobacco user [facility] Alcohol intake 2021-12-16 2021-12-16 Ex-drinker [facility] 00:00:00 00:00:00 (finding) Alcohol Comment 2011-04-23 2011-04-23 socially, 1x Univers ity of 00:00:00 00:00:00 month [facility] History of tobacco 2010-11-23 User of Univer sity of use 00:00:00 smokeless [facility] tobacco [place] Sex Ass[birth year] [facility] 00:00:00 00:00:00 Smoking Status Start Date Stop Date Source Tobacco smoking [facility] consumption unknown Ex-smoker 2022-12-17 00:00:00 2022-12-17 University o f [place] 00:00:00 [facility] Never smoked tobacco [facility] Medications Ordered Filled Start Stop Current Ordering Indication Dosage Frequency Signature Comments Components Source Medication Medication Date Date Medication? Clinician (SIG) Name Name estradioL Yes [id number] 1{patch Apply 1 Univers (VIVELLE-DO 12-18 } Patch to ity of T) 0.05 00:00: skin 2 [place] mg/24 hr 00 (two) Medical twice times a Branch weekly week on patch and Thursday. estradioL Yes [id number] 1{patch Apply 1 Univers (VIVELLE-DO 2-23 } Patch to ity of T) 0.05 00:00: skin 2 [place] mg/24 hr 00 (two) Medical twice times a Branch weekly week on patch and Thursday. estradioL Yes [id number] 1{patch Apply 1 Univers (VIVELLE-DO 2-23 } Patch to ity of T) 0.05 00:00: skin 2 [place] mg/24 hr 00 (two) Medical twice times a Branch weekly week on patch and Thursday. estradioL Yes [id number] 1{patch Apply 1 Univers (VIVELLE-DO 2-23 } Patch to ity of T) 0.05 00:00: skin 2 [place] mg/24 hr 00 (two) Medical twice times a Branch weekly week on patch and Thursday. estradioL Yes [id number] 1{patch Apply 1 Univers (VIVELLE-DO 2-23 } Patch to ity of T) 0.05 00:00: skin 2 [place] mg/24 hr 00 (two) Medical twice times a Branch weekly week on patch and Thursday. estradioL Yes [id number] 1{patch Apply 1 Univers (VIVELLE-DO 2-23 } Patch to ity of T) 0.05 00:00: skin 2 [place] mg/24 hr 00 (two) Medical twice times a Branch weekly week on patch and Thursday. estradioL Yes [id number] 1{patch Apply 1 Univers (VIVELLE-DO 2-23 } Patch to ity of T) 0.05 00:00: skin 2 [place] mg/24 hr 00 (two) Medical twice times a Branch weekly week on patch and Thursday. estradioL Yes [id number] 1{patch Apply 1 Univers (VIVELLE-DO 2-23 } Patch to ity of T) 0.05 00:00: skin 2 [place] mg/24 hr 00 (two) Medical twice times a Branch weekly week on patch and Thursday. Insulin Yes [id number] Use as Uni vers Panther Burn, 2-22 directed ity of Disposable, 00:00: [place] (BD 00 Medical ULTRAFINE Branch III MINI PEN) 31 gauge x 3/16" Ndle levothyroxi 2022-0 Yes [id number] 112ug Take 1 Univers ne 2-22 tablet by ity of (SYNTHROID) 00:00: mouth [place] 112 mcg 00 every Medical tablet morning. Branch liothyronin 2022-0 Yes [id number] TAKE 2 Univers e 5 mcg 2-22 TABLETS BY ity of tablet 00:00: MOUTH AT [place] 00 9AM, 2 Medical TABLETS AT Branch 12PM, AND 1 TABLET IN THE EVENING Insulin 2022-0 Yes [id number] Use as Uni vers Panther Burn, 2-22 directed ity of Disposable, 00:00: [place] (BD 00 Medical ULTRAFINE Branch III MINI PEN) 31 gauge x 3/16" Ndle levothyroxi 2022-0 Yes [id number] 112ug Take 1 Univers ne 2-22 tablet by ity of (SYNTHROID) 00:00: mouth [place] 112 mcg 00 every Medical tablet morning. Branch liothyronin 2022-0 Yes [id number] TAKE 2 Univers e 5 mcg 2-22 TABLETS BY ity of tablet 00:00: MOUTH AT [place] 00 9AM, 2 Medical TABLETS AT [place] 12PM, AND 1 TABLET IN THE EVENING Insulin 2022-0 Yes [id number] Use as Uni vers Panther Burn, 2-22 directed ity of Disposable, 00:00: [place] (BD 00 Medical ULTRAFINE Branch III MINI PEN) 31 gauge x 3/16" Ndle levothyroxi 2022-0 Yes [id number] 112ug Take 1 Univers ne 2-22 tablet by ity of (SYNTHROID) 00:00: mouth [place] 112 mcg 00 every Medical tablet morning. Branch liothyronin 2022-0 Yes [id number] TAKE 2 Univers e 5 mcg 2-22 TABLETS BY ity of tablet 00:00: MOUTH AT [place] 00 9AM, 2 Medical TABLETS AT Branch 12PM, AND 1 TABLET IN THE EVENING Insulin 2022-0 Yes [id number] Use as Uni vers Panther Burn, 2-22 directed ity of Disposable, 00:00: [place] (BD 00 Medical ULTRAFINE Branch III MINI PEN) 31 gauge x 3/16" Ndle levothyroxi 2022-0 Yes [id number] 112ug Take 1 Univers ne 2-22 tablet by ity of (SYNTHROID) 00:00: mouth [place] 112 mcg 00 every Medical tablet morning. Branch liothyronin 2022-0 Yes [id number] TAKE 2 Univers e 5 mcg 2-22 TABLETS BY ity of tablet 00:00: MOUTH AT [place] 00 9AM, 2 Medical TABLETS AT Branch 12PM, AND 1 TABLET IN THE EVENING Insulin 2022-0 Yes [id number] Use as Uni vers Panther Burn, 2-22 directed ity of Disposable, 00:00: [place] (BD 00 Medical ULTRAFINE Branch III MINI PEN) 31 gauge x 3/16" Ndle levothyroxi 2022-0 Yes [id number] 112ug Take 1 Univers ne 2-22 tablet by ity of (SYNTHROID) 00:00: mouth [place] 112 mcg 00 every Medical tablet morning. Branch liothyronin 2022-0 Yes [id number] TAKE 2 Univers e 5 mcg 2-22 TABLETS BY ity of tablet 00:00: MOUTH AT [place] 00 9AM, 2 Medical TABLETS AT Branch 12PM, AND 1 TABLET IN THE EVENING Insulin 2022-0 Yes [id number] Use as Uni vers Panther Burn, 2-22 directed ity of Disposable, 00:00: [place] (BD 00 Medical ULTRAFINE Branch III MINI PEN) 31 gauge x 3/16" Ndle levothyroxi 2022-0 Yes [id number] 112ug Take 1 Univers ne 2-22 tablet by ity of (SYNTHROID) 00:00: mouth [place] 112 mcg 00 every Medical tablet morning. Branch liothyronin 2022-0 Yes [id number] TAKE 2 Univers e 5 mcg 2-22 TABLETS BY ity of tablet 00:00: MOUTH AT [place] 00 9AM, 2 Medical TABLETS AT Branch 12PM, AND 1 TABLET IN THE EVENING Insulin 2022-0 Yes [id number] Use as Uni vers Panther Burn, 2-22 directed ity of Disposable, 00:00: [place] (BD 00 Medical ULTRAFINE Branch III MINI PEN) 31 gauge x 3/16" Ndle levothyroxi 2022-0 Yes [id number] 112ug Take 1 Univers ne 2-22 tablet by ity of (SYNTHROID) 00:00: mouth [place] 112 mcg 00 every Medical tablet morning. Branch liothyronin 2022-0 Yes [id number] TAKE 2 Univers e 5 mcg 2-22 TABLETS BY ity of tablet 00:00: MOUTH AT [place] 00 9AM, 2 Medical TABLETS AT Branch 12PM, AND 1 TABLET IN THE EVENING Insulin 2022-0 Yes [id number] Use as Uni vers Panther Burn, 2-22 directed ity of Disposable, 00:00: [place] (BD 00 Medical ULTRAFINE Branch III MINI PEN) 31 gauge x 3/16" Ndle levothyroxi 2022-0 Yes [id number] 112ug Take 1 Univers ne 2-22 tablet by ity of (SYNTHROID) 00:00: mouth [place] 112 mcg 00 every Medical tablet morning. Branch liothyronin 3-0 Yes [id number] TAKE 2 Univers e 5 mcg 2-22 TABLETS BY ity of tablet 00:00: MOUTH AT [place] 00 9AM, 2 Medical TABLETS AT Branch 12PM, AND 1 TABLET IN THE EVENING Somatropin 3-0 Yes .6mg inject 0.6 U nivers (NUTROPIN 2-14 mg under ity of AQ NUSPIN) 00:00: the skin Bhavin as 5 mg/2 mL 00 in the Medical (2.5 mg/mL) morning. Bran ch PnIj pen needle, 0 Yes 1{each} 1 Each U nivers diabetic 2-14 daily. ity of (NOVOFINE 00:00: [place] PLUS) 32 00 Medical gauge x Branch 1/6" Ndle Somatropin 2022-0 Yes .6mg inject 0.6 U nivers (NUTROPIN 2-14 mg under ity of AQ NUSPIN) 00:00: the skin Bhavin as 5 mg/2 mL 00 in the Medical (2.5 mg/mL) morning. Bran ch PnIj pen needle, 2022-0 Yes 1{each} 1 Each U nivers diabetic 2-14 daily. ity of (NOVOFINE 00:00: [place] PLUS) 32 00 Medical gauge x Branch 1/6" Ndle Somatropin 2022-0 Yes .6mg inject 0.6 U nivers (NUTROPIN 2-14 mg under ity of AQ NUSPIN) 00:00: the skin Bhavin as 5 mg/2 mL 00 in the Medical (2.5 mg/mL) morning. Bran ch PnIj pen needle, 2022-0 Yes 1{each} 1 Each U nivers diabetic 2-14 daily. ity of (NOVOFINE 00:00: [place] PLUS) 32 00 Medical gauge x Branch 1/6" Ndle Somatropin 2022-0 Yes .6mg inject 0.6 U nivers (NUTROPIN 2-14 mg under ity of AQ NUSPIN) 00:00: the skin [place]hav[place] as 5 mg/2 mL 00 in the Medical (2.5 mg/mL) morning. Bran ch PnIj pen needle, 2022-0 Yes 1{each} 1 Each U nivers diabetic 2-14 daily. ity of (NOVOFINE 00:00: [place] PLUS) 32 00 Medical gauge x Branch 1/6" Ndle Somatropin 2022-0 Yes .6mg inject 0.6 U nivers (NUTROPIN 2-14 mg under ity of AQ NUSPIN) 00:00: the skin Bhav[place] as 5 mg/2 mL 00 in the Medical (2.5 mg/mL) morning. Bran ch PnIj pen needle, 2022-0 Yes 1{each} 1 Each U nivers diabetic 2-14 daily. ity of (NOVOFINE 00:00: [place] PLUS) 32 00 Medical gauge x Branch 1/6" Ndle Somatropin 2022-0 Yes .6mg inject 0.6 U nivers (NUTROPIN 2-14 mg under ity of AQ NUSPIN) 00:00: the skin [place]hav[place] as 5 mg/2 mL 00 in the Medical (2.5 mg/mL) morning. Bran ch PnIj pen needle, 2022-0 Yes 1{each} 1 Each U nivers diabetic 2-14 daily. ity of (NOVOFINE 00:00: [place] PLUS) 32 00 Medical gauge x Branch 1/6" Ndle Somatropin 2022-0 Yes .6mg inject 0.6 U nivers (NUTROPIN 2-14 mg under ity of AQ NUSPIN) 00:00: the skin [place]hav[place] as 5 mg/2 mL 00 in the Medical (2.5 mg/mL) morning. Bran ch PnIj pen needle, 2022-0 Yes 1{each} 1 Each U nivers diabetic 2-14 daily. ity of (NOVOFINE 00:00: [place] PLUS) 32 00 Medical gauge x Branch 1/6" Ndle Somatropin 2022-0 Yes .6mg inject 0.6 U nivers (NUTROPIN 2-14 mg under ity of AQ NUSPIN) 00:00: the skin Bhavin as 5 mg/2 mL 00 in the Medical (2.5 mg/mL) morning. Bran ch PnIj pen needle, 2022-0 Yes 1{each} 1 Each U nivers diabetic 2-14 daily. ity of (NOVOFINE 00:00: [place] PLUS) 32 00 Medical gauge x Branch 1/6" Ndle Somatropin 3-0 Yes .6mg inject 0.6 U nivers (NUTROPIN 2-14 mg under ity of AQ NUSPIN) 00:00: the skin Bhavin as 5 mg/2 mL 00 in the Medical (2.5 mg/mL) morning. Bran ch PnIj pen needle, 2022-0 Yes 1{each} 1 Each U nivers diabetic 2-14 daily. ity of (NOVOFINE 00:00: [place] PLUS) 32 00 Medical gauge x Branch 1/6" Ndle Somatropin 2022-0 Yes .6mg inject 0.6 U nivers (NUTROPIN 2-14 mg under ity of AQ NUSPIN) 00:00: the skin Bhavin as 5 mg/2 mL 00 in the Medical (2.5 mg/mL) morning. Bran ch PnIj pen needle, 2022-0 Yes 1{each} 1 Each U nivers diabetic 2-14 daily. ity of (NOVOFINE 00:00: [place] PLUS) 32 00 Medical gauge x Branch 1/6" Ndle Somatropin 2022-0 Yes .6mg inject 0.6 U nivers (NUTROPIN 2-14 mg under ity of AQ NUSPIN) 00:00: the skin Bhavin as 5 mg/2 mL 00 in the Medical (2.5 mg/mL) morning. Bran ch PnIj pen needle, 2022-0 Yes 1{each} 1 Each U nivers diabetic 2-14 daily. ity of (NOVOFINE 00:00: [place] PLUS) 32 00 Medical gauge x Branch 1/6" Ndle Somatropin 3-0 Yes .6mg inject 0.6 U nivers (NUTROPIN 2-14 mg under ity of AQ NUSPIN) 00:00: the skin Bhavin as 5 mg/2 mL 00 in the Medical (2.5 mg/mL) morning. Bran ch PnIj pen needle, 2022-0 Yes 1{each} 1 Each U nivers diabetic 2-14 daily. ity of (NOVOFINE 00:00: [place] PLUS) 32 00 Medical gauge x Branch 1/6" Ndle Somatropin 2023-0 Yes .6mg inject 0.6 U nivers (NUTROPIN 2-14 mg under ity of AQ NUSPIN) 00:00: the skin Bhavin as 5 mg/2 mL 00 in the Medical (2.5 mg/mL) morning. Bran ch PnIj pen needle, Yes 1{each} 1 Each U nivers diabetic 2-14 daily. ity of (NOVOFINE 00:00: [place] PLUS) 32 00 Medical gauge x Branch 10/31" Ndle levothyroxi Yes [id number] 112ug Take 1 Univers ne 9-29 tablet by ity of (SYNTHROID) 00:00: mouth [place] 112 mcg 00 every Medical tablet morning. Branch liothyronin Yes [id number] TAKE 2 Univers e 5 mcg 9-29 TABLETS BY ity of tablet 00:00: MOUTH AT [place] 00 9AM, 2 Medical TABLETS AT [place] 12PM, AND 1 TABLET IN THE EVENING Cholecalcif 2021-0 Yes [id number] Take 1 Univers la nena, 9-29 capsule by ity of Vitamin D3, 00:00: mouth [place] (D3-50 00 weekly. Medical CHOLECALCIF Branch LA NENA) 1,250 mcg (50,000 unit) capsule levothyroxi 2021-0 Yes [id number] 112ug Take 1 Univers ne 9-29 tablet by ity of (SYNTHROID) 00:00: mouth [place] 112 mcg 00 every Medical tablet morning. Branch liothyronin 2021-0 Yes [id number] TAKE 2 Univers e 5 mcg 9-29 TABLETS BY ity of tablet 00:00: MOUTH AT [place] 00 9AM, 2 Medical TABLETS AT Branch 12PM, AND 1 TABLET IN THE EVENING Cholecalcif 2021-0 Yes [id number] Take 1 Univers la nena, 9-29 capsule by ity of Vitamin D3, 00:00: mouth [place] (D3-50 00 weekly. Medical CHOLECALCIF Branch LA NENA) 1,250 mcg (50,000 unit) capsule levothyroxi 2021-0 Yes [id number] 112ug Take 1 Univers ne 9-29 tablet by ity of (SYNTHROID) 00:00: mouth [place] 112 mcg 00 every Medical tablet morning. Branch liothyronin 2021-0 Yes [id number] TAKE 2 Univers e 5 mcg 9-29 TABLETS BY ity of tablet 00:00: MOUTH AT [place] 00 9AM, 2 Medical TABLETS AT Branch 12PM, AND 1 TABLET IN THE EVENING Cholecalcif 2022-0 Yes [id number] Take 1 Univers la nena, 9-29 capsule by ity of Vitamin D3, 00:00: mouth [place] (D3-50 00 weekly. Medical CHOLECALCIF Branch [place] NENA) 1,250 mcg (50,000 unit) capsule levothyroxi 2-0 Yes [id number] 112ug Take 1 Univers ne 9-29 tablet by ity of (SYNTHROID) 00:00: mouth [place] 112 mcg 00 every Medical tablet morning. Branch liothyronin 2-0 Yes [id number] TAKE 2 Univers e 5 mcg 9-29 TABLETS BY ity of tablet 00:00: MOUTH AT [place] 00 9AM, 2 Medical TABLETS AT [place] 12PM, AND 1 TABLET IN THE EVENING Cholecalcif 2-0 Yes [id number] Take 1 Univers la nena, 9-29 capsule by ity of Vitamin D3, 00:00: mouth [place] (D3-50 00 weekly. Medical CHOLECALCIF Branch [place] NENA) 1,250 mcg (50,000 unit) capsule levothyroxi 2-0 Yes [id number] 112ug Take 1 Univers ne 9-29 tablet by ity of (SYNTHROID) 00:00: mouth [place] 112 mcg 00 every Medical tablet morning. Branch liothyronin 2-0 Yes [id number] TAKE 2 Univers e 5 mcg 9-29 TABLETS BY ity of tablet 00:00: MOUTH AT [place] 00 9AM, 2 Medical TABLETS AT [place] 12PM, AND 1 TABLET IN THE EVENING Cholecalcif 2-0 Yes [id number] Take 1 Univers la nena, 9-29 capsule by ity of Vitamin D3, 00:00: mouth [place] (D3-50 00 weekly. Medical CHOLECALCIF Branch [place] NENA) 1,250 mcg (50,000 unit) capsule levothyroxi 2-0 Yes [id number] 112ug Take 1 Univers ne 9-29 tablet by ity of (SYNTHROID) 00:00: mouth [place] 112 mcg 00 every Medical tablet morning. Branch liothyronin 2022-0 Yes [id number] TAKE 2 Univers e 5 mcg 9-29 TABLETS BY ity of tablet 00:00: MOUTH AT [place] 00 9AM, 2 Medical TABLETS AT Branch 12PM, AND 1 TABLET IN THE EVENING Cholecalcif 2022-0 Yes [id number] Take 1 Univers la nena, 9-29 capsule by ity of Vitamin D3, 00:00: mouth [place] (D3-50 00 weekly. Medical CHOLECALCIF Branch [place] NENA) 1,250 mcg (50,000 unit) capsule levothyroxi 2-0 Yes [id number] 112ug Take 1 Univers ne 9-29 tablet by ity of (SYNTHROID) 00:00: mouth [place] 112 mcg 00 every Medical tablet morning. Branch liothyronin 2-0 Yes [id number] TAKE 2 Univers e 5 mcg 9-29 TABLETS BY ity of tablet 00:00: MOUTH AT [place] 00 9AM, 2 Medical TABLETS AT Branch 12PM, AND 1 TABLET IN THE EVENING Cholecalcif 2-0 Yes [id number] Take 1 Univers la nena, 9-29 capsule by ity of Vitamin D3, 00:00: mouth [place] (D3-50 00 weekly. Medical CHOLECALCIF Branch LA NENA) 1,250 mcg (50,000 unit) capsule levothyroxi 2-0 Yes [id number] 112ug Take 1 Univers ne 9-29 tablet by ity of (SYNTHROID) 00:00: mouth [place] 112 mcg 00 every Medical tablet morning. Branch liothyronin 2-0 Yes [id number] TAKE 2 Univers e 5 mcg 9-29 TABLETS BY ity of tablet 00:00: MOUTH AT [place] 00 9AM, 2 Medical TABLETS AT [place] 12PM, AND 1 TABLET IN THE EVENING Cholecalcif 2-0 Yes [id number] Take 1 Univers la nena, 9-29 capsule by ity of Vitamin D3, 00:00: mouth [place] (D3-50 00 weekly. Medical CHOLECALCIF Branch [place] NE[place]) 1,250 mcg (50,000 unit) capsule levothyroxi 2-0 Yes [id number] 112ug Take 1 Univers ne 9-29 tablet by ity of (SYNTHROID) 00:00: mouth [place] 112 mcg 00 every Medical tablet morning. Branch liothyronin 2-0 Yes [id number] TAKE 2 Univers e 5 mcg 9-29 TABLETS BY ity of tablet 00:00: MOUTH AT [place] 00 9AM, 2 Medical TABLETS AT Branch 12PM, AND 1 TABLET IN THE EVENING Cholecalcif 2022-0 Yes [id number] Take 1 Univers la nena, 9-29 capsule by ity of Vitamin D3, 00:00: mouth [place] (D3-50 00 weekly. Medical CHOLECALCIF [place] NENA) 1,250 mcg (50,000 unit) capsule levothyroxi 2021-0 Yes [id number] 112ug Take 1 Univers ne 9-29 tablet by ity of (SYNTHROID) 00:00: mouth [place] 112 mcg 00 every Medical tablet morning. Branch liothyronin 2021-0 Yes [id number] TAKE 2 Univers e 5 mcg 9-29 TABLETS BY ity of tablet 00:00: MOUTH AT [place] 00 9AM, 2 Medical TABLETS AT Branch 12PM, AND 1 TABLET IN THE EVENING Cholecalcif 2-0 Yes [id number] Take 1 Univers la nena, 9-29 capsule by ity of Vitamin D3, 00:00: mouth [place] (D3-50 00 weekly. Medical CHOLECALCIF Branch [place]) 1,250 mcg (50,000 unit) capsule Cholecalcif 2-0 Yes [id number] Take 1 Univers la nena, 9-29 capsule by ity of Vitamin D3, 00:00: mouth [place] (D3-50 00 weekly. Medical CHOLECALCIF Branch [place] NE[place]) 1,250 mcg (50,000 unit) capsule Cholecalcif 2-0 Yes [id number] Take 1 Univers la nena, 9-29 capsule by ity of Vitamin D3, 00:00: mouth [place] (D3-50 00 weekly. Medical CHOLECALCIF Branch [place] NE[place]) 1,250 mcg (50,000 unit) capsule Cholecalcif 2-0 Yes [id number] Take 1 Univers la nena, 9-29 capsule by ity of Vitamin D3, 00:00: mouth [place] (D3-50 00 weekly. Medical CHOLECALCIF Branch [place]) 1,250 mcg (50,000 unit) capsule Cholecalcif 2-0 Yes [id number] Take 1 Univers la nena, 9-29 capsule by ity of Vitamin D3, 00:00: mouth [place] (D3-50 00 weekly. Medical CHOLECALCIF Branch [place] NE[place]) 1,250 mcg (50,000 unit) capsule Cholecalcif 2022-0 Yes [id number] Take 1 Univers la nena, 9-29 capsule by ity of Vitamin D3, 00:00: mouth [place] (D3-50 00 weekly. Medical CHOLECALCIF [place] NENA) 1,250 mcg (50,000 unit) capsule Cholecalcif 2021-0 Yes [id number] Take 1 Univers la nena, 9-29 capsule by ity of Vitamin D3, 00:00: mouth [place] (D3-50 00 weekly. Medical CHOLECALCIF Branch [place] NENA) 1,250 mcg (50,000 unit) capsule Cholecalcif 2021-0 Yes [id number] Take 1 Univers la nena, 9-29 capsule by ity of Vitamin D3, 00:00: mouth [place] (D3-50 00 weekly. Medical CHOLECALCIF [place] NENA) 1,250 mcg (50,000 unit) capsule Cholecalcif 2021-0 Yes [id number] Take 1 Univers la nena, 9-29 capsule by ity of Vitamin D3, 00:00: mouth [place] (D3-50 00 weekly. Medical CHOLECALCIF [place] NENA) 1,250 mcg (50,000 unit) capsule Cholecalcif 2021-0 Yes [id number] Take 1 Univers la nena, 9-29 capsule by ity of Vitamin D3, 00:00: mouth [place] (D3-50 00 weekly. Medical CHOLECALCIF [place] NENA) 1,250 mcg (50,000 unit) capsule SYNTHROID 2021-0 Yes [id number] 112ug Take 1 U nivers 112 mcg - tablet by ity of tablet 00:00: mouth [place] 00 every Medical morning. Branch Cholecalcif 0 Yes [id number] Take 1 Univers la nena, 9-29 capsule by ity of Vitamin D3, 00:00: [facility] (D3-50 00 weekly. Medical CHOLECALCIF Branch LA NENA) 1,250 mcg (50,000 unit) capsule levothyroxi 2022- No [id number] 112ug Take 1 [facility] ne --22 tablet by ity of (SYNTHROID) 00:00: 00:[place] 112 mcg 00 :00 every Medical tablet morning. [place] liothyronin 2022- No [id number] TAKE 2 [facility] e 5 mcg 07-24- TABLETS BY ity o f tablet 00:00: 00:00 MOUTH AT [place] 00 :00 9AM, 2 Medical TABLETS AT [place] 12PM, AND 1 TABLET IN THE EVENING levothyroxi 2022-0 2023- No [id number] 112ug Take 1 [facility] ne 07-24- tablet by ity of (SYNTHROID) 00:00: 00:[place] 112 mcg 00 :00 every Medical tablet morning. [place] liothyronin 2022- No [id number] TAKE 2 [facility] e 5 mcg 07-24 TABLETS BY ity o f tablet 00:00: 00:00 MOUTH AT [place] 00 :00 9AM, 2 Medical TABLETS AT [place] 12PM, AND 1 TABLET IN THE EVENING SYNTHROID 2021- No [id number] 112ug Take 1 [facility] 112 mcg 07-24 tablet by ity of tablet 00:00: 00:00 mouth [place] 00 :00 every Medical morning. [place] levothyroxi Yes [id number] TAKE 1 [facility] ne 7-22 TABLET BY ity of (SYNTHROID) 00:00: MOUTH [place] 112 mcg 00 EVERY DAY Medical tablet IN THE [place] MORNING levothyroxi Yes [id number] TAKE 1 [facility] ne 7-22 TABLET BY ity of (SYNTHROID) 00:00: MOUTH [place] 112 mcg 00 EVERY DAY Medical tablet IN THE [place] MORNING levothyroxi Yes [id number] TAKE 1 [facility] ne 7-22 TABLET BY ity of (SYNTHROID) 00:00: MOUTH [place] 112 mcg 00 EVERY DAY Medical tablet IN THE [place] MORNING levothyroxi Yes [id number] TAKE 1 [facility] ne 7-22 TABLET BY ity of (SYNTHROID) 00:00: MOUTH [place] 112 mcg 00 EVERY DAY Medical tablet IN THE [place] MORNING levothyroxi Yes [id number] TAKE 1 [facility] ne 7-22 TABLET BY ity of (SYNTHROID) 00:00: MOUTH [place] 112 mcg 00 EVERY DAY Medical tablet IN THE [place] MORNING levothyroxi Yes [id number] TAKE 1 [facility] ne 7-22 TABLET BY ity of (SYNTHROID) 00:00: MOUTH [place] 112 mcg 00 EVERY DAY Medical tablet IN THE [place] MORNING levothyroxi 2021- No [id number] TAKE 1 [facility] ne 7-22 -29 TABLET BY ity of (SYNTHROID) 00:00: 00:[place] MOUTH [place] 112 mcg 00 :00 EVERY DAY Medical tablet IN THE [place] MORNING NORDITROPIN Yes [id number] INJECT [facility] FLEXPRO 5 3-09 0.6MG INTO ity of mg/1.5 mL 00:00: THE SKIN [place] (3.3 mg/mL) DAILY Medical solution [place] NORDITROPIN Yes [id number] INJECT [facility] FLEXPRO 5 3-09 0.6MG INTO ity of mg/1.5 mL 00:00: THE SKIN [place] (3.3 mg/mL) 00 DAILY Medical solution [place] NORDITROPIN Yes [id number] INJECT [facility] FLEXPRO 5 3-09 0.6MG INTO ity of mg/1.5 mL 00:00: THE [place] (3.3 mg/mL) [id number] FLEXPRO 5 3-09 0.6MG INTO ity of mg/1.5 mL 00:00: THE SKIN [place] (3.3 mg/mL) [facility]ILY [facility] [id number] INJECT [facility] FLEXPRO 5 3-09 0.6MG INTO ity of mg/1.5 mL 00:00: THE SKIN [place] (3.3 mg/mL) [facility]ILY [facility] [id number] INJECT [facility] FLEXPRO 5 3-09 0.6MG INTO ity of mg/1.5 mL 00:00: THE SKIN [place] (3.3 mg/mL) DAILY Medical solution [place] NORDITROPIN Yes [id number] INJECT [facility] FLEXPRO 5 3-09 0.6MG INTO ity of mg/1.5 mL 00:00: THE SKIN [place] (3.3 mg/mL) 00 DAILY Medical solution [place] NORDITROPIN Yes [id number] INJECT [facility] FLEXPRO 5 3-09 0.6MG INTO ity of mg/1.5 mL 00:00: THE SKIN [place] (3.3 mg/mL) 00 DAILY Medical solution [place] NORDITROPIN Yes [id number] INJECT [facility] FLEXPRO 5 3-09 0.6MG INTO ity of mg/1.5 mL 00:00: THE SKIN [place] (3.3 mg/mL) 00 DAILY [facility] [id number] INJECT [facility] FLEXPRO 5 3-09 0.6MG INTO ity of mg/1.5 mL 00:00: THE SKIN [place] (3.3 mg/mL) 00 DAILY Medical solution [facility] NORDITROPIN Yes [id number] INJECT [facility] FLEXPRO 5 3-09 0.6MG INTO ity of mg/1.5 mL 00:00: THE SKIN [place] (3.3 mg/mL) 00 DAILY Medical solution [place] NORDITROPIN Yes [id number] INJECT [facility] FLEXPRO 5 3-09 0.6MG INTO ity of mg/1.5 mL 00:00: THE SKIN [place] (3.3 mg/mL) 00 DAILY [facility] [id number] INJECT [facility] FLEXPRO 5 3-09 0.6MG INTO ity of mg/1.5 mL 00:00: THE SKIN [place] (3.3 mg/mL) 00 DAILY Medical solution [place] NORDITROPIN Yes [id number] INJECT [facility] FLEXPRO 5 3-09 0.6MG INTO ity of mg/1.5 mL 00:00: THE SKIN [place] (3.3 mg/mL) 00 DAILY Medical solution [place] NORDITROPIN Yes [id number] INJECT [facility] FLEXPRO 5 3-09 0.6MG INTO ity of mg/1.5 mL 00:00: THE SKIN [place] (3.3 mg/mL) 00 DAILY Medical solution [place] NORDITROPIN Yes [id number] INJECT [facility] FLEXPRO 5 3-09 0.6MG INTO ity of mg/1.5 mL 00:00: THE SKIN [place] (3.3 mg/mL) 00 DAILY Medical solution [facility] NORDITROPIN 0 Yes [id number] INJECT [facility] FLEXPRO 5 3-09 0.6MG INTO ity of mg/1.5 mL 00:00: THE SKIN [place] (3.3 mg/mL) 00 DAILY Medical solution [facility] NORDITROPIN 2021-0 Yes [id number] INJECT [facility] FLEXPRO 5 3-09 0.6MG INTO ity of mg/1.5 mL 00:00: THE SKIN [place] (3.3 mg/mL) 00 DAILY Medical solution [facility] NORDITROPIN 2021-0 Yes [id number] INJECT [facility] FLEXPRO 5 3-09 0.6MG INTO ity of mg/1.5 mL 00:00: THE SKIN [place] (3.3 mg/mL) 00 DAILY Medical solution [facility] NORDITROPIN Yes [id number] INJECT [facility] FLEXPRO 5 3-09 0.6MG INTO ity of mg/1.5 mL 00:00: THE SKIN [place] (3.3 mg/mL) 00 DAILY Medical solution [facility] NORDITROPIN 2021-0 Yes [id number] INJECT [facility] FLEXPRO 5 3-09 0.6MG INTO ity of mg/1.5 mL 00:00: THE SKIN [place] (3.3 mg/mL) 00 DAILY Medical solution [facility] NORDITROPIN 0 Yes [id number] INJECT [facility] FLEXPRO 5 3-09 0.6MG INTO ity of mg/1.5 mL 00:00: THE SKIN [place] (3.3 mg/mL) 00 DAILY Medical solution [facility] NORDITROPIN 0 Yes [id number] INJECT [facility] FLEXPRO 5 3-09 0.6MG INTO ity of mg/1.5 mL 00:00: THE SKIN [place] (3.3 mg/mL) 00 DAILY Medical solution [facility] NORDITROPIN 0 Yes [id number] INJECT [facility] FLEXPRO 5 3-09 0.6MG INTO ity of mg/1.5 mL 00:00: THE SKIN [place] (3.3 mg/mL) 00 DAILY Medical solution [facility] NORDITROPIN 2021-0 Yes [id number] INJECT [facility] FLEXPRO 5 3-09 0.6MG INTO ity of mg/1.5 mL 00:00: THE SKIN [place] (3.3 mg/mL) 00 DAILY Medical solution [facility] NORDITROPIN 2021-0 Yes [id number] INJECT [facility] FLEXPRO 5 3-09 0.6MG INTO ity of mg/1.5 mL 00:00: THE SKIN [place] (3.3 mg/mL) 00 DAILY Medical solution [facility] NORDITROPIN 2021-0 Yes [id number] INJECT [facility] FLEXPRO 5 3-09 0.6MG INTO ity of mg/1.5 mL 00:00: THE SKIN [place] (3.3 mg/mL) 00 DAILY Medical solution [place] NORDITROPIN Yes [id number] INJECT [facility] FLEXPRO 5 3-09 0.6MG INTO ity of mg/1.5 mL 00:00: THE SKIN [place] (3.3 mg/mL) 00 DAILY Medical solution [place] pantoprazol 2022- No [id number] 40mg Take 1 [facility] e 11-21 tablet (40 [facility] (Protonix) 00:00: 05:59 mg total) 40 MG EC 00 :00 by mouth 1 tablet (one) time each day before breakfast. Do not crush, chew, or split. levothyroxi Yes [id number] 112ug Take 1 [facility] ne 1-20 tablet by ity of (SYNTHROID) 00:00: mouth [place] 112 mcg 00 every Medical tablet morning. [place] levothyroxi 2021- No [id number] 112ug Take 1 [facility] ne 1-20 07-22 tablet by ity of (SYNTHROID) 00:00: 00:[place] 112 mcg 00 :00 every Medical tablet morning. [place] liothyronin 2020-10 Yes [id number] TAKE 2 [facility] e 5 mcg 1-08 TABLETS BY ity of tablet 00:00: MOUTH AT [place] 00 9AM, 2 Medical TABLETS AT [place] 12PM, AND 1 TABLET IN THE EVENING liothyronin 2020-10 Yes [id number] TAKE 2 [facility] e 5 mcg 1-08 TABLETS BY ity of tablet 00:00: MOUTH AT [place] 00 9AM, 2 Medical TABLETS AT [place] 12PM, AND 1 TABLET IN THE EVENING liothyronin 2020-10 Yes [id number] TAKE 2 [facility] e 5 mcg 1-08 TABLETS BY ity of tablet 00:00: MOUTH AT [place] 00 9AM, 2 Medical TABLETS AT Branch 12PM, AND 1 TABLET IN THE EVENING liothyronin 2020-10 Yes [id number] TAKE 2 [facility] e 5 mcg 1-08 TABLETS BY ity of tablet 00:00: MOUTH AT [place] 00 9AM, 2 Medical TABLETS AT [place] 12PM, AND 1 TABLET IN THE EVENING liothyronin 2020-10 Yes [id number] TAKE 2 [facility] e 5 mcg 1-08 TABLETS BY ity of tablet 00:00: MOUTH AT [place] 00 9AM, 2 Medical TABLETS AT [place] 12PM, AND 1 TABLET IN THE EVENING liothyronin 2020-10 Yes [id number] TAKE 2 [facility] e 5 mcg 1-08 TABLETS BY ity of tablet 00:00: MOUTH AT [place] 00 9AM, 2 Medical TABLETS AT [place] 12PM, AND 1 TABLET IN THE EVENING liothyronin 2020-10 Yes [id number] TAKE 2 [facility] e 5 mcg 1-08 TABLETS BY ity of tablet 00:00: MOUTH AT [place] 00 9AM, 2 Medical TABLETS AT [place] 12PM, AND 1 TABLET IN THE EVENING liothyronin 2020-10 Yes [id number] TAKE 2 [facility] e 5 mcg 1-08 TABLETS BY ity of tablet 00:00: MOUTH AT [place] 00 9AM, 2 Medical TABLETS AT [place] 12PM, AND 1 TABLET IN THE EVENING liothyronin 2020-10- No [id number] TAKE 2 [facility] e 5 mcg 1-08 09-29 TABLETS BY ity o f tablet 00:00: 00:00 MOUTH AT [place] 00 :00 9AM, 2 Medical TABLETS AT [place] 12PM, AND 1 TABLET IN THE EVENING Cholecalcif Yes [id number] Take 1 [facility] la nena, 9-10 capsule by ity of Vitamin D3, 00:00: mouth [place] (D3-50 00 weekly. Medical CHOLECALCIF Branch [place]) 1,250 mcg (50,000 unit) capsule Cholecalcif 2020-0 Yes [id number] Take 1 [facility] [place], 9-10 capsule by ity of Vitamin D3, 00:00: mouth [place] (D3-50 00 weekly. Medical CHOLECALCIF [facility] [place]) 1,250 mcg (50,000 unit) capsule Cholecalcif 2020-0 Yes [id number] Take 1 [facility] [place], 9-10 capsule by ity of Vitamin D3, 00:00: mouth [place] (D3-50 00 weekly. Medical CHOLECALCIF [facility] [place]) 1,250 mcg (50,000 unit) capsule Cholecalcif 2020-0 Yes [id number] Take 1 [facility] [place], 9-10 capsule by ity of Vitamin D3, 00:00: mouth [place] (D3-50 00 weekly. Medical CHOLECALCIF [facility] [place]) 1,250 mcg (50,000 unit) capsule Cholecalcif 2020-0 Yes [id number] Take 1 [facility] [place], 9-10 capsule by ity of Vitamin D3, 00:00: mouth [place] (D3-50 00 weekly. Medical CHOLECALCIF [place]) 1,250 mcg (50,000 unit) capsule Cholecalcif 0 Yes [id number] Take 1 [facility] [place], 9-10 capsule by ity of Vitamin D3, 00:00: mouth [place] (D3-50 00 weekly. Medical CHOLECALCIF [place]) 1,250 mcg (50,000 unit) capsule Cholecalcif 0 Yes [id number] Take 1 [facility] [place], 9-10 capsule by ity of Vitamin D3, 00:00: mouth [place] (D3-50 00 weekly. Medical CHOLECALCIF [place]) 1,250 mcg (50,000 unit) capsule Cholecalcif 0 Yes [id number] Take 1 [facility] [place], 9-10 capsule by ity of Vitamin D3, 00:00: mouth [place] (D3-50 00 weekly. [facility] CHOLECALCIF [place]) 1,250 mcg (50,000 unit) capsule Cholecalcif 2021- No [id number] Take 1 [facility] [place], 9-10 - capsule by ity of Vitamin D3, 00:00: 00:00 [place] (D3-50 00 :00 weekly. [facility] CHOLECALCIF [place]) 1,250 mcg (50,000 unit) capsule Cholecalcif 2021- No [id number] Take 1 [facility] la nena, 9-10 07-24 capsule by ity of Vitamin D3, 00:00: 00:[place] (D3-50 00 :00 weekly. Medical CHOLECALCIF [place]) 1,250 mcg (50,000 unit) capsule SYNTHROID 2021- No [id number] 112ug Take 1 [facility] 112 mcg 7 01-20 tablet by ity of tablet 00:00: 00:00 mouth [place] 00 :00 every Medical morning. Branch Somatropin 2021- No [id number] .6mg inject 0.6 [facility] (NORDITROPI 3-31 03-09 mg under ity of N FLEXPRO) 00:00: 00:00 the skin [place] 10 mg/1.5 00 :00 daily. Medical mL (6.7 Branch mg/mL) injection Insulin 2018-10 Yes Use as [facility] [place], 2-11 directed ity of Disposable, 00:00: to inject [place] (NOVOFINE 00 Norditropi Medi ang 32) 32 n daily. Branch gauge x Dx E 23.0 1/4" Ndle Insulin 2018-10 Yes Use as [facility], 2-11 directed ity of Disposable, 00:00: to inject [place] (NOVOFINE 00 Norditropi Medi ang 32) 32 n daily. Branch gauge x Dx E 23.0 /4" Ndle Insulin 2018-10 Yes Use as [facility] Pant[place], 2-11 directed ity of Disposable, 00:00: to inject [place] (NOVOFINE 00 Norditropi Medi ang 32) 32 n daily. Branch gauge x Dx E 23.0 /4" Ndle Insulin 2018-10 Yes Use as [facility] Pant[place], 2-11 directed ity of Disposable, 00:00: to inject [place] (NOVOFINE 00 Norditropi Medi ang 32) 32 n daily. Branch gauge x Dx E 23.0 10/29" Ndle Insulin 2018-10 Yes Use as [facility] Pant[place] Burn, 2-11 directed ity of Disposable, 00:00: to inject [place] (NOVOFINE 00 Norditropi Medi ang 32) 32 n daily. Branch gauge x Dx E 23.0 /4" Ndle Insulin 2018-10 Yes Use as [facility] Panther Burn, 2-11 directed ity of Disposable, 00:00: to inject [place] (NOVOFINE 00 Norditropi Medi ang 32) 32 n daily. Branch gauge x Dx E 23.0 /4" Ndle Insulin 2018-10 Yes Use as [facility] Pant[place] Burn, 2-11 directed ity of Disposable, 00:00: to inject [place] (NOVOFINE 00 Norditropi Medi ang 32) 32 n daily. Branch gauge x Dx E 23.0 /4" Ndle Insulin 2018-10 Yes Use as [facility] Pant[place] Burn, 2-11 directed ity of Disposable, 00:00: to inject [place] (NOVOFINE 00 Norditropi Medi ang 32) 32 n daily. Branch gauge x Dx E 23.0 /4" Ndle Insulin 2018-10 Yes Use as [facility] Panther Burn, 2-11 directed ity of Disposable, 00:00: to inject [place] (NOVOFINE 00 Norditropi Medi ang 32) 32 n daily. Branch gauge x Dx E 23.0 1/4" Ndle Insulin 2019 Yes Use as [facility] Panther Burn, 2-11 directed ity of Disposable, 00:00: to inject [place] (NOVOFINE 00 Norditropi Medi ang 32) 32 n daily. Branch gauge x Dx E 23.0 1/4" Ndle Insulin 2018-10 Yes Use as [facility] Panther Burn, 2-11 directed ity of Disposable, 00:00: to inject [place] (NOVOFINE 00 Norditropi Medi ang 32) 32 n daily. Branch gauge x Dx E 23.0 1/4" Ndle Insulin 2018- Yes Use as [facility] Panther Burn, 2-11 directed ity of Disposable, 00:00: to inject [place] (NOVOFINE 00 Norditropi Medi ang 32) 32 n daily. Branch gauge x Dx E 23.0 1/4" Ndle Insulin 2018-10 Yes Use as [facility] Panther Burn, 2-11 directed ity of Disposable, 00:00: to inject [place] (NOVOFINE 00 Norditropi Medi ang 32) 32 n daily. Branch gauge x Dx E 23.0 1/4" Ndle Insulin 2018-10 Yes Use as [facility] Panther Burn, 2-11 directed ity of Disposable, 00:00: to inject [place] (NOVOFINE 00 Norditropi Medi ang 32) 32 n daily. Branch gauge x Dx E 23.0 1/4" Ndle Insulin 2018-10 Yes Use as [facility] Panther Burn, 2-11 directed ity of Disposable, 00:00: to inject [place] (NOVOFINE 00 Norditropi Medi ang 32) 32 n daily. Branch gauge x Dx E 23.0 1/4" Ndle Insulin 2018- Yes Use as [facility] Panther Burn, 2-11 directed ity of Disposable, 00:00: to inject [place] (NOVOFINE 00 Norditropi Medi ang 32) 32 n daily. Branch gauge x Dx E 23.0 1/4" Ndle Insulin 2019- Yes Use as [facility] Panther Burn, 2-11 directed ity of Disposable, 00:00: to inject [place] (NOVOFINE 00 Norditropi Medi ang 32) 32 n daily. Branch gauge x Dx E 23.0 1/4" Ndle Insulin 2018-10 Yes Use as [facility] Panther Burn, 2-11 directed ity of Disposable, 00:00: to inject [place] (NOVOFINE 00 Norditropi Medi ang 32) 32 n daily. Branch gauge x Dx E 23.0 1/4" Ndle Insulin 2018-10 Yes Use as [facility] Panther Burn, 2-11 directed ity of Disposable, 00:00: to inject [place] (NOVOFINE 00 Norditropi Medi ang 32) 32 n daily. Branch gauge x Dx E 23.0 /4" Ndle Insulin 2018-10 Yes Use as [facility] Panther Burn, 2-11 directed ity of Disposable, 00:00: to inject [place] (NOVOFINE 00 Norditropi Medi ang 32) 32 n daily. Branch gauge x Dx E 23.0 /4" Ndle Insulin 2018-10 Yes Use as [facility] Panther Burn, 2-11 directed ity of Disposable, 00:00: to inject [place] (NOVOFINE 00 Norditropi Medi ang 32) 32 n daily. Branch gauge x Dx E 23.0 /4" Ndle Insulin 2018-10 Yes Use as [facility] Panther Burn, 2-11 directed ity of Disposable, 00:00: to inject [place] (NOVOFINE 00 Norditropi Medi ang 32) 32 n daily. Branch gauge x Dx E 23.0 /4" Ndle Insulin 2018-10 Yes Use as [facility] Panther Burn, 2-11 directed ity of Disposable, 00:00: to inject [place] (NOVOFINE 00 Norditropi Medi ang 32) 32 n daily. Branch gauge x Dx E 23.0 /4" Ndle Insulin 2018-10 Yes Use as [facility] Panther Burn, 2-11 directed ity of Disposable, 00:00: to inject [place] (NOVOFINE 00 Norditropi Medi ang 32) 32 n daily. Branch gauge x Dx E 23.0 1/4" Ndle Insulin 2018-10 Yes Use as [facility] Panther Burn, 2-11 directed ity of Disposable, 00:00: to inject [place] (NOVOFINE 00 Norditropi Medi ang 32) 32 n daily. Branch gauge x Dx E 23.0 1/4" Ndle Insulin 2018-10 Yes Use as [facility] Panther Burn, 2-11 directed ity of Disposable, 00:00: to inject [place] (NOVOFINE 00 Norditropi Medi ang 32) 32 n daily. Branch gauge x Dx E 23.0 10/29" Ndle Insulin 2018-10 Yes Use as [facility] Panther Burn, 2-11 directed ity of Disposable, 00:00: to inject [place] (NOVOFINE 00 Norditropi Medi ang 32) 32 n daily. Branch gauge x Dx E 23.0 10/29" Ndle Insulin 2018-10 Yes Use as [facility] Panther Burn, 2-11 directed ity of Disposable, 00:00: to inject [place] (NOVOFINE 00 Norditropi Medi ang 32) 32 n daily. Branch gauge x Dx E 23.0 10/29" Ndle Insulin 2018-10 Yes Use as [facility] Panther Burn, 2-11 directed ity of Disposable, 00:00: to inject [place] (NOVOFINE 00 Norditropi Medi ang 32) 32 n daily. Branch gauge x Dx E 23.0 10/29" Ndle Insulin 2018-10 Yes Use as [facility] Panther Burn, 2-11 directed ity of Disposable, 00:00: to inject [place] (NOVOFINE 00 Norditropi Medi agn 32) 32 n daily. Branch gauge x Dx E 23.0 10/29" Ndle Insulin 2018-10 Yes Use as [facility] Panther Burn, 2-11 directed ity of Disposable, 00:00: to inject [place] (NOVOFINE 00 Norditropi Medi ang 32) 32 n daily. Branch gauge x Dx E 23.0 10/29" Ndle levothyroxi 2018-10 2020- No [id number] 112ug Take 1 [facility] ne 0-02 04-14 tablet by ity of (SYNTHROID) 00:00: 00:00 [place] 112 mcg 00 :00 every Medical tablet morning. Branch liothyronin 2018-10 2020- No 10 mcg -9 Univers e (CYTOMEL) 0-02 04-14 am, 10 ity o f 5 mcg 00:00: 00:00 mcg- 12 [place] tablet 00 :00 pm, 5- mcg Medical evening Branch Somatropin 2018-10 2020- No .6mg inject 0.6 [facility] (NORDITROPI 0-02 03-31 mg under ity of N FLEXPRO) 00:00: 16:43 the skin [place] 10 mg/1.5 00 :55 daily. Medical mL (6.7 Branch mg/mL) injection liraglutide Yes [id number] 3mg inject 3 [facility] (SAXENDA) 3 7-31 mg under ity of mg/0.5 mL 00:00: the skin [place] (18 mg/3 00 daily. Medical mL) PnIj Start with Branc h 0.6 mg daily and increase by 0.6 mg every week till you reach 3 mg daily liraglutide Yes [id number] 3mg inject 3 [facility] (SAXENDA) 3 7-31 mg under ity of mg/0.5 mL 00:00: the skin [place] (18 mg/3 00 daily. Medical mL) PnIj Start with Branc h 0.6 mg daily and increase by 0.6 mg every week till you reach 3 mg daily liraglutide Yes [id number] 3mg inject 3 [facility] (SAXENDA) 3 7-31 mg under ity of mg/0.5 mL 00:00: the skin [place] (18 mg/3 00 daily. Medical mL) PnIj Start with Branc h 0.6 mg daily and increase by 0.6 mg every week till you reach 3 mg daily liraglutide Yes [id number] 3mg inject 3 [facility] (SAXENDA) 3 7-31 mg under ity of mg/0.5 mL 00:00: the skin [place] (18 mg/3 00 daily. Medical mL) PnIj Start with Branc h 0.6 mg daily and increase by 0.6 mg every week till you reach 3 mg daily liraglutide Yes [id number] 3mg inject 3 [facility] (SAXENDA) 3 7-31 mg under ity of mg/0.5 mL 00:00: the skin [place] (18 mg/3 00 daily. Medical mL) PnIj Start with Branc h 0.6 mg daily and increase by 0.6 mg every week till you reach 3 mg daily liraglutide Yes [id number] 3mg inject 3 [facility] (SAXENDA) 3 7-31 mg under ity of mg/0.5 mL 00:00: the skin [place] (18 mg/3 00 daily. Medical mL) PnIj Start with Branc h 0.6 mg daily and increase by 0.6 mg every week till you reach 3 mg daily liraglutide Yes [id number] 3mg inject 3 [facility] (SAXENDA) 3 7-31 mg under ity of mg/0.5 mL 00:00: the skin [place] (18 mg/3 00 daily. Medical mL) PnIj Start with Branc h 0.6 mg daily and increase by 0.6 mg every week till you reach 3 mg daily liraglutide Yes [id number] 3mg inject 3 [facility] (SAXENDA) 3 7-31 mg under ity of mg/0.5 mL 00:00: the skin [place] (18 mg/3 00 daily. Medical mL) PnIj Start with Branc h 0.6 mg daily and increase by 0.6 mg every week till you reach 3 mg daily liraglutide Yes [id number] 3mg inject 3 [facility] (SAXENDA) 3 7-31 mg under ity of mg/0.5 mL 00:00: the skin [place] (18 mg/3 00 daily. Medical mL) PnIj Start with Branc h 0.6 mg daily and increase by 0.6 mg every week till you reach 3 mg daily liraglutide Yes [id number] 3mg inject 3 [facility] (SAXENDA) 3 7-31 mg under ity of mg/0.5 mL 00:00: the skin [place] (18 mg/3 00 daily. Medical mL) PnIj Start with Branc h 0.6 mg daily and increase by 0.6 mg every week till you reach 3 mg daily liraglutide Yes [id number] 3mg inject 3 [facility] (SAXENDA) 3 7-31 mg under ity of mg/0.5 mL 00:00: the skin [place] (18 mg/3 00 daily. Medical mL) PnIj Start with Branc h 0.6 mg daily and increase by 0.6 mg every week till you reach 3 mg daily liraglutide Yes [id number] 3mg inject 3 Univers (SAXENDA) 3 7-31 mg under ity of mg/0.5 mL 00:00: the skin [place] (18 mg/3 00 daily. Medical mL) PnIj Start with Branc h 0.6 mg daily and increase by 0.6 mg every week till you reach 3 mg daily liraglutide Yes [id number] 3mg inject 3 [facility] (SAXENDA) 3 7-31 mg under ity of mg/0.5 mL 00:00: the skin [place] (18 mg/3 00 daily. Medical mL) PnIj Start with Branc h 0.6 mg daily and increase by 0.6 mg every week till you reach 3 mg daily liraglutide Yes [id number] 3mg inject 3 [facility] (SAXENDA) 3 7-31 mg under ity of mg/0.5 mL 00:00: the skin [place] (18 mg/3 00 daily. Medical mL) PnIj Start with Branc h 0.6 mg daily and increase by 0.6 mg every week till you reach 3 mg daily liraglutide Yes [id number] 3mg inject 3 [facility] (SAXENDA) 3 7-31 mg under ity of mg/0.5 mL 00:00: the skin [place] (18 mg/3 00 daily. Medical mL) PnIj Start with Branc h 0.6 mg daily and increase by 0.6 mg every week till you reach 3 mg daily liraglutide Yes [id number] 3mg inject 3 [facility] (SAXENDA) 3 7-31 mg under ity of mg/0.5 mL 00:00: the [place] (18 mg/3 00 daily. Medical mL) PnIj Start with Branc h 0.6 mg daily and increase by 0.6 mg every week till you reach 3 mg daily liraglutide Yes [id number] 3mg inject 3 [facility] (SAXENDA) 3 7-31 mg under ity of mg/0.5 mL 00:00: the [place] (18 mg/3 00 daily. Medical mL) PnIj Start with Branc h 0.6 mg daily and increase by 0.6 mg every week till you reach 3 mg daily liraglutide Yes [id number] 3mg inject 3 [facility] (SAXENDA) 3 7-31 mg under ity of mg/0.5 mL 00:00: the [place] (18 mg/3 00 daily. Medical mL) PnIj Start with Branc h 0.6 mg daily and increase by 0.6 mg every week till you reach 3 mg daily liraglutide 2022- No [id number] 3mg inject 3 [facility] (SAXENDA) 3 7-31 02-22 mg under ity of mg/0.5 mL 00:00: 00:00 the skin [place] (18 mg/3 00 :00 daily. Medical mL) PnIj Start with Branc h 0.6 mg daily and increase by 0.6 mg every week till you reach 3 mg daily liraglutide 2022- No [id number] 3mg inject 3 [facility] (SAXENDA) 3 7- 02-22 mg under ity of mg/0.5 mL 00:00: 00:00 the skin [place] (18 mg/3 00 :00 daily. Medical mL) PnIj Start with Branc h 0.6 mg daily and increase by 0.6 mg every week till you reach 3 mg daily liraglutide 2022- No [id number] 3mg inject 3 [facility] (SAXENDA) 3 7- 02-22 mg under ity of mg/0.5 mL 00:00: 00:00 the skin [place] (18 mg/3 00 :00 daily. Medical mL) PnIj Start with Branc h 0.6 mg daily and increase by 0.6 mg every week till you reach 3 mg daily liraglutide 2022- No [id number] 3mg inject 3 [facility] ([facility]) 3 7- 02-22 mg under ity of mg/0.5 mL 00:00: 00:00 the skin Bhavin as (18 mg/3 00 :00 daily. Medical mL) PnIj Start with Branc [...] times per Branch week (hot flashes). estradiol 2017- Yes 1{patch Apply 1 Un jeanette (VIVELLE-DO [...] times per Branch week (hot flashes). estradiol 2017- Yes 1{patch Apply 1 Un jeanette (VIVELLE-DO 7-14 } Patch to ity of T) 0.075 00:00: skin 2 [place] mg/24 hr 00 (two) Medical patch times per Branch week (hot flashes). estradiol 2017- Yes 1{patch Apply 1 Un jeanette (VIVELLE-DO 7-14 } Patch to ity of T) 0.075 00:00: skin 2 [place] mg/24 hr 00 (two) Medical patch times per Branch week (hot flashes). estradiol 2017- Yes 1{patch Apply 1 Un jeanette (VIVELLE-DO [...] times per Branch week (hot flashes). estradiol 2017- Yes 1{patch Apply 1 Un jeanette (VIVELLE-DO 7-14 } Patch to ity of T) 0.075 00:00: skin 2 [place] mg/24 hr 00 (two) Medical patch times per Branch week (hot flashes). estradiol 2017- Yes 1{patch Apply 1 Un jeanette (VIVELLE-DO 7-14 } Patch to ity of T) 0.075 00:00: skin 2 [place] mg/24 hr 00 (two) Medical patch times per Branch week (hot flashes). estradiol 2017-0 Yes 1{patch Apply 1 Un jeanette (VIVELLE-DO 7-14 } Patch to ity of T) 0.075 00:00: skin 2 [place] mg/24 hr 00 (two) Medical patch times per [facility] week (hot flashes). estradiol 2017- Yes 1{patch Apply 1 Un jeanette (VIVELLE-DO 7-14 } Patch to ity of T) 0.075 00:00: skin 2 [place] mg/24 hr 00 (two) Medical patch times per [facility] week (hot flashes). estradiol 2017- Yes 1{patch Apply 1 Un jeanette (VIVELLE-DO 7-14 } Patch to ity of T) 0.075 00:00: skin 2 [place] mg/24 hr 00 (two) Medical patch times per [facility] week (hot flashes). estradiol 2017- Yes 1{patch Apply 1 Un jeanette (VIVELLE-DO 7-14 } Patch to ity of T) 0.075 00:00: skin 2 [place] mg/24 hr 00 (two) Medical patch times per [facility] week (hot flashes). estradiol 2017- Yes 1{patch Apply 1 Un jeanette (VIVELLE-DO 7-14 } Patch to ity of T) 0.075 00:00: skin 2 [place] mg/24 hr 00 (two) Medical patch times per [facility] week (hot flashes). estradiol 2017- Yes 1{patch Apply 1 Un jeanette (VIVELLE-DO 7-14 } Patch to ity of T) 0.075 00:00: skin 2 [place] mg/24 hr 00 (two) Medical patch times per [facility] week (hot flashes). estradiol 2017- Yes 1{patch Apply 1 Un jeanette (VIVELLE-DO 7-14 } Patch to ity of T) 0.075 00:00: skin 2 [place] mg/24 hr 00 (two) Medical patch times per [facility] week (hot flashes). estradiol 2017- Yes 1{patch Apply 1 Un jeanette (VIVELLE-DO 7-14 } Patch to ity of T) 0.075 00:00: skin 2 [place] mg/24 hr 00 (two) Medical patch times per [facility] week (hot flashes). estradiol 2017-0 Yes 1{patch Apply 1 Un jeanette (VIVELLE-DO 7-14 } Patch to ity of T) 0.075 00:00: skin 2 [place] mg/24 hr 00 (two) Medical patch times per [facility] week (hot flashes). estradiol 2017-0 Yes 1{patch Apply 1 Un jeanette (VIVELLE-DO 7-14 } Patch to ity of T) 0.075 00:00: skin 2 [place] mg/24 hr 00 (two) Medical patch times per [facility] week (hot flashes). estradiol 2017-0 Yes 1{patch Apply 1 Un jeanette (VIVELLE-DO 7-14 } Patch to ity of T) 0.075 00:00: skin 2 [place] mg/24 hr 00 (two) Medical patch times per [facility] week (hot flashes). estradiol 2017- Yes 1{patch Apply 1 Un jeanette (VIVELLE-DO 7-14 } Patch to ity of T) 0.075 00:00: skin 2 [place] mg/24 hr 00 (two) Medical patch times per [facility] week (hot flashes). estradiol 2017- Yes 1{patch Apply 1 Un jeanette (VIVELLE-DO 7-14 } Patch to ity of T) 0.075 00:00: skin 2 [place] mg/24 hr 00 (two) Medical patch times per [facility] week (hot flashes). estradiol 2017- Yes 1{patch Apply 1 Un jeanette (VIVELLE-DO 7-14 } Patch to ity of T) 0.075 00:00: skin 2 [place] mg/24 hr 00 (two) Medical patch times per [facility] week (hot flashes). estradiol 2017- Yes 1{patch Apply 1 Un jeanette (VIVELLE-DO 7-14 } Patch to ity of T) 0.075 00:00: skin 2 [place] mg/24 hr 00 (two) Medical patch times per [facility] week (hot flashes). estradiol 2017- Yes 1{patch Apply 1 Un jeanette (VIVELLE-DO 7-14 } Patch to ity of T) 0.075 00:00: skin 2 [place] mg/24 hr 00 (two) Medical patch times per [facility] week (hot flashes). estradiol 2017- Yes 1{patch Apply 1 Un jeanette (VIVELLE-DO 7-14 } Patch to ity of T) 0.075 00:00: skin 2 [place] mg/24 hr 00 (two) Medical patch times per [facility] week (hot flashes). estradiol 2017-0 Yes 1{patch Apply 1 Un jeanette (VIVELLE-DO 7-14 } Patch to ity of T) 0.075 00:00: skin 2 [place] mg/24 hr 00 (two) Medical patch times per [facility] week (hot flashes). estradiol 2017- Yes 1{patch Apply 1 Un jeanette (VIVELLE-DO [...] } Sprays in ity of 0.6 % [place] 00:00: each nostril Medical daily. [place] Olopatadine 2013-10 Yes 2{spray Use 2 Un jeanette (PATANASE) 2-16 } Sprays in ity of 0.6 % [place] 00:00: each nostril Medical daily. [place] Olopatadine 2013-10 Yes 2{spray Use 2 Un jeanette (PATANASE) 2-16 } Sprays in ity of 0.6 % [place] 00:00: each nostril Medical daily. [place] Olopatadine 2013-10 Yes 2{spray Use 2 Un jeanette (PATANASE) 2-16 } Sprays in ity of 0.6 % [place] 00:00: each nostril Medical daily. [place] Olopatadine 2013-10 Yes 2{spray Use 2 Un jeanette (PATANASE) 2-16 } Sprays in ity of 0.6 % [place] 00:00: each nostril Medical daily. [place] Olopatadine 2013-10 Yes 2{spray Use 2 Un jeanette (PATANASE) 2-16 } Sprays in ity of 0.6 % [place] 00:00: each 00 nostril Medical daily. [place] Olopatadine 2013-10 Yes 2{spray Use 2 Un jeanette (PATANASE) 2-16 } Sprays in ity of 0.6 % [place] 00:00: each nostril Medical daily. [place] Olopatadine 2013-10 Yes 2{spray Use 2 Un jeanette (PATANASE) 2-16 } Sprays in ity of 0.6 % [place] 00:00: each [place] 00 nostril Medical daily. [place] Olopatadine 2013-10 Yes 2{spray Use 2 Un jeanette (PATANASE) 2-16 } Sprays in ity of 0.6 % [place] 00:00: each [place] 00 nostril Medical daily. [place] Olopatadine 2013-10 Yes 2{spray Use 2 Un jeanette (PATANASE) 2-16 } Sprays in ity of 0.6 % [place] 00:00: each 00 nostril Medical daily. [place] Olopatadine 2013-10 Yes 2{spray Use 2 Un jeanette (PATANASE) 2-16 } Sprays in ity of 0.6 % [place] 00:00: each nostril Medical daily. [place] Olopatadine 2013-10 Yes 2{spray Use 2 Un jeanette (PATANASE) 2-16 } Sprays in ity of 0.6 % [place] 00:00: each nostril Medical daily. [place] Olopatadine 2013-10 Yes 2{spray Use 2 Un jeanette (PATANASE) 2-16 } Sprays in ity of 0.6 % [place] 00:00: each nostril Medical daily. [place] Olopatadine 2013-10 Yes 2{spray Use 2 Un jeanette (PATANASE) 2-16 } Sprays in ity of 0.6 % [place] 00:00: each nostril Medical daily. [place] Olopatadine 2013-10 Yes 2{spray Use 2 Un jeanette (PATANASE) 2-16 } Sprays in ity of 0.6 % [place] 00:00: each [place] nostril Medical daily. [place] Olopatadine 2013-10 Yes 2{spray Use 2 Un jeanette (PATANASE) 2-16 } Sprays in ity of 0.6 % [place] 00:00: each [place] 00 nostril Medical daily. [place] Olopatadine 2013-10 Yes 2{spray Use 2 Un jeanette (PATANASE) 2-16 } Sprays in ity of 0.6 % [place] 00:00: each [place] 00 nostril Medical daily. [place] Olopatadine 2013-10 Yes 2{spray Use 2 Un jeanette (PATANASE) 2-16 } Sprays in ity of 0.6 % [place] 00:00: each [place] 00 nostril Medical daily. [place] Olopatadine 2013-10- No 2{spray Use 2 U nivers (PATANASE) 2-16 -22 } Sprays in ity of 0.6 % [place] 00:00: 00:00 each [place] 00 :00 nostril Medical daily. [place] Olopatadine 2013-10- No 2{spray Use 2 U nivers (PATANASE) 2-16 -22 } Sprays in ity of 0.6 % [place] 00:00: 00:00 each [place] 00 :00 nostril Medical daily. [place] Olopatadine 2013-10- No 2{spray Use 2 U nivers (PATANASE) 2-16 - } Sprays in ity of 0.6 % [place] 00:00: 00:00 each [place] 00 :00 nostril Medical daily. [place] Saurabhopatadine 2013-10- No 2{spray Use 2 U nivers (PATANASE) 2-16 -22 } Sprays in ity of 0.6 % [place] 00:00: 00:00 each [place] 00 :00 nostril Medical daily. Caitlyn odom 2013-10 Yes Apply to U nivers ne 1-19 area(s) 2 ity of ([place]) 00:00: (two) [place] 0.025 % 00 times Medical cream daily. [place] odom 2013-10 Yes Apply to Un jeanette ne 1-19 area(s) 2 ity of (KENALOG) 00:00: (two) [place] 0.025 % 00 times Medical cream daily. [place] odom 2013-10 Yes Apply to Un jeanette ne 1-19 area(s) 2 ity of (KENALOG) 00:00: (two) [place] 0.025 % 00 times Medical cream daily. [place] odom 2013-10 Yes Apply to Un jeanette ne 1-19 area(s) 2 ity of (KENALOG) 00:00: (two) [place] 0.025 % 00 times Medical cream daily. [place] odom 2013-10 Yes Apply to Un jeanette ne 1-19 area(s) 2 ity of (KENALOG) 00:00: (two) [place] 0.025 % 00 times Medical cream daily. [place] odom 2013-10 Yes Apply to U nivers ne 1-19 area(s) 2 ity of (KENALOG) 00:00: (two) [place] 0.025 % 00 times Medical cream daily. [place] odom 2013-10 Yes Apply to Un jeanette ne 1-19 area(s) 2 ity of (KENALOG) 00:00: (two) [place] 0.025 % 00 times Medical cream daily. [place] odom 2013-10 Yes Apply to Un jeanette ne 1-19 area(s) 2 ity of (KENALOG) 00:00: (two) [place] 0.025 % 00 times Medical cream daily. [place] odom 2013-10 Yes Apply to Un jeanette ne 1-19 area(s) 2 ity of (KENALOG) 00:00: (two) [place] 0.025 % 00 times Medical cream daily. [place] odom 2013-10 Yes Apply to Un jeanette ne 1-19 area(s) 2 ity of (KENALOG) 00:00: (two) [place] 0.025 % 00 times Medical cream daily. [place] odom 2013-10 Yes Apply to U nivers ne 1-19 area(s) 2 ity of (KENALOG) 00:00: (two) [place] 0.025 % 00 times Medical cream daily. [place] odom 2013-10 Yes Apply to Un jeanette ne 1-19 area(s) 2 ity of (KENALOG) 00:00: (two) [place] 0.025 % 00 times Medical cream daily. [place] odom 2013-10 Yes Apply to Un jeanette ne 1-19 area(s) 2 ity of (KENALOG) 00:00: (two) [place] 0.025 % 00 times Medical cream daily. [place] odom 2013-10 Yes Apply to Un jeanette ne 1-19 area(s) 2 ity of (KENALOG) 00:00: (two) [place] 0.025 % 00 times Medical cream daily. [place] odom 2013-10 Yes Apply to Un jeanette ne 1-19 area(s) 2 ity of (KENALOG) 00:00: (two) [place] 0.025 % 00 times Medical cream daily. [place] odom 2013-10 Yes Apply to U nivers ne 1-19 area(s) 2 ity of (KENALOG) 00:00: (two) [place] 0.025 % 00 times Medical cream daily. [place] odom 2013-10 Yes Apply to Un jeanette ne 1-19 area(s) 2 ity of (KENALOG) 00:00: (two) [place] 0.025 % 00 times Medical cream daily. [place] odom 2013-10 Yes Apply to Un jeanette ne 1-19 area(s) 2 ity of (KENALOG) 00:00: (two) [place] 0.025 % 00 times Medical cream daily. [place] odom 2013-10 Yes Apply to Un jeanette ne 1-19 area(s) 2 ity of (KENALOG) 00:00: (two) [place] 0.025 % 00 times Medical cream daily. [place] odom 2013-10 Yes Apply to Un jeanette ne 1-19 area(s) 2 ity of (KENALOG) 00:00: (two) [place] 0.025 % 00 times Medical cream daily. [place] odom 2013-10 Yes Apply to U nivers ne 1-19 area(s) 2 ity of (KENALOG) 00:00: (two) [place] 0.025 % 00 times Medical cream daily. [place] odom 2013-10 Yes Apply to Un jeanette ne 1-19 area(s) 2 ity of (KENALOG) 00:00: (two) [place] 0.025 % 00 times Medical cream daily. [place] odom 2013-10 Yes Apply to Un jeanette ne 1-19 area(s) 2 ity of (KENALOG) 00:00: (two) [place] 0.025 % 00 times Medical cream daily. [place]ait[place] odom 2013-10 Yes Apply to Un jeanette ne 1-19 area(s) 2 ity of (KENALOG) 00:00: (two) [place] 0.025 % 00 times Medical cream daily. [place] odom 2013-10 Yes Apply to Un jeanette ne 1-19 area(s) 2 ity of (KENALOG) 00:00: (two) [place] 0.025 % 00 times Medical cream daily. [place] lyamcinolo 2013-10 Yes Apply to U nivers ne [...] 0.025 % 00 times Medical cream daily. [place] triamcinolo 2013-10 Yes Apply to Un jeanette ne 1-19 area(s) 2 ity of (KENALOG) 00:00: (two) [place] 0.025 % 00 times Medical cream daily. [facility] aliyahamcinolo 2013-10 Yes Apply to U nivers ne 1-19 area(s) 2 ity of (KENALOG) 00:00: (two) [place] 0.025 % 00 times Medical cream daily. [facility] mometasone 2013-10 Yes 1{spray Use 1 Uni vers (NASONEX) 1-04 } [place] in ity of 50 00:00: each [place] [...] Use 1 Uni vers (NASONEX) 1-04 } [place] in ity of 50 00:00: each [place] [...] Use 1 Uni vers (NASONEX) 1-04 } [place] in ity of 50 00:00: each [place] [...] Use 1 Uni vers (NASONEX) 1-04 } [place] in ity of 50 00:00: each [place] [...] Use 1 Uni vers (NASONEX) 1-04 } [place] in ity of 50 00:00: each [place] [...] Use 1 Uni vers (NASONEX) 1-04 } [place] in ity of 50 00:00: each [place] [...] Use 1 Uni vers (NASONEX) 1-04 } [place] in ity of 50 00:00: each [place] [...] Use 1 Uni vers (NASONEX) 1-04 } [place] in ity of 50 00:00: each [place] [...] Use 1 Uni vers (NASONEX) 1-04 } [place] in ity of 50 00:00: each [place] mcg/actuati 00 nostril 2 Med ical on nasal (two) Branch spray times daily. albuterol 2013-10 Yes 2{puff} Inhale 2 U nivers (PROAIR 1-04 Puffs ity of HFA) 90 00:00: every 6 [place] mcg/actuati 00 (six) Medical on inhaler hours as Branc h needed for Wheezing, Shortness of Breath or Chest tightness. albuterol 2013-10 Yes 2{puff} Inhale 2 U nivers (PROAIR 1-04 Puffs ity of HFA) 90 00:00: every 6 [place] mcg/actuati 00 (six) Medical on inhaler hours as Branc h needed for Wheezing, Shortness of Breath or Chest tightness. albuterol 2013-10 Yes 2{puff} Inhale 2 U nivers (PROAIR 1-04 Puffs ity of HFA) 90 00:00: every 6 [place] mcg/actuati 00 (six) Medical on inhaler hours as Branc h needed for Wheezing, Shortness of Breath or Chest tightness. albuterol 2013-10 Yes 2{puff} Inhale 2 U nivers (PROAIR 1-04 Puffs ity of HFA) 90 00:00: every 6 [place] mcg/actuati 00 (six) Medical on inhaler hours as Branc h needed for Wheezing, Shortness of Breath or Chest tightness. albuterol 2013-10 Yes 2{puff} Inhale 2 U nivers (PROAIR 1-04 Puffs ity of HFA) 90 00:00: every 6 [place] mcg/actuati 00 (six) Medical on inhaler hours as Branc h needed for Wheezing, Shortness of Breath or Chest tightness. albuterol 2013-10 Yes 2{puff} Inhale 2 U nivers (PROAIR 1-04 Puffs ity of HFA) 90 00:00: every 6 [place] mcg/actuati 00 (six) Medical on inhaler hours as Branc h needed for Wheezing, Shortness of Breath or Chest tightness. albuterol 2013-10 Yes 2{puff} Inhale 2 U nivers (PROAIR 1-04 Puffs ity of HFA) 90 00:00: every 6 [place] mcg/actuati 00 (six) Medical on inhaler hours as Branc h needed for Wheezing, Shortness of Breath or Chest tightness. albuterol 2013-10 Yes 2{puff} Inhale 2 U nivers (PROAIR 1-04 Puffs ity of HFA) 90 00:00: every 6 [place] mcg/actuati 00 (six) Medical on inhaler hours as Branc h needed for Wheezing, Shortness of Breath or Chest tightness. albuterol 2013-10 Yes 2{puff} Inhale 2 U nivers (PROAIR 1-04 Puffs ity of HFA) 90 00:00: every 6 [place] mcg/actuati 00 (six) Medical on inhaler hours as Branc h needed for Wheezing, Shortness of Breath or Chest tightness. albuterol 2013-10 Yes 2{puff} Inhale 2 U nivers (PROAIR 1-04 Puffs ity of HFA) 90 00:00: every 6 [place] mcg/actuati 00 (six) Medical on inhaler hours as Branc h needed for Wheezing, Shortness of Breath or Chest tightness. albuterol 2013-10 Yes 2{puff} Inhale 2 U nivers (PROAIR 1-04 Puffs ity of HFA) 90 00:00: every 6 [place] mcg/actuati 00 (six) Medical on inhaler hours as Branc h needed for Wheezing, Shortness of Breath or Chest tightness. albuterol 2013-10 Yes 2{puff} Inhale 2 U nivers (PROAIR 1-04 Puffs ity of HFA) 90 00:00: every 6 [place] mcg/actuati 00 (six) Medical on inhaler hours as Branc h needed for Wheezing, Shortness of Breath or Chest tightness. albuterol 2013-10 Yes 2{puff} Inhale 2 U nivers (PROAIR 1-04 Puffs ity of HFA) 90 00:00: every 6 [place] mcg/actuati 00 (six) Medical on inhaler hours as Branc h needed for Wheezing, Shortness of Breath or Chest tightness. albuterol 2013-10 Yes 2{puff} Inhale 2 U nivers (PROAIR 1-04 Puffs ity of HFA) 90 00:00: every 6 [place] mcg/actuati 00 (six) Medical on inhaler hours as Branc h needed for Wheezing, Shortness of Breath or Chest tightness. mometasone 2013-10 Yes 1{spray Use 1 Uni vers (NASONEX) 1-04 } [place] in ity of 50 00:00: each [place] [...] Use 1 Uni vers (NASONEX) 1-04 } [place] in ity of 50 00:00: each [place] [...] Use 1 Uni vers (NASONEX) 1-04 } [place] in ity of 50 00:00: each [place] [...] Use 1 Uni vers (NASONEX) 1-04 } [place] in ity of 50 00:00: each [place] [...] Use 1 Uni vers (NASONEX) 1-04 } [place] in ity of 50 00:00: each [place] [...] Use 1 Uni vers (NASONEX) 1-04 } [place] in ity of 50 00:00: each [place] [...] Use 1 Uni vers (NASONEX) 1-04 } [place] in ity of 50 00:00: each [place] [...] Use 1 Uni vers (NASONEX) 1-04 } [place] in ity of 50 00:00: each [place] [...] Use 1 Uni vers (NASONEX) 1-04 } [place] in ity of 50 00:00: each [place] mcg/actuati 00 nostril 2 Med ical on nasal (two) [facility] spray times daily. albuterol 2013-10 Yes 2{puff} Inhale 2 U nivers (PROAIR 1-04 Puffs ity of HFA) 90 00:00: every 6 [place] mcg/actuati 00 (six) Medical on inhaler hours as Branc h needed for Wheezing, Shortness of Breath or Chest tightness. mometasone 2013-10- No 1{spray Use 1 Un jeanette (NASONEX) 10-29 } [place] in ity o f 50 00:00: 00:00 each [place] mcg/actuati 00 :00 nostril 2 Med ical on nasal (two) [facility] spray times daily. mometasone 2013-10- No 1{spray Use 1 Un jeanette (NASONEX) 10-29 } [place] in ity o f 50 00:00: 00:00 each [place] mcg/actuati 00 :00 nostril 2 Med ical on nasal (two) [facility] spray times daily. mometasone 2013-10- No 1{spray Use 1 Un jeanette (NASONEX) 10-29 } [place] in ity o f 50 00:00: 00:00 each [place] mcg/actuati 00 :00 nostril 2 Med ical on nasal (two) [facility] spray times daily. mometasone 2013-10- No 1{spray Use 1 Un jeanette (NASONEX) 10-29 } [place] in ity o f 50 00:00: 00:00 each [place] mcg/actuati 00 :00 nostril 2 Med ical on nasal (two) [facility] spray times daily. fluconazole 2013-10 Yes [id number] Take one [facility] (DIFLUCAN) 0-29 tab po ity of 150 mg 00:00: today then [place] tablet 00 repeat in Medical 3 days. [facility] fluconazole 2013-10 Yes [id number] Take one [facility] (DIFLUCAN) 0-29 tab po ity of 150 mg 00:00: today then [place] tablet 00 repeat in Medical 3 days. [facility] fluconazole 2013-10 Yes [id number] Take one [facility] (DIFLUCAN) 0-29 tab po ity of 150 mg 00:00: today then [place] tablet 00 repeat in Medical 3 days. [facility] fluconazole 2013-10 Yes [id number] Take one [facility] (DIFLUCAN) 0-29 tab po ity of 150 mg 00:00: today then [place] tablet 00 repeat in Medical 3 days. [facility] fluconazole 2013-10 Yes [id number] Take one [facility] (DIFLUCAN) 0-29 tab po ity of 150 mg 00:00: today then [place] tablet 00 repeat in Medical 3 days. [facility] fluconazole 2013-10 Yes [id number] Take one [facility] (DIFLUCAN) 0-29 tab po ity of 150 mg 00:00: today then [place] tablet 00 repeat in Medical 3 days. [facility] fluconazole 2013-10 Yes [id number] Take one [facility] (DIFLUCAN) 0-29 tab po ity of 150 mg 00:00: today then [place] tablet 00 repeat in Medical 3 days. [facility] fluconazole 2013-10 Yes [id number] Take one [facility] (DIFLUCAN) 0-29 tab po ity of 150 mg 00:00: today then [place] tablet 00 repeat in Medical 3 days. [place] fluconazole 2013-10 Yes [id number] Take one [facility] (DIFLUCAN) 0-29 tab po ity of 150 mg 00:00: today then [place] tablet 00 repeat in Medical 3 days. [place] fluconazole 2013-10 Yes [id number] Take one [facility] (DIFLUCAN) 0-29 tab po ity of 150 mg 00:00: today then [place] tablet 00 repeat in Medical 3 days. [place] fluconazole 2013-10 Yes [id number] Take one [facility] (DIFLUCAN) 0-29 tab po ity of 150 mg 00:00: today then [place] tablet 00 repeat in Medical 3 days. [place] fluconazole 2013-10 Yes [id number] Take one [facility] (DIFLUCAN) 0-29 tab po ity of 150 mg 00:00: today then [place] tablet 00 repeat in Medical 3 days. [place] fluconazole 2013-10 Yes [id number] Take one [facility] (DIFLUCAN) 0-29 tab po ity of 150 mg 00:00: today then [place] tablet 00 repeat in Medical 3 days. [place] fluconazole 2013-10 Yes [id number] Take one [facility] (DIFLUCAN) 0-29 tab po ity of 150 mg 00:00: today then [place] tablet 00 repeat in Medical 3 days. [place] fluconazole 2013-10 Yes [id number] Take one [facility] (DIFLUCAN) 0-29 tab po ity of 150 mg 00:00: today then [place] tablet 00 repeat in Medical 3 days. [place] fluconazole 2013-10 Yes [id number] Take one [facility] (DIFLUCAN) 0-29 tab po ity of 150 mg 00:00: today then [place] tablet 00 repeat in Medical 3 days. [place] fluconazole 2013-10 Yes [id number] Take one [facility] (DIFLUCAN) 0-29 tab po ity of 150 mg 00:00: today then [place] tablet 00 repeat in Medical 3 days. [place] fluconazole 2013-10 Yes [id number] Take one [facility] (DIFLUCAN) 0-29 tab po ity of 150 mg 00:00: today then [place] tablet 00 repeat in Medical 3 days. [place] fluconazole 2013-10- No [id number] Take one [facility] (DIFLUCAN) 0--22 tab po ity of 150 mg 00:00: 00:00 [place] tablet 00 :00 repeat in Medical 3 days. [place] fluconazole 2013-10- No [id number] Take one [facility] (DIFLUCAN) 0- tab po ity of 150 mg 00:00: 00:00 [place] tablet 00 :00 repeat in Medical 3 days. [place] fluconazole 2013-10- No [id number] Take one [facility] (DIFLUCAN) 0-- tab po ity of 150 mg 00:00: 00:00 [place] tablet 00 :00 repeat in Medical 3 days. [place] fluconazole 2013-10- No [id number] Take one [facility] (DIFLUCAN) 0- tab po ity of 150 mg 00:00: 00:00 [place] tablet [place] :00 repeat in Medical 3 days. [place] Aimovig Aimovig No Aimovig [facility] Autoinjecto Autoinjecto Autoinject Medical r 140 mg/mL r 140 mg/mL or 140 subcutaneou subcutaneou mg/mL s s subcutaneo auto-inject auto-inject us or INJECT or INJECT auto-injec UNDER THE UNDER THE tor INJECT SKIN ONCE A SKIN ONCE A UNDER THE MONTH MONTH SKIN ONCE DIRECTED DIRECTED A MONTH DIRECTED albuterol albuterol No albuterol [facility] sulfate HFA sulfate HFA sulfate Medical 90 90 HFA 90 mcg/actuati mcg/actuati mcg/actuat on aerosol on aerosol ion inhaler inhaler aerosol inhaler Botox 100 Botox 100 No Botox 100 [facility] unit unit unit Medical injection injection injection cholecalcif cholecalcif No cholecalci [facility] la nena la nena ferol Medical (vitamin (vitamin (vitamin D3) 1,250 D3) 1,250 D3) 1,250 mcg (50,000 mcg (50,000 mcg unit) unit) (50,000 capsule capsule unit) capsule clobetasol clobetasol No clobetasol [facility] 0.05 % 0.05 % 0.05 % Medical topical topical topical foam APPLY foam APPLY foam APPLY A THIN A THIN A THIN LAYER TO LAYER TO LAYER TO DRY SCALP DRY SCALP DRY SCALP TWICE DAILY TWICE DAILY TWICE DAILY COMPOUNDED COMPOUNDED No COMPOUNDED [facility] MEDICATION MEDICATION MEDICATION Medical Biest Biest Biest (50:50) (50:50) (50:50) cream 1mg cream 1mg cream 1mg mg/ml Apply mg/ml Apply mg/ml 1/2 ml QD 1/2 ml QD Apply 1/2 ml QD COMPOUNDED COMPOUNDED No COMPOUNDED [facility] MEDICATION MEDICATION MEDICATION Medical CPD CPD CPD -TESTOST -TESTOST -TESTOST 8MG/ML VCRM 8MG/ML VCRM 8MG/ML CREAM APPLY CREAM APPLY VCRM CREAM 1/2 ML (2 1/2 ML (2 APPLY 1/2 CLICKS) TO CLICKS) TO ML (2 INNER THIGH INNER THIGH CLICKS) TO ONCE DAILY ONCE DAILY INNER THIGH ONCE DAILY COMPOUNDED COMPOUNDED No COMPOUNDED [facility] MEDICATION MEDICATION MEDICATION Medical CPD CPD CPD -TESTOST -TESTOST -TESTOST 8MG/ML VCRM 8MG/ML VCRM 8MG/ML APPLY 1/2 APPLY 1/2 VCRM APPLY ML (2 ML (2 1/2 ML (2 CLICKS) TO CLICKS) TO CLICKS) TO INNER THIGH INNER THIGH INNER ONCE DAILY ONCE DAILY THIGH ONCE DAILY estradiol estradiol No estradiol [facility] 0.1 mg/24 0.1 mg/24 0.1 mg/24 Medical hr hr hr semiweekly semiweekly semiweekly transdermal transdermal transderma patch patch l patch TOPICALLY TOPICALLY TOPICALLY APPLY 1 APPLY 1 APPLY 1 PATCH TWICE PATCH TWICE PATCH A WEEK A WEEK TWICE A WEEK Genotropin Genotropin No Genotropin [facility] 12 mg/mL 12 mg/mL 12 mg/mL Med ical (36 (36 (36 unit/mL) unit/mL) unit/mL) subcutaneou subcutaneou subcutaneo s cartridge s cartridge us INJECT INJECT cartridge 0.6MG 0.6MG INJECT SUBCUTANEOU SUBCUTANEOU 0.6MG SLY ONCE SLY ONCE SUBCUTANEO DAILY ON 7 DAILY ON 7 USLY ONCE DAYS PER DAYS PER DAILY ON 7 WEEK WEEK DAYS PER WEEK hers anti hers anti No hers anti [facility] age 0.0125% age 0.0125% age M edical Apply 1-2 Apply 1-2 0.0125% pumps to pumps to Apply 1-2 face each face each pumps to evening. evening. face each evening. hydrocodone hydrocodone No hydrocodon [facility] 5 5 e 5 Medical mg-acetamin mg-acetamin mg-acetami ophen 325 ophen 325 nophen 325 mg tablet mg tablet mg tablet hydrocortis hydrocortis No hydrocorti [facility] one 2.5 % one 2.5 % sone 2.5 % Medical topical topical topical cream cream cream hydroxyzine hydroxyzine No hydroxyzin [facility] HCl 10 mg HCl 10 mg e HCl 10 M edical tablet tablet mg tablet liothyronin liothyronin No liothyroni [facility] e 5 mcg e 5 mcg ne 5 mcg Medic al tablet TAKE tablet TAKE tablet 2 TABLETS 2 TABLETS TAKE 2 BY MOUTH AT BY MOUTH AT TABLETS BY 9AM, 2 9AM, 2 MOUTH AT TABLETS AT TABLETS AT 9AM, 2 12PM, AND 1 12PM, AND 1 TABLETS AT TABLET IN TABLET IN 12PM, AND THE EVENING THE EVENING 1 TABLET IN THE EVENING Norditropin Norditropin No Norditropi [facility] FlexPro 10 FlexPro 10 n FlexPro Medical mg/1.5 mL mg/1.5 mL 10 mg/1.5 (6.7 mg/mL) (6.7 mg/mL) mL (6.7 subcutaneou subcutaneou mg/mL) s pen s pen subcutaneo injector injector us pen INJECT INJECT injector 0.6MG 0.6MG INJECT SUBCUTANEOU SUBCUTANEOU 0.6MG SLY EVERY SLY EVERY SUBCUTANEO DAY DAY USLY EVERY DAY Norditropin Norditropin No Norditropi [facility] FlexPro 5 FlexPro 5 n FlexPro Medical mg/1.5 mL mg/1.5 mL 5 mg/1.5 (3.3 mg/mL) (3.3 mg/mL) mL (3.3 subcutaneou subcutaneou mg/mL) s pen s pen subcutaneo injector injector us pen INJECT INJECT injector 0.6MG 0.6MG INJECT SUBCUTANEOU SUBCUTANEOU 0.6MG SLY DAILY SLY DAILY SUBCUTANEO USLY DAILY Novofine 32 Novofine 32 No Novofine [facility] 32 gauge x 32 gauge x 32 32 Me dical 10/29" needle 10/29" needle gauge x USE USE 10/29" DIRECTED DIRECTED needle USE DIRECTED Premarin Premarin No Premarin Divine via 0.625 0.625 0.625 Medical mg/gram mg/gram mg/gram vaginal vaginal vaginal cream cream cream INSERT 1GM INSERT 1GM INSERT 1GM VAGINALLY VAGINALLY VAGINALLY WITH WITH WITH APPLICATOR APPLICATOR APPLICATOR TWICE TWICE TWICE WEEKLY WEEKLY WEEKLY promethazin promethazin No promethazi [facility] e-DM 6.25 e-DM 6.25 ne-DM 6.25 Medical mg-15 mg/5 mg-15 mg/5 mg-15 mg/5 mL oral mL oral mL oral syrup syrup syrup Symbicort Symbicort No Symbicort [facility] 160 mcg-4.5 160 mcg-4.5 160 M edical mcg/actuati mcg/actuati mcg-4.5 on HFA on HFA mcg/actuat aerosol aerosol ion HFA inhaler inhaler aerosol inhaler Synthroid Synthroid No Synthroid [facility] 112 mcg 112 mcg 112 mcg Medica l tablet TAKE tablet TAKE tablet 1 TABLET BY 1 TABLET BY TAKE 1 MOUTH EVERY MOUTH EVERY TABLET BY MORNING. MORNING. MOUTH EVERY MORNING. Testosteron Testosteron No Testostero [facility] e Cream e Cream ne Cream Medic al Testosteron Testosteron Testostero e e ne Testosteron Testosteron No Testostero [facility] e Cream e Cream ne Cream Medic al Testosteron Testosteron Testostero e e ne Testosteron Testosteron Test[facility] e cream e cream ne cream 0.5 mg/ML- 0.5 mg/ML- 0.5 2 clicks 2 clicks mg/ML- 2 (1ml) (1ml) clicks applied to applied to (1ml) each inner each inner applied to thigh daily thigh daily each inner thigh daily tretinoin tretinoin No tretinoin [facility] 0.05 % 0.05 % 0.05 % Medical topical topical topical cream APPLY cream APPLY cream A THIN A THIN APPLY A LAYER TO LAYER TO THIN LAYER FACE EVERY FACE EVERY TO FACE OTHER NIGHT OTHER NIGHT EVERY AT BEDTIME AT BEDTIME OTHER OR DAILY AT OR DAILY AT NIGHT AT BEDTIME BEDTIME BEDTIME OR WITH WITH DAILY AT GRADUAL GRADUAL BEDTIME ONSET ONSET WITH GRADUAL ONSET acetaminoph acetaminoph No acetaminop [facility] en 300 en 300 hen 300 Medical mg-codeine mg-codeine mg-codeine 30 mg 30 mg 30 mg tablet TAKE tablet TAKE tablet 2 TABLETS 2 TABLETS TAKE 2 BY MOUTH BY MOUTH TABLETS BY 3-4 TIMES A 3-4 TIMES A MOUTH 3-4 DAY DAY TIMES A NEEDED FOR NEEDED FOR DAY PAIN PAIN NEEDED FOR PAIN Aimovig Aimovig No Aimovig [facility] Autoinjecto Autoinjecto Autoinject Medical r 140 mg/mL r 140 mg/mL or 140 subcutaneou subcutaneou mg/mL s s subcutaneo auto-inject auto-inject us or INJECT or INJECT auto-injec SUBCUTANEOU SUBCUTANEOU tor INJECT SLY SLY SUBCUTANEO DIRECTED DIRECTED USLY ONCE A ONCE A DIRECTED MONTH MONTH ONCE A MONTH albuterol albuterol No albuterol [facility] sulfate HFA sulfate HFA sulfate Medical 90 90 HFA 90 mcg/actuati mcg/actuati mcg/actuat on aerosol on aerosol ion inhaler inhaler aerosol inhaler Botox 100 Botox 100 No Botox 100 [facility] unit unit unit Medical injection injection injection cholecalcif cholecalcif No cholecalci [facility] la nena la nena ferol Medical (vitamin (vitamin (vitamin D3) 1,250 D3) 1,250 D3) 1,250 mcg (50,000 mcg (50,000 mcg unit) unit) (50,000 capsule capsule unit) TAKE 1 TAKE 1 capsule CAPSULE BY CAPSULE BY TAKE 1 MOUTH ONE MOUTH ONE CAPSULE BY TIME PER TIME PER MOUTH ONE WEEK WEEK TIME PER WEEK COMPOUNDED COMPOUNDED No COMPOUNDED [facility] MEDICATION MEDICATION MEDICATION Medical Biest Biest Biest (50:50) (50:50) (50:50) cream 1mg cream 1mg cream 1mg mg/ml Apply mg/ml Apply mg/ml 1/2 ml QD 1/2 ml QD Apply 1/2 ml QD COMPOUNDED COMPOUNDED No COMPOUNDED [facility] MEDICATION MEDICATION MEDICATION Medical CPD CPD CPD -TESTOST -TESTOST -TESTOST 8MG/ML VCRM 8MG/ML VCRM 8MG/ML APPLY 1/2 APPLY 1/2 VCRM APPLY ML (2 ML (2 1/2 ML (2 CLICKS) TO CLICKS) TO CLICKS) TO INNER THIGH INNER THIGH INNER ONCE DAILY ONCE DAILY THIGH ONCE DAILY COMPOUNDED COMPOUNDED No COMPOUNDED [facility] MEDICATION MEDICATION MEDICATION Medical Testosteron Testosteron Testostero e 8 mg/mL e 8 mg/mL ne 8 mg/mL cream Apply cream Apply cream 1/2 mL (2 1/2 mL (2 Apply 1/2 clicks) clicks) mL (2 topically topically clicks) to inner to inner topically thighs once thighs once to inner daily daily thighs once daily COMPOUNDED COMPOUNDED No COMPOUNDED [facility] MEDICATION MEDICATION MEDICATION Medical CPD CPD CPD -TESTOST -TESTOST -TESTOST 8MG/ML VCRM 8MG/ML VCRM 8MG/ML CREAM APPLY CREAM APPLY VCRM CREAM 1/2 ML (2 1/2 ML (2 APPLY 1/2 CLICKS) TO CLICKS) TO ML (2 INNER THIGH INNER THIGH CLICKS) TO ONCE DAILY ONCE DAILY INNER THIGH ONCE DAILY cyclobenzap cyclobenzap No cyclobenza [facility] rine 5 mg rine 5 mg ally 5 mg Medical tablet TAKE tablet TAKE tablet 1 TABLET BY 1 TABLET BY TAKE 1 MOUTH THREE MOUTH THREE TABLET BY TIMES A DAY TIMES A DAY MOUTH NEEDED NEEDED THREE FOR MUSCLE FOR MUSCLE TIMES A SAPSMS SAPSMS DAY NEEDED FOR MUSCLE SAPSMS estradiol estradiol No estradiol [facility] 0.1 mg/24 0.1 mg/24 0.1 mg/24 Medical hr hr hr semiweekly semiweekly semiweekly transdermal transdermal transderma patch patch l patch TOPICALLY TOPICALLY TOPICALLY APPLY 1 APPLY 1 APPLY 1 PATCH TWICE PATCH TWICE PATCH A WEEK A WEEK TWICE A WEEK fluconazole fluconazole No fluconazol [facility] 200 mg 200 mg e 200 mg Medical tablet Take tablet Take tablet 1 tablet PO 1 tablet PO Take 1 q72h x 2 q72h x 2 tablet PO doses doses q72h x 2 doses hydrocortis hydrocortis No hydrocorti [facility] one 2.5 % one 2.5 % sone 2.5 % Medical topical topical topical cream cream cream hydroxyzine hydroxyzine No hydroxyzin [facility] HCl 10 mg HCl 10 mg e HCl 10 M edical tablet TAKE tablet TAKE mg tablet 1 TABLET BY 1 TABLET BY TAKE 1 MOUTH THREE MOUTH THREE TABLET BY TIMES A TIMES A MOUTH WEEK WEEK THREE NEEDED FOR NEEDED FOR TIMES A ITCH ITCH WEEK NEEDED FOR ITCH liothyronin liothyronin No liothyroni [facility] e 5 mcg e 5 mcg ne 5 mcg Medic al tablet TAKE tablet TAKE tablet 2 TABLETS 2 TABLETS TAKE 2 BY MOUTH AT BY MOUTH AT TABLETS BY 9AM, 2 9AM, 2 MOUTH AT TABLETS AT TABLETS AT 9AM, 2 12PM, AND 1 12PM, AND 1 TABLETS AT TABLET IN TABLET IN 12PM, AND THE EVENING THE EVENING 1 TABLET IN THE EVENING Macrobid Macrobid No 1capsul Q12H Macrobid [facility] 100 mg 100 mg e(s) 100 mg Medical capsule capsule capsule Take 1 Take 1 Take 1 capsule capsule capsule every 12 every 12 every 12 hours by hours by hours by oral route oral route oral route for 7 days. for 7 days. for 7 days. methylpredn methylpredn No methylpred [facility] isolone 4 isolone 4 nisolone 4 Medical mg tablets mg tablets mg tablets in a dose in a dose in a dose pack TAKE 6 pack TAKE 6 pack TAKE TABLETS ON TABLETS ON 6 TABLETS DAY 1 DAY 1 ON DAY 1 DIRECTED ON DIRECTED ON PACKAGE AND PACKAGE AND DIRECTED DECREASE BY DECREASE BY ON PACKAGE 1 TAB EACH 1 TAB EACH AND DAY FOR A DAY FOR A DECREASE TOTAL OF 6 TOTAL OF 6 BY 1 TAB DAYS DAYS EACH DAY FOR A TOTAL OF 6 DAYS Norditropin Norditropin No Norditropi [facility] FlexPro 5 FlexPro 5 n FlexPro Medical mg/1.5 mL mg/1.5 mL 5 mg/1.5 (3.3 mg/mL) (3.3 mg/mL) mL (3.3 subcutaneou subcutaneou mg/mL) s pen s pen subcutaneo injector injector us pen INJECT INJECT injector 0.6MG 0.6MG INJECT SUBCUTANEOU SUBCUTANEOU 0.6MG SLY DAILY SLY DAILY SUBCUTANEO USLY DAILY Novofine 32 Novofine 32 No Novofine [facility] 32 gauge x 32 gauge x 32 32 Me dical 10/29" needle 10/29" needle gauge x USE USE 10/29" DIRECTED DIRECTED needle USE DIRECTED pantoprazol pantoprazol No pantoprazo [facility] e 40 mg e 40 mg le 40 mg Medic al tablet,xander tablet,xander tablet,del yed release yed release ayed TAKE 1 TAKE 1 release TABLET BY TABLET BY TAKE 1 MOUTH EVERY MOUTH EVERY TABLET BY DAY BEFORE DAY BEFORE MOUTH BREAKFAST BREAKFAST EVERY DAY DO NOT DO NOT BEFORE CRUSH CHEW CRUSH CHEW BREAKFAST OR SPLIT OR SPLIT DO NOT CRUSH CHEW OR SPLIT Premarin Premarin No Premarin Divine via 0.625 0.625 0.625 Medical mg/gram mg/gram mg/gram vaginal vaginal vaginal cream cream cream INSERT 1GM INSERT 1GM INSERT 1GM VAGINALLY VAGINALLY VAGINALLY WITH WITH WITH APPLICATOR APPLICATOR APPLICATOR TWICE TWICE TWICE WEEKLY WEEKLY WEEKLY promethazin promethazin No promethazi [facility] e-DM 6.25 e-DM 6.25 ne-DM 6.25 Medical mg-15 mg/5 mg-15 mg/5 mg-15 mg/5 mL oral mL oral mL oral syrup syrup syrup Symbicort Symbicort No Symbicort [facility] 160 mcg-4.5 160 mcg-4.5 160 M edical mcg/actuati mcg/actuati mcg-4.5 on HFA on HFA mcg/actuat aerosol aerosol ion HFA inhaler inhaler aerosol PLEASE SEE PLEASE SEE inhaler ATTACHED ATTACHED PLEASE SEE FOR FOR ATTACHED DETAILED DETAILED FOR DIRECTIONS DIRECTIONS DETAILED DIRECTIONS Synthroid Synthroid No Synthroid [facility] 112 mcg 112 mcg 112 mcg Medica l tablet TAKE tablet TAKE tablet 1 TABLET BY 1 TABLET BY TAKE 1 MOUTH EVERY MOUTH EVERY TABLET BY DAY IN THE DAY IN THE MOUTH MORNING MORNING EVERY DAY IN THE MORNING tacrolimus tacrolimus No tacrolimus [facility] 0.1 % 0.1 % 0.1 % Medical topical topical topical ointment ointment ointment APPLY TO APPLY TO APPLY TO RED AREAS RED AREAS RED AREAS ON FACE ON FACE ON FACE TWICE A DAY TWICE A DAY TWICE A UNTIL UNTIL DAY UNTIL RESOLVED RESOLVED RESOLVED Testosteron Testosteron No Testostero [facility] e Cream e Cream ne Cream Medic al Testosteron Testosteron Testostero e e ne Testosteron Testosteron No Testostero [facility] e Cream e Cream ne Cream Medic al Testosteron Testosteron Testostero e e ne Testosteron Testosteron Testostero e cream e cream ne cream 0.5 mg/ML- 0.5 mg/ML- 0.5 2 clicks 2 clicks mg/ML- 2 (1ml) (1ml) clicks applied to applied to (1ml) each inner each inner applied to thigh daily thigh daily each inner thigh daily tretinoin tretinoin No tretinoin [facility] 0.05 % 0.05 % 0.05 % Medical topical topical topical cream APPLY cream APPLY cream A THIN A THIN APPLY A LAYER TO LAYER TO THIN LAYER FACE EVERY FACE EVERY TO FACE OTHER NIGHT OTHER NIGHT EVERY AT BEDTIME AT BEDTIME OTHER OR DAILY AT OR DAILY AT NIGHT AT BEDTIME BEDTIME BEDTIME OR WITH WITH DAILY AT GRADUAL GRADUAL BEDTIME ONSET ONSET WITH GRADUAL ONSET acetaminoph acetaminoph No acetaminop [facility] en 300 en 300 hen 300 Medical mg-codeine mg-codeine mg-codeine 30 mg 30 mg 30 mg tablet TAKE tablet TAKE tablet 2 TABLETS 2 TABLETS TAKE 2 BY MOUTH BY MOUTH TABLETS BY 3-4 TIMES A 3-4 TIMES A MOUTH 3-4 DAY DAY TIMES A NEEDED FOR NEEDED FOR DAY PAIN PAIN NEEDED FOR PAIN Aimovig Aimovig No Aimovig [facility] Autoinjecto Autoinjecto Autoinject Medical r 140 mg/mL r 140 mg/mL or 140 subcutaneou subcutaneou mg/mL s s subcutaneo auto-inject auto-inject us or INJECT or INJECT auto-injec SUBCUTANEOU SUBCUTANEOU tor INJECT SLY SLY SUBCUTANEO DIRECTED DIRECTED USLY ONCE A ONCE A DIRECTED MONTH MONTH ONCE A MONTH albuterol albuterol No albuterol [facility] sulfate HFA sulfate HFA sulfate Medical 90 90 HFA 90 mcg/actuati mcg/actuati mcg/actuat on aerosol on aerosol ion inhaler inhaler aerosol inhaler Botox 100 Botox 100 No Botox 100 [facility] unit unit unit Medical injection injection injection cholecalcif cholecalcif No cholecalci [facility] la nena la nena ferol Medical (vitamin (vitamin (vitamin D3) 1,250 D3) 1,250 D3) 1,250 mcg (50,000 mcg (50,000 mcg unit) unit) (50,000 capsule capsule unit) TAKE 1 TAKE 1 capsule CAPSULE BY CAPSULE BY TAKE 1 MOUTH ONE MOUTH ONE CAPSULE BY TIME PER TIME PER MOUTH ONE WEEK WEEK TIME PER WEEK COMPOUNDED COMPOUNDED No COMPOUNDED [facility] MEDICATION MEDICATION MEDICATION Medical Biest Biest Biest (50:50) (50:50) (50:50) cream 1mg cream 1mg cream 1mg mg/ml Apply mg/ml Apply mg/ml 1/2 ml QD 1/2 ml QD Apply 1/2 ml QD COMPOUNDED COMPOUNDED No COMPOUNDED [facility] MEDICATION MEDICATION MEDICATION Medical CPD CPD CPD -TESTOST -TESTOST -TESTOST 8MG/ML VCRM 8MG/ML VCRM 8MG/ML APPLY 1/2 APPLY 1/2 VCRM APPLY ML (2 ML (2 1/2 ML (2 CLICKS) TO CLICKS) TO CLICKS) TO INNER THIGH INNER THIGH INNER ONCE DAILY ONCE DAILY THIGH ONCE DAILY COMPOUNDED COMPOUNDED No COMPOUNDED [facility] MEDICATION MEDICATION MEDICATION Medical Testosteron Testosteron Testostero e 8 mg/mL e 8 mg/mL ne 8 mg/mL cream Apply cream Apply cream 1/2 mL (2 1/2 mL (2 Apply 1/2 clicks) clicks) mL (2 topically topically clicks) to inner to inner topically thighs once thighs once to inner daily daily thighs once daily COMPOUNDED COMPOUNDED No COMPOUNDED [facility] MEDICATION MEDICATION MEDICATION Medical CPD CPD CPD -TESTOST -TESTOST -TESTOST 8MG/ML VCRM 8MG/ML VCRM 8MG/ML CREAM APPLY CREAM APPLY VCRM CREAM 1/2 ML (2 1/2 ML (2 APPLY 1/2 CLICKS) TO CLICKS) TO ML (2 INNER THIGH INNER THIGH CLICKS) TO ONCE DAILY ONCE DAILY INNER THIGH ONCE DAILY cyclobenzap cyclobenzap No cyclobenza [facility] rine 5 mg rine 5 mg ally 5 mg Medical tablet TAKE tablet TAKE tablet 1 TABLET BY 1 TABLET BY TAKE 1 MOUTH THREE MOUTH THREE TABLET BY TIMES A DAY TIMES A DAY MOUTH NEEDED NEEDED THREE FOR MUSCLE FOR MUSCLE TIMES A SAPSMS SAPSMS DAY NEEDED FOR MUSCLE SAPSMS estradiol estradiol No estradiol [facility] 0.1 mg/24 0.1 mg/24 0.1 mg/24 Medical hr hr hr semiweekly semiweekly semiweekly transdermal transdermal transderma patch patch l patch TOPICALLY TOPICALLY TOPICALLY APPLY 1 APPLY 1 APPLY 1 PATCH TWICE PATCH TWICE PATCH A WEEK A WEEK TWICE A WEEK fluconazole fluconazole No fluconazol [facility] 200 mg 200 mg e 200 mg Medical tablet Take tablet Take tablet 1 tablet PO 1 tablet PO Take 1 q72h x 2 q72h x 2 tablet PO doses doses q72h x 2 doses hydrocortis hydrocortis No hydrocorti [facility] one 2.5 % one 2.5 % sone 2.5 % Medical topical topical topical cream cream cream hydroxyzine hydroxyzine No hydroxyzin [facility] HCl 10 mg HCl 10 mg e HCl 10 M edical tablet TAKE tablet TAKE mg tablet 1 TABLET BY 1 TABLET BY TAKE 1 MOUTH THREE MOUTH THREE TABLET BY TIMES A TIMES A MOUTH WEEK WEEK THREE NEEDED FOR NEEDED FOR TIMES A ITCH ITCH WEEK NEEDED FOR ITCH liothyronin liothyronin No liothyroni [facility] e 5 mcg e 5 mcg ne 5 mcg Medic al tablet TAKE tablet TAKE tablet 2 TABLETS 2 TABLETS TAKE 2 BY MOUTH AT BY MOUTH AT TABLETS BY 9AM, 2 9AM, 2 MOUTH AT TABLETS AT TABLETS AT 9AM, 2 12PM, AND 1 12PM, AND 1 TABLETS AT TABLET IN TABLET IN 12PM, AND THE EVENING THE EVENING 1 TABLET IN THE EVENING Macrobid Macrobid No 1capsul Q12H Macrobid [facility] 100 mg 100 mg e(s) 100 mg Medical capsule capsule capsule Take 1 Take 1 Take 1 capsule capsule capsule every 12 every 12 every 12 hours by hours by hours by oral route oral route oral route for 7 days. for 7 days. for 7 days. methylpredn methylpredn No methylpred [facility] isolone 4 isolone 4 nisolone 4 Medical mg tablets mg tablets mg tablets in a dose in a dose in a dose pack TAKE 6 pack TAKE 6 pack TAKE TABLETS ON TABLETS ON 6 TABLETS DAY 1 DAY 1 ON DAY 1 DIRECTED ON DIRECTED ON PACKAGE AND PACKAGE AND DIRECTED DECREASE BY DECREASE BY ON PACKAGE 1 TAB EACH 1 TAB EACH AND DAY FOR A DAY FOR A DECREASE TOTAL OF 6 TOTAL OF 6 BY 1 TAB DAYS DAYS EACH DAY FOR A TOTAL OF 6 DAYS Norditropin Norditropin No Norditropi [facility] FlexPro 5 FlexPro 5 n FlexPro Medical mg/1.5 mL mg/1.5 mL 5 mg/1.5 (3.3 mg/mL) (3.3 mg/mL) mL (3.3 subcutaneou subcutaneou mg/mL) s pen s pen subcutaneo injector injector us pen INJECT INJECT injector 0.6MG 0.6MG INJECT SUBCUTANEOU SUBCUTANEOU 0.6MG SLY DAILY SLY DAILY SUBCUTANEO USLY DAILY Novofine 32 Novofine 32 No Novofine [facility] 32 gauge x 32 gauge x 32 32 Me dical 10/29" needle 10/29" needle gauge x USE USE 10/29" DIRECTED DIRECTED needle USE DIRECTED pantoprazol pantoprazol No pantoprazo [facility] e 40 mg e 40 mg le 40 mg Medic al tablet,xander tablet,xander tablet,del yed release yed release ayed TAKE 1 TAKE 1 release TABLET BY TABLET BY TAKE 1 MOUTH EVERY MOUTH EVERY TABLET BY DAY BEFORE DAY BEFORE MOUTH BREAKFAST BREAKFAST EVERY DAY DO NOT DO NOT BEFORE CRUSH CHEW CRUSH CHEW BREAKFAST OR SPLIT OR SPLIT DO NOT CRUSH CHEW OR SPLIT Premarin Premarin No Premarin Divine via 0.625 0.625 0.625 Medical mg/gram mg/gram mg/gram vaginal vaginal vaginal cream cream cream INSERT 1GM INSERT 1GM INSERT 1GM VAGINALLY VAGINALLY VAGINALLY WITH WITH WITH APPLICATOR APPLICATOR APPLICATOR TWICE TWICE TWICE WEEKLY WEEKLY WEEKLY promethazin promethazin No promethazi [facility] e-DM 6.25 e-DM 6.25 ne-DM 6.25 Medical mg-15 mg/5 mg-15 mg/5 mg-15 mg/5 mL oral mL oral mL oral syrup syrup syrup Symbicort Symbicort No Symbicort [facility] 160 mcg-4.5 160 mcg-4.5 160 M edical mcg/actuati mcg/actuati mcg-4.5 on HFA on HFA mcg/actuat aerosol aerosol ion HFA inhaler inhaler aerosol PLEASE SEE PLEASE SEE inhaler ATTACHED ATTACHED PLEASE SEE FOR FOR ATTACHED DETAILED DETAILED FOR DIRECTIONS DIRECTIONS DETAILED DIRECTIONS Synthroid Synthroid No Synthroid [facility] 112 mcg 112 mcg 112 mcg Medica l tablet TAKE tablet TAKE tablet 1 TABLET BY 1 TABLET BY TAKE 1 MOUTH EVERY MOUTH EVERY TABLET BY DAY IN THE DAY IN THE MOUTH MORNING MORNING EVERY DAY IN THE MORNING tacrolimus tacrolimus No tacrolimus [facility] 0.1 % 0.1 % 0.1 % Medical topical topical topical ointment ointment ointment APPLY TO APPLY TO APPLY TO RED AREAS RED AREAS RED AREAS ON FACE ON FACE ON FACE TWICE A DAY TWICE A DAY TWICE A UNTIL UNTIL DAY UNTIL RESOLVED RESOLVED RESOLVED Testosteron Testosteron No Testostero [facility] e Cream e Cream ne Cream Medic al Testosteron Testosteron Testostero e e ne Testosteron Testosteron No Testostero [facility] e Cream e Cream ne Cream Medic al Testosteron Testosteron Testostero e e ne Testosteron Testosteron Test[facility]ero e cream e cream ne cream 0.5 mg/ML- 0.5 mg/ML- 0.5 2 clicks 2 clicks mg/ML- 2 (1ml) (1ml) clicks applied to applied to (1ml) each inner each inner applied to thigh daily thigh daily each inner thigh daily tretinoin tretinoin No tretinoin [facility] 0.05 % 0.05 % 0.05 % Medical topical topical topical cream APPLY cream APPLY cream A THIN A THIN APPLY A LAYER TO LAYER TO THIN LAYER FACE EVERY FACE EVERY TO FACE OTHER NIGHT OTHER NIGHT EVERY AT BEDTIME AT BEDTIME OTHER OR DAILY AT OR DAILY AT NIGHT AT BEDTIME BEDTIME BEDTIME OR WITH WITH DAILY AT GRADUAL GRADUAL BEDTIME ONSET ONSET WITH GRADUAL ONSET Aimovig Aimovig No Aimovig [facility] Autoinjecto Autoinjecto Autoinject Medical r 140 mg/mL r 140 mg/mL or 140 subcutaneou subcutaneou mg/mL s s subcutaneo auto-inject auto-inject us or INJECT or INJECT auto-injec UNDER THE UNDER THE tor INJECT SKIN ONCE A SKIN ONCE A UNDER THE MONTH MONTH SKIN ONCE DIRECTED DIRECTED A MONTH DIRECTED albuterol albuterol No albuterol [facility] sulfate HFA sulfate HFA sulfate Medical 90 90 HFA 90 mcg/actuati mcg/actuati mcg/actuat on aerosol on aerosol ion inhaler inhaler aerosol inhaler Botox 100 Botox 100 No Botox 100 [facility] unit unit unit Medical injection injection injection cholecalcif cholecalcif No cholecalci [facility] la nena la nena ferol Medical (vitamin (vitamin (vitamin D3) 1,250 D3) 1,250 D3) 1,250 mcg (50,000 mcg (50,000 mcg unit) unit) (50,000 capsule capsule unit) capsule clobetasol clobetasol No clobetasol [facility] 0.05 % 0.05 % 0.05 % Medical topical topical topical foam APPLY foam APPLY foam APPLY A THIN A THIN A THIN LAYER TO LAYER TO LAYER TO DRY SCALP DRY SCALP DRY SCALP TWICE DAILY TWICE DAILY TWICE DAILY COMPOUNDED COMPOUNDED No COMPOUNDED [facility] MEDICATION MEDICATION MEDICATION Medical Biest Biest Biest (50:50) (50:50) (50:50) cream 1mg cream 1mg cream 1mg mg/ml Apply mg/ml Apply mg/ml 1/2 ml QD 1/2 ml QD Apply 1/2 ml QD COMPOUNDED COMPOUNDED No COMPOUNDED [facility] MEDICATION MEDICATION MEDICATION Medical CPD CPD CPD -TESTOST -TESTOST -TESTOST 8MG/ML VCRM 8MG/ML VCRM 8MG/ML APPLY 1/2 APPLY 1/2 VCRM APPLY ML (2 ML (2 1/2 ML (2 CLICKS) TO CLICKS) TO CLICKS) TO INNER THIGH INNER THIGH INNER ONCE DAILY ONCE DAILY THIGH ONCE DAILY COMPOUNDED COMPOUNDED No COMPOUNDED [facility] MEDICATION MEDICATION MEDICATION Medical CPD CPD CPD -TESTOST -TESTOST -TESTOST 8MG/ML VCRM 8MG/ML VCRM 8MG/ML CREAM APPLY CREAM APPLY VCRM CREAM 1/2 ML (2 1/2 ML (2 APPLY 1/2 CLICKS) TO CLICKS) TO ML (2 INNER THIGH INNER THIGH CLICKS) TO ONCE DAILY ONCE DAILY INNER THIGH ONCE DAILY estradiol estradiol No estradiol [facility] 0.1 mg/24 0.1 mg/24 0.1 mg/24 Medical hr hr hr semiweekly semiweekly semiweekly transdermal transdermal transderma patch patch l patch TOPICALLY TOPICALLY TOPICALLY APPLY 1 APPLY 1 APPLY 1 PATCH TWICE PATCH TWICE PATCH A WEEK A WEEK TWICE A WEEK Genotropin Genotropin No Genotropin [facility] 12 mg/mL 12 mg/mL 12 mg/mL Med ical (36 (36 (36 unit/mL) unit/mL) unit/mL) subcutaneou subcutaneou subcutaneo s cartridge s cartridge us INJECT INJECT cartridge 0.6MG 0.6MG INJECT SUBCUTANEOU SUBCUTANEOU 0.6MG SLY ONCE SLY ONCE SUBCUTANEO DAILY ON 7 DAILY ON 7 USLY ONCE DAYS PER DAYS PER DAILY ON 7 WEEK WEEK DAYS PER WEEK hers anti hers anti No hers anti [facility] age 0.0125% age 0.0125% age M edical Apply 1-2 Apply 1-2 0.0125% pumps to pumps to Apply 1-2 face each face each pumps to evening. evening. face each evening. hydrocodone hydrocodone No hydrocodon [facility] 5 5 e 5 Medical mg-acetamin mg-acetamin mg-acetami ophen 325 ophen 325 nophen 325 mg tablet mg tablet mg tablet hydrocortis hydrocortis No hydrocorti [facility] one 2.5 % one 2.5 % sone 2.5 % Medical topical topical topical cream cream cream hydroxyzine hydroxyzine No hydroxyzin [facility] HCl 10 mg HCl 10 mg e HCl 10 M edical tablet tablet mg tablet liothyronin liothyronin No liothyroni [facility] e 5 mcg e 5 mcg ne 5 mcg Medic al tablet TAKE tablet TAKE tablet 2 TABLETS 2 TABLETS TAKE 2 BY MOUTH AT BY MOUTH AT TABLETS BY 9AM, 2 9AM, 2 MOUTH AT TABLETS AT TABLETS AT 9AM, 2 12PM, AND 1 12PM, AND 1 TABLETS AT TABLET IN TABLET IN 12PM, AND THE EVENING THE EVENING 1 TABLET IN THE EVENING Norditropin Norditropin No Norditropi [facility] FlexPro 10 FlexPro 10 n FlexPro Medical mg/1.5 mL mg/1.5 mL 10 mg/1.5 (6.7 mg/mL) (6.7 mg/mL) mL (6.7 subcutaneou subcutaneou mg/mL) s pen s pen subcutaneo injector injector us pen INJECT INJECT injector 0.6MG 0.6MG INJECT SUBCUTANEOU SUBCUTANEOU 0.6MG SLY EVERY SLY EVERY SUBCUTANEO DAY DAY USLY EVERY DAY Norditropin Norditropin No Norditropi [facility] FlexPro 5 FlexPro 5 n FlexPro Medical mg/1.5 mL mg/1.5 mL 5 mg/1.5 (3.3 mg/mL) (3.3 mg/mL) mL (3.3 subcutaneou subcutaneou mg/mL) s pen s pen subcutaneo injector injector us pen INJECT INJECT injector 0.6MG 0.6MG INJECT SUBCUTANEOU SUBCUTANEOU 0.6MG SLY DAILY SLY DAILY SUBCUTANEO USLY DAILY Novofine 32 Novofine 32 No Novofine [facility] 32 gauge x 32 gauge x 32 32 Me dical 10/29" needle 10/29" needle gauge x USE USE 10/29" DIRECTED DIRECTED needle USE DIRECTED Premarin Premarin No Premarin Divine via 0.625 0.625 0.625 Medical mg/gram mg/gram mg/gram vaginal vaginal vaginal cream cream cream INSERT 1GM INSERT 1GM INSERT 1GM VAGINALLY VAGINALLY VAGINALLY WITH WITH WITH APPLICATOR APPLICATOR APPLICATOR TWICE TWICE TWICE WEEKLY WEEKLY WEEKLY promethazin promethazin No promethazi [facility] e-DM 6.25 e-DM 6.25 ne-DM 6.25 Medical mg-15 mg/5 mg-15 mg/5 mg-15 mg/5 mL oral mL oral mL oral syrup syrup syrup Symbicort Symbicort No Symbicort [facility] 160 mcg-4.5 160 mcg-4.5 160 M edical mcg/actuati mcg/actuati mcg-4.5 on HFA on HFA mcg/actuat aerosol aerosol ion HFA inhaler inhaler aerosol inhaler Synthroid Synthroid No Synthroid [facility] 112 mcg 112 mcg 112 mcg Medica l tablet TAKE tablet TAKE tablet 1 TABLET BY 1 TABLET BY TAKE 1 MOUTH EVERY MOUTH EVERY TABLET BY MORNING. MORNING. MOUTH EVERY MORNING. Testosteron Testosteron No Testostero [facility] e Cream e Cream ne Cream Medic al Testosteron Testosteron Testostero e e ne Testosteron Testosteron No Testostero [facility] e Cream e Cream ne Cream Medic al Testosteron Testosteron Testostero e e ne Testosteron Testosteron Test[facility] e cream e cream ne cream 0.5 mg/ML- 0.5 mg/ML- 0.5 2 clicks 2 clicks mg/ML- 2 (1ml) (1ml) clicks applied to applied to (1ml) each inner each inner applied to thigh daily thigh daily each inner thigh daily tretinoin tretinoin No tretinoin [facility] 0.05 % 0.05 % 0.05 % Medical topical topical topical cream APPLY cream APPLY cream A THIN A THIN APPLY A LAYER TO LAYER TO THIN LAYER FACE EVERY FACE EVERY TO FACE OTHER NIGHT OTHER NIGHT EVERY AT BEDTIME AT BEDTIME OTHER OR DAILY AT OR DAILY AT NIGHT AT BEDTIME BEDTIME BEDTIME OR WITH WITH DAILY AT GRADUAL GRADUAL BEDTIME ONSET ONSET WITH GRADUAL ONSET Immunizations Ordered Filled Immunization Date Status Comments Sour e Immunization Name Name COVID-19 Pfizer 2021-10-22 Completed [facility] 00:00:00 Influenza, 2021-10-[address] [facility] quadrivalent, 00:00:00 injectable, preservative free Influenza, 2021-10-22 Completed [facility] quadrivalent, 00:00:00 injectable, preservative free COVID-19 Pfizer 12 2021-10-22 Completed [facility] 00:00:00 Influenza, 2021-10-22 Completed [facility] quadrivalent, 00:00:00 injectable, preservative free COVID-19 Pfizer 12 2021-10-22 Completed [facility] 00:00:00 Influenza Virus 2014-08-23 Completed Universit [facility] of Vaccine Quad IM 3+ 00:00:00 [facility] Influenza Virus 2014-08-23 Completed [facility]it y of Vaccine Quad IM 3+ 00:00:00 [facility] Influenza Virus 2014-08-23 Completed [facility]it y of Vaccine Quad IM 3+ 00:00:00 [facility] Influenza Virus 2014-08-23 Completed Universit y of Vaccine Quad IM 3+ 00:00:00 [facility] Influenza Virus 2014-08-23 Completed Universit y of Vaccine Quad IM 3+ 00:00:00 [facility] Influenza Virus 2014-08-23 Completed Universit y of Vaccine Quad IM 3+ 00:00:00 [facility] Influenza Virus 2014-08-23 Completed Universit y of Vaccine Quad IM 3+ 00:00:00 [facility] Influenza Virus 2014-08-23 Completed Universit y of Vaccine Quad IM 3+ 00:00:00 [facility] Influenza Virus 2014-08-23 Completed Universit y of Vaccine Quad IM 3+ 00:00:00 [facility] Influenza Virus 2014-08-23 Completed Universit y of Vaccine Quad IM 3+ 00:00:00 [facility] Influenza Virus 2014-08-23 Completed Universit y of Vaccine Quad IM 3+ 00:00:00 [facility] Influenza Virus 2014-08-23 Completed Universit y of Vaccine Quad IM 3+ 00:00:00 [facility] Influenza Virus 2014-08-23 Completed Universit y of Vaccine Quad IM 3+ 00:00:00 [facility] Influenza Virus 2014-08-23 Completed Universit y of Vaccine Quad IM 3+ 00:00:00 [facility] Influenza Virus 2014-08-23 Completed Universit y of Vaccine Quad IM 3+ 00:00:00 [facility] Influenza Virus 2014-08-23 Completed Universit y of Vaccine Quad IM 3+ 00:00:00 [facility] Influenza Virus 2014-08-23 Completed Universit y of Vaccine Quad IM 3+ 00:00:00 [facility] Influenza Virus 2014-08-23 Completed Universit y of Vaccine Quad IM 3+ 00:00:00 [facility] Influenza Virus 2014-08-23 Completed Universit y of Vaccine Quad IM 3+ 00:00:00 [facility] Influenza Virus 2014-08-23 Completed Universit y of Vaccine Quad IM 3+ 00:00:00 [facility] Influenza Virus 2014-08-23 Completed [facility]it y of Vaccine Quad IM 3+ 00:00:00 [facility] Influenza Virus 2014-08-23 Completed [facility]it y of Vaccine Quad IM 3+ 00:00:00 [facility] Influenza Virus 2014-08-23 Completed [facility]it y of Vaccine Quad IM 3+ 00:00:00 [facility] Influenza Virus 2014-08-23 Completed [facility]it y of Vaccine Quad IM 3+ 00:00:00 [facility] Influenza Virus 2014-08-23 Completed Universit y of Vaccine Quad IM 3+ 00:00:00 [facility] Influenza Virus 2014-08-23 Completed [facility]it y of Vaccine Quad IM 3+ 00:00:00 [facility] Influenza Virus 2014-08-23 Completed [facility]it y of Vaccine Quad IM 3+ 00:00:00 [facility] Influenza Virus 2014-08-23 Completed [facility]it y of Vaccine Quad IM 3+ 00:00:00 [facility] Influenza Virus 2014-08-23 Completed [facility]it y of Vaccine Quad IM 3+ 00:00:00 [facility] Influenza Virus 2014-08-23 Completed [facility]it y of Vaccine Quad IM 3+ 00:00:00 [facility] Influenza Virus 2014-08-23 Completed [facility]it y of Vaccine Quad IM 3+ 00:00:00 [facility] Vital Signs Vital Name Observation Time Observation Value Comments Source WEIGHT 2021-06-22 20:00:00 58.06 kg HEIGHT 2021-06-21 14:28:00 154.9 cm WEIGHT 2021-06-21 14:28:00 57.5 kg Systolic blood 2022-12-17 18:04:00 105 mm[Hg] Univer sity of pressure [facility] Diastolic blood 2022-12-17 18:04:00 67 mm[Hg] Unive rsity of pressure [facility] Heart rate 2022-12-17 18:04:00 75 /min Universi ty [facility] Body temperature 2022-12-17 18:04:00 36.22 [facility] Respiratory rate 2022-12-17 18:04:00 16 /min [facility] height 2022-12-17 18:04:00 152.4 cm Universi ty [facility] Body weight 2022-12-17 18:04:00 55.52 kg Universi ty [facility] BMI 2022-12-17 18:04:00 23.90 kg/m2 [facility] Oxygen saturation in 2022-12-17 18:04:00 94 /min [facility] Arterial blood by [facility] Pulse oximetry Branch Height 2022-04-21 00:00:00 61 [in_i] Олег Reed [facility] BP Diastolic 2022-04-08 00:00:00 76 mm[Hg] Олег Reed ical Height 2022-04-08 00:00:00 61 [in_i] Олег Reed [facility] BMI (Body Mass 2022-04-08 00:00:00 24.6 kg/m2 [facility] Index) BP Systolic 2022-04-08 00:00:00 123 mm[Hg] Олег Reed [facility] Body Weight 2022-04-08 00:00:00 130 [lb_av] Олег Reed edical Systolic blood 2021-11-21 17:01:00 136 mm[Hg] [facility] Diastolic blood 2021-11-21 17:01:00 84 mm[Hg] [facility] Heart rate 2021-11-21 17:01:00 87 [facility] temperature 2021-11-21 17:01:00 37 Sri [facility] Body height 2021-11-21 17:01:00 149.9 cm [facility] weight 2021-11-21 17:01:00 [facility]323 [facility] BMI 2021-11-21 17:01:00 25.52 [facility] Height 2021-10-16 00:00:00 61 [in_i] Олег Reed edical Height 2021-10-07 00:00:00 61 [in_i] Олег Reed edical WEIGHT 2021-06-22 20:00:00 58.06 kg HEIGHT 2021-06-21 14:28:00 154.9 cm WEIGHT 2021-06-21 14:28:00 57.5 kg Procedures Procedure Date / Time Performed Performing Clinician [facility] Incontinence Procedure: 2018-01-12 00:00:00 [facility] Sub[facility] Sling Incontinence Procedure: 2017-11-02 00:00:00 [facility] Sub[facility]ral S[facility] Back / Spine Surgery 2015-11-26 00:00:00 [facility] Hysterectomy (Ovaries 1989-02-23 00:00:00 [facility] Remain) Oophorectomy (Ovary 1989-02-23 00:00:00 [facility] Removal) Appendectomy 1982-08-26 00:00:00 [facility] Laparoscopy 1982-08-26 00:00:00 [facility] Plan of Care Planned Activity Planned Date Details Comments Source Diagnostic Test 2022-04-08 HIV 1+2 Ab + HIV1 p24 [facility] Pending 00:00:00 Ag, quantitative immunoassay, serum [code = HIV 1+2 Ab + HIV1 p24 Ag, quantitative immunoassay, serum] Diagnostic Test 2022-04-08 RPR (rapid plasma [facility] Pending 00:00:00 reagin), serum [code = RPR (rapid plasma reagin), serum] Diagnostic Test 2022-04-08 hepatitis panel [facility] Pending 00:00:00 (A+B+C), acute, serum [code = hepatitis panel (A+B+C), acute, serum] Diagnostic Test 2022-04-08 HIV 1+2 Ab + HIV1 p24 [facility] Pending 00:00:00 Ag, quantitative immunoassay, serum [code = HIV 1+2 Ab + HIV1 p24 Ag, quantitative immunoassay, serum] Diagnostic Test 2022-04-08 RPR (rapid plasma [facility] Pending 00:00:00 reagin), serum [code = RPR (rapid plasma reagin), serum] Diagnostic Test 2022-04-08 hepatitis panel [facility] Pending 00:00:00 (A+B+C), acute, serum [code = hepatitis panel (A+B+C), acute, serum] Diagnostic Test 2022-04-08 urinalysis, complete [facility] Pending 00:00:00 [code = urinalysis, complete] Diagnostic Test 2022-04-08 culture, urine [code = [facility] Pending 00:00:00 culture, urine] Diagnostic Test 2022-04-08 bacterial vaginosis [facility] Pending 00:00:00 panel, vaginal [code = bacterial vaginosis panel, vaginal] Diagnostic Test 2022-04-08 CT + NG DNA, qual, [facility] Pending 00:00:00 PCR, unspecified specimen [code = CT + NG DNA, qual, PCR, unspecified specimen] Encounters Start End Encounter Admission Attending Care Care Encounter Source Date/Time Date/Time Type Type Clinicians Facility Department ID 2021-11-21 [facility] [id number] [place] [facility] 2021-10-21 Outpatient [facility] [id number] [place] 22:16:26 [facility] 2021-10-14 Outpatient [facility] [id number] [place] 16:35:48 [facility] 2021-08-04 Inpatient ER SHIEH, [facility] [id number] [facility] 10:20:24 CHRISTOPHER 2023-04-03 2023-04-03 [id number] [facility] 00:00:00 00:00:00 [facility] 350.1.13.10 [place] [id number] Vt dical [address] 2023-04-01 2023-04-01 Outpatient [facility] PRIV PRIV [id number] [facility] 00:00:00 00:00:00 _Lotze_P [id number] Medic mt 2023-03-24 2023-03-24 Telephone [facility] [id number] [facility] 00:00:00 00:00:00 [facility] 350.1.13.10 [place] [id number] Vt dical [address] 2023-03-04 2023-03-04 Outpatient _[facility] PRIV PRIV [id number] [facility] 00:00:00 00:00:00 _Lotze_P [id number] Medic al 2023-02-24 2023-02-24 Outpatient [facility] PRIV PRIV [id number] [facility] 00:00:00 00:00:00 _Lotze_P [id number] Medic al 2022-12-17 2022-12-17 Outpatient R [facility] [id number] Univers 11:30:00 16:21:22 [facility] 2022-12-17 2022-12-17 Office [facility] 1.2.840.114 [id number] Univers 11:30:00 16:21:22 Visit [facility] PRIMARY 350.1.13.10 [place] [id number] Vt dicmt [address] 2022-12-17 2022-12-17 Site Leader Pcp-Lab [facility] 1.2.840.114 [id number] Univers 15:45:00 16:00:00 Visit Vanna [facility] PRIMARY 350.1.13.10 it[place] [id number] [facility] [address] 2022-12-17 2022-12-17 Outpatient R [facility] [id number] Univers 10:30:00 10:30:00 [facility] 2022-12-16 2022-12-16 Telephone [facility] [id number] [id number] Univers 00:00:00 00:00:00 [facility] PRIMARY 350.1.13.10 it[place] [id number] Vt dical [address] 2022-12-12 2022-12-12 Telephone [facility] 1.2.180.381 [id number] Univers 00:00:00 00:00:00 [facility] PRIMARY 350.1.13.10 it[place] [id number] Vt dical [address] 2022-12-10 2022-12-10 Outpatient R [facility] [id number] Univers 08:00:00 08:00:00 [facility] 2022-12-09 2022-12-09 Telephone [facility] 1.2.091.160 [id number] Univers 00:00:00 00:00:00 Kiran J PRIMARY 350.1.13.10 [place] [id number] Vt dical [address] 2022-12-09 2022-12-09 Telephone [facility] 1.2.386.601 [id number] Univers 00:00:00 00:00:00 Maury J PRIMARY 350.1.13.10 it[place] [id number] Vt dical [address] 2022-12-08 2022-12-08 Outpatient _[facility] PRIV PRIV [id number] [facility] 00:00:00 00:00:00 _[facility]_P [id number] [facility] 2022-12-08 2022-12-08 [facility] 1.2.219.076 [id number] Univers 00:00:00 00:00:00 Kiran J PRIMARY 350.1.13.10 [place] [id number] Vt dical [address] 2022-11-16 2022-11-16 Refill [facility] 1.2.840.114 [id number] Univers 00:00:00 00:00:00 [facility] PRIMARY 350.1.13.10 it[place] [id number] Vt dical [address] [place] 2022-09-24 2022-09-24 Outpatient R [facility] [id number] Univers 08:30:00 08:30:00 [facility] 2022-09-14 2022-09-14 [facility] 1.2.840.114 [id number] Univers 00:00:00 00:00:00 Kiran J PRIMARY 350.1.13.10 [place] [id number] Vt dical [address] 2022-07-24 2022-07-24 Patient [facility] 1.2.840.114 [id number] Univers 00:00:00 00:00:00 Secure Msg Kiran J PRIMARY 350.1.13.10 it[place] [id number] Vt dical [address] 2022-07-24 2022-07-24 Refill [facility] 1.2.840.114 [id number] Univers 00:00:00 00:00:00 Kiran J PRIMARY 350.1.13.10 [place] [id number] Vt dical [address] [place] 2022-07-21 2022-07-21 Refill [facility] 1.2.840.114 [id number] Univers 00:00:00 00:00:00 Kiran J PRIMARY 350.1.13.10 [place] [id number] Vt dicmt [address] [place] 2022-07-09 2022-07-09 [facility] [id number] Univers 14:30:00 14:30:00 [facility] 2022-07-02 2022-07-02 Outpatient [facility] [id number] Univers 13:45:00 13:45:00 [facility] 2022-06-30 2022-06-30 Outpatient _[facility] PRIV PRIV [id number] [facility] 00:00:00 00:00:00 _Lotze_P [id number] Medic al 2022-06-24 2022-06-24 Telephone [facility] 1.2.175.691 [id number] Univers 00:00:00 00:00:00 Kiran J PRIMARY 350.1.13.10 [place] [id number] Vt dical [address] 2022-06-18 2022-06-18 Outpatient R [facility] [id number] Univers 10:30:00 10:30:00 [facility]22-06-10 2022-06-10 [facility] 1.2.840.114 [id number] Univers 00:00:00 00:00:00 [facility] PRIMARY 350.1.13.10 [place] [id number] Vt dical [address] 2022-06-02 2022-06-02 Outpatient [facility] PRIV PRIV [id number] [facility] 00:00:00 00:00:00 _Lotze_P [id number] Medic al 2022-05-31 2022-05-31 [facility] 1.2.840.114 [id number] Univers 00:00:00 00:00:00 [facility] PRIMARY 350.1.13.10 [place] [id number] Vt dical [address] 2022-05-16 2022-05-16 [facility] 1.2.840.114 [id number] Univers 00:00:00 00:00:00 [facility] PRIMARY 350.1.13.10 [place] [id number] Vt dical [address] 2022-05-07 2022-05-07 Outpatient [facility] [id number] [place] 09:37:00 09:37:00 [facility] 2022-05-03 2022-05-03 Outpatient [facility] PRIV PRIV [id number] [facility] 03:04:00 03:04:00 _Lotze_P [id number] Medic al 2022-04-30 2022-04-30 Outpatient R [facility] [id number] Univers 11:00:00 11:00:00 KIRAN yates [facility] 2022-04-25 2022-04-25 Outpatient [facility] PRIV PRIV [id number] [facility] 07:38:00 07:38:00 _Lotze_P [id number] Medic al 2022-04-24 2022-04-24 Outpatient [facility] PRIV PRIV [id number] [facility] 01:03:00 01:03:00 _Lotze_P [id number] Medic al 2022-04-21 2022-04-21 Peter [facility] 00:00:00 00:00:00 [facility] kaur Sharma MD: [facility] [address] Office* [address], [place] [address] , Ph. [phone] 2022-04-21 2022-04-21 Outpatient Lotze, PRIV PRIV [id number] c-f 00:00:00 00:00:00 Malcolm [id number]-[id number]-[id number] Travis [id number] 2022-04-12 2022-04-12 Outpatient [facility] PRIV PRIV [id number] [facility] 07:52:00 07:52:00 _Lotze_P [id number] Medic al 2022-04-10 2022-04-10 Outpatient [facility] PRIV PRIV [id number] [facility] 01:18:00 01:18:00 _Lotze_P [id number] Medic al 2022-04-09 2022-04-09 Outpatient [facility] PRIV PRIV [id number] [facility] 11:29:00 11:29:00 _Lotze_P [id number] Medic al 2022-04-08 2022-04-08 Outpatient [facility] PRIV PRIV [id number] [facility] 11:25:00 11:25:00 _Lotze_P [id number] Medic al 2022-04-08 2022-04-08 Malcolm [facility] 00:00:00 00:00:00 [facility] kaur Sharma MD: GCMARIANELAHAW[facility] [address]* [address], [place] [address] , Ph. [phone] 2022-04-08 2022-04-08 Outpatient Lotze, PRIV PRIV [id number] e-e 00:00:00 00:00:00 Malcolm [id number]-d Travis [id number] 2022-04-07 2022-04-07 Outpatient _[facility] PRIV PRIV [id number]- [facility] 05:55:00 05:55:00 _Lotze_P [id number] Medic al 2022-02-12 2022-02-12 Outpatient [facility] PRIV PRIV [id number] [facility] 03:40:00 03:40:00 _Lotze_P [id number] Medic al 2022-02-11 2022-02-11 Akshat Prabhakar [facility] 1.2.840.114 [id number] Univers 00:00:00 00:00:00 Kiran J PRIMARY 350.1.13.10 [place] [id number] Vt dical [address] 2022-01-21 2022-01-21 [facility]phone [facility] 1.2.840.114 [id number] Univers 00:00:00 00:00:00 Lissy PRIMARY 350.1.13.10 it y of [place] [id number] Vt dical [address] 2022-01-17 2022-01-17 Telephone Eduardo [facility] 1.2.389.302 [id number] Univers 00:00:00 00:00:00 Nate PRIMARY 350.1.13.10 it [place] [id number] Vt dical [address] 2022-01-15 2022-01-15 Outpatient [facility] PRIV PRIV [id number]- [facility] 02:55:00 02:55:00 _Lotze_P [id number] Medic al 2022-01-09 2022-01-09 [facility]phone [facility] 1.2.840.114 [id number] Univers 00:00:00 00:00:00 Lissy PRIMARY 350.1.13.10 it y of [place] [id number] Vt dical [address] 2022-01-01 2022-01-01 [facility] 1.2.840.114 [id number] Univers 00:00:00 00:00:00 Kiran J PRIMARY 350.1.13.10 [place] [id number] Vt dical [address] 2021-12-18 2021-12-18 Outpatient [facility] PRIV PRIV [id number] [facility] 04:21:00 04:21:00 _Lotze_P [id number] Medic al 2021-12-18 2021-12-18 Patient Doctor [facility] 1.2.840.114 [id number] Univers 00:00:00 00:00:00 Secure Msg Unassigned, PRIMARY 350.1.13.10 ity of [place] [id number] Vt dical 067 Branch 2021-11-21 2021-11-21 Office Maynor KALLI [facility] 1.2.840.114 [id number] [place] 10:00:00 11:49:53 Visit Travis [facility] 350.1.13.[address] 9.2.7.2.686 [id number] 2021-11-21 2021-11-21 Outpatient [facility] PRIV PRIV [id number] [facility] 06:16:00 06:16:00 _Lotze_P [id number] Medic al 2021-11-14 2021-11-14 [facility] 1.2.840.114 [id number] Univers 00:00:00 00:00:00 Kiran J PRIMARY 350.1.13.10 [place] [id number] Vt dical [address] 2021-11-04 2021-11-04 Outpatient [facility] PRIV PRIV [id number] [facility] 05:32:00 05:32:00 _Lotze_P [id number] Medic al 2021-10-29 2021-10-29 Outpatient [facility] PRIV PRIV [id number] [id number] [facility] 04:24:00 04:24:00 _Lotze_P [id number] Medic al 2021-10-23 2021-10-23 Outpatient [facility] PRIV PRIV [id number] [id number] [facility] 02:06:00 02:06:00 _Lotze_P [id number] Medic al 2021-10-22 2021-10-22 Immunizati G125, Covid UTP 6414 1.2.840.11 [id number] [place] 13:30:00 13:40:00 on Vaccine - [address] 350.1.13.58 Health Pfizer 9.2.7.2.686 [id number] 3 2021-10-22 2021-10-22 Immunizati G125, Covid UTP 6414 1.2.840.11 4 [id number] [place] 13:30:00 13:40:00 on Vaccine - [address] 350.1.13.58 Health Pfizer 9.2.7.2.686 [id number] 3 2021-10-16 2021-10-16 Outpatient [facility] PRIV PRIV [id number] [facility] 03:48:00 03:48:00 _Lotze_P [id number] Medic al 2021-10-16 2021-10-16 Malcolm GUERRERO [facility] [id number] [facility] 00:00:00 00:00:00 [facility] kaur Sharma MD: _[facility] [address] Office* [address], [place] [address] , Ph. [phone] 2021-10-16 2021-10-16 Outpatient Akilze, PRIV PRIV [id number] c-7 00:00:00 00:00:00 Malcolm w7e-99lz-0 Travis [id number] [id number] 2021-10-09 2021-10-09 Outpatient [facility] PRIV PRIV [id number] [facility] 05:30:00 05:30:00 _Lotze_P [id number] Medic al 2021-10-07 2021-10-07 [facility] PRIV PRIV [id number] [facility] 04:49:00 04:49:00 _Lotze_P [id number] Medic al 2021-10-07 2021-10-07 Malcolm YOLANDA [facility] [id number] [facility] 00:00:00 00:00:00 [facility] kaur Sharma MD: [facility] [address] Office* [address], [place] [address] , Ph. [phone] 2021-10-07 2021-10-07 Outpatient Zachary PRIV PRIV [id number] 2-5 00:00:00 00:00:00 Malcolm [id number]-[id number] Travis [id number] 2021-10-03 2021-10-03 [facility]patient [facility] PRIV PRIV [id number] [facility] 03:07:00 03:07:00 _Lotze_P [id number] Medic al 2021-09-02 2021-09-02 [facility] 1.2.840.114 [id number] Univers 00:00:00 00:00:00 Alyx MULTISPEC 350.1.13.10 ity of IAL[place] 4.2.7.2.686 [facility] [id number] [address] [facility] 2021-07-09 2021-07-09 Patient Scott [facility] 1.2.594.333 [id number] Univers 00:00:00 00:00:00 Secure Msg Lissy MULTISPEC 350.1.13.10 ity of [place] IAFLAVIA 4.2.7.2.686 [facility] [place] [id number] [address] [facility] 2021-07-08 2021-07-08 Outpatient Florencio PRABHAKAR [facility] [id number] Univers 17:00:00 17:00:00 KIRAN yates [facility] 2021-07-08 2021-07-08 Site Leader Sissy, Araceli Lab Main [facility] 1.2.8 40.114 [id number] Univers 16:44:26 16:59:26 Visit Kiran Prabhakar 350.1.13.10 [place] of [place] Profess[place] [id number] Vt dical nal [address] [facility] 2021-07-08 2021-07-08 Outpatient R [facility] [id number] Univers 16:00:00 16:00:00 ity of [facility] 2021-07-08 2021-07-08 Orders Doctor KATHY 1.2.840.114 [id number] Univers 00:00:00 00:00:00 Only Unassigned, JON 350.1.13.10 ity of [place] [facility] 4.2.7.2.686 Bhavin as [phone] [facility] [address] 2021-07-04 2021-07-04 Patient [facility] 1.2.840.114 [id number] Univers 00:00:00 00:00:00 Secure Msg rrison, PRIMARY 350.1.13.10 ity of [place] [id number] Vt dical 086 Branch 2021-07-03 2021-07-03 Refill Owen, [facility] 1.2.840.114 [id number] Univers 00:00:00 00:00:00 Alyx PRIMARY 350.1.13.10 [place] [id number] Vt dical [address] 2021-07-02 2021-07-02 [facility] 1.2.358.991 [id number] Univers 00:00:00 00:00:00 Kiran J PRIMARY 350.1.13.10 [place] [id number] Vt dical [address] 2021-05-22 2021-05-22 [facility] 1.2.840.114 [id number] Univers 00:00:00 00:00:00 Alyx PRIMARY 350.1.13.10 [place] [id number] Vt dical [address] 2021-05-02 2021-05-02 Patient Owen [facility] 1.2.840.114 [id number] Univers 00:00:00 00:00:00 Secure Msg Alyx MULTISPEC 350.1.13.10 [place] [id number] [facility] AND [address] [facility] 2021-05-02 2021-05-02 Telephone Owen [facility] 1.2.840.114 [id number] Univers 00:00:00 00:00:00 Alyx MULTISPEC 350.1.13.10 [place] [id number] [address] [facility] 2021-04-24 2021-04-24 Site Leader Pcp-Lab [facility] 1.2.840.114 [id number] Univers 12:47:21 13:02:21 Visit Kiran Prabhakar PRIMARY 350.1.13.10 [place] [id number] Vt dical [address] [place] 2021-04-24 2021-04-24 [facility] 1.2.840.114 [id number] Univers 10:28:17 12:44:39 Visit Kiran Chowdary PRIMARY 350.1.13.10 [place] [id number] Vt dical [address] [place] 2021-04-24 2021-04-24 [facility] [id number] Univers 10:30:00 10:30:00 KIRAN ity of [facility] 2021-03-06 2021-03-06 [facility] 1.2.840.114 [id number] [facility] 00:00:00 00:00:00 Kiran Chowdary PRIMARY 350.1.13.10 [place] [id number] Vt dical [address] [place] 2021-02-06 2021-02-06 Outpatient R [facility] [id number] Univers 10:00:00 10:00:00 KIRAN ity of [facility] 2021-02-06 2021-02-06 Telephone [facility] 1.2.589.783 [id number] Univers 00:00:00 00:00:00 Kiran J PRIMARY 350.1.13.10 [place] PAVILLION [phone] Vt dical 220 Branch 2021-01-22 2021-01-22 Refill [facility] 1.2.840.114 [id number] Univers 00:00:00 00:00:00 Kiran J PRIMARY 350.1.13.10 [place] [phone] Vt dical 220 Branch 2021-01-16 2021-01-16 [facility] 1.2.507.684 [id number] Univers 00:00:00 00:00:00 Kiran J PRIMARY 350.1.13.10 [place] [phone] Vt dical 220 Branch 2021-01-15 2021-01-15 Patient [facility] 1.2.840.114 [id number] Univers 00:00:00 00:00:00 Outreach Moe PRIMARY 350.1.13.10 i ty of [place] [phone] Vt dical 388 Branch 2021-01-10 2021-01-10 [facility] 1.2.534.927 [id number] Univers 00:00:00 00:00:00 Kiran J PRIMARY 350.1.13.10 [place] [phone] Vt dical 220 Branch 2021-01-10 2021-01-10 Telephone [facility] 1.2.119.552 [id number] Univers 00:00:00 00:00:00 Kiran J PRIMARY 350.1.13.10 [place] [id number] Vt dical 220 Branch 2021-01-02 2021-01-02 Telephone [facility] 1.2.003.920 [id number] Univers 00:00:00 00:00:00 Kiran ESTEBAN 350.1.13.10 it[place] [id number] Vt dicmt 220 Branch 2020-11-16 2020-11-16 Outpatient R [facility] [id number] Univers 15:16:34 23:59:00 KIRAN ity of [facility] 2020-11-16 2020-11-16 [facility] 1.2.840.114 [id number] 15:00:00 23:59:00 Encounter Kiran Skinner 350.1.13.10 [place] 4.2.7.2.686 [place] [id number] 800 2020-11-16 2020-11-16 [facility] 1.2.840.114 [id number] [facility] 15:00:00 23:59:00 Encounter Kiran Skinner 350.1.13.10 ity of [place] 4.2.7.2.686 [facility] [place] [id number] [facility] 800 Branch 2020-11-16 2020-11-16 Orders Doctor KATHY 1.2.840.114 [id number] 00:00:00 00:00:00 Only Unassigned, JON 350.1.13.10 [place] [facility] 4.2.7.2.686 [id number] 009 2020-11-16 2020-11-16 Orders Doctor KATHY 1.2.840.114 [id number] Univers 00:00:00 00:00:00 Only Unassigned, JON 350.1.13.10 ity of [place] [facility] 4.2.7.2.686 Bhavin as [phone] [facility] [address] [place] 2020-11-07 2020-11-07 Telephone [facility] 1.2.937.745 [id number] 00:00:00 00:00:00 Kiran Chowdary PRIMARY 350.1.13.10 CARE 4.2.7.2.686 PAVILLION [id number] 220 2020-11-07 2020-11-07 Telephone [facility], [facility] 1.2.808.844 [id number] Univers 00:00:00 00:00:00 Kiran J PRIMARY 350.1.13.10 [place] [id number] Vt dical [address] [place] 2020-11-02 2020-11-02 Patient [facility] 1.2.840.114 [id number] 00:00:00 00:00:00 Secure Msg [facility] PRIMARY 350.1.13.10 CARE 4.2.7.2.686 PAVILLION [id number] 220 2020-11-02 2020-11-02 Patient [facility], [facility] 1.2.840.114 [id number] Univers 00:00:00 00:00:00 Secure Msg [facility] PRIMARY 350.1.13.10 it[place] [id number] [address] 2020-08-08 2020-08-08 Telemedici [facility] 1.2.840.114 [id number] 09:49:18 16:39:55 ne Visit [facility] PRIMARY 350.1.13.10 CARE 4.2.7.2.686 PAVILLION [id number] [facility] 2020-08-08 2020-08-08 Telemedici [facility] 1.2.840.114 [id number] [facility] 09:49:18 16:39:55 ne Visit [facility] PRIMARY 350.1.13.10 it[place] of [place] [id number] [address] 2020-08-08 2020-08-08 Outpatient R [facility] [id number] Univers 11:00:00 11:00:00 [facility]-14 2020-02-14 Patient Doctor [facility] 1.2.840.114 [id number] 00:00:00 00:00:00 Secure Msg Unassigned, MULTISPEC 350.1.13.10 [place] IALTY 4.2.7.2.686 CENTER [phone] [place] [address] DIABETES [facility] 2020-02-14 2020-02-14 Patient Doctor [facility] 1.2.840.114 [id number] Univers 00:00:00 00:00:00 Secure Msg Unassigned, MULTISPEC 350.1.13.10 ity of [place]2.[place] C[place] [id number] [facility] AND [address] DIABETES CLINIC 2020-02-11 2020-02-11 [facility] 1.2.840.114 [id number] 00:00:00 00:00:00 Souad MULTISPEC 350.1.13.10 IALTY 4.2.7.2.686 [place] [phone] [place] [address] DIABETES [facility] 2020-02-11 2020-02-11 Refill [place], [facility] 1.2.840.114 [id number] Univers 00:00:00 00:00:00 Souad MULTISPEC 350.1.13.10 ity of IALTY 4.2.7.2.686 [facility] [place] [id number] [facility] AND [address] DIABETES CLINIC 2020-02-07 2020-02-07 Site Leader Araceli Sheehan Lab Main [facility] 1.2.8 40.114 [id number] Univers 11:02:28 12:15:54 Visit Kiran Prabhakar 350.1.13.10 ity of [place].2.[place] Profess[place] [phone] Vt dical [address] 2020-02-07 2020-02-07 Site Leader Araceli Sheehan [facility] 1.2.840.114 [id number] 11:02:28 12:15:54 Visit Lab Main [place] 350.1.13.10 [place] 4.2.7.2.686 Professio [id number] [address] 2020-02-07 2020-02-07 [facility] [id number] Univers 11:00:00 11:00:00 KIRAN yates of [facility] 2020-02-07 2020-02-07 Telephone Vanna [facility] 1.2.258.170 [id number] Univers 00:00:00 00:00:00 Kiran J PRIMARY 350.1.13.10 it[place] [id number] [facility] [address] [place] 2020-02-07 2020-02-07 [facility] 1.2.840.114 [id number] Univers 00:00:00 00:00:00 Souad MULTISPEC 350.1.13.10 it[place] of [place] C[place] [id number] [facility] [place] [address] [place] DI[facility]ES [facility]INIC 2020-02-07 2020-02-07 [facility] 1.2.840.114 [id number] 00:00:00 00:00:00 Souad MULTISPEC 350.1.13.10 IALTY 4.2.7.2.686 CENTER [id number] [place] [address] DIABETES CLINIC 2020-02-01 2020-02-01 Outpatient [facility] [id number] Univers 11:00:00 11:00:00 KIRAN ity [facility] 2020-02-01 2020-02-01 Telemedici [facility] 1.2.840.114 [id number] Univers 07:12:14 07:42:14 ne Visit Kiran J PRIMARY 350.1.13.10 it[place] [id number] [address] 2020-01-24 2020-01-24 Refill [facility] 1.2.840.114 [id number] Univers 00:00:00 00:00:00 Kiran J PRIMARY 350.1.13.10 it[place] [phone] [address] 2019-11-01 2019-11-01 Refill [facility] 1.2.840.114 [id number] Univers 00:00:00 00:00:00 Radha PRIMARY 350.1.13.10 it y of [place] [id number] [address] 2019-07-29 2019-07-29 Outpatient MHIE MHIE [id number] Memoria 11:30:00 11:30:00 07 l [place] 2019-07-29 2019-07-29 Outpatient MHIE MHIE [id number] Memoria 11:30:00 11:30:00 07 pineda Romero 2019-06-30 2019-06-30 [facility] 1.2.840.114 [id number] Univers 00:00:00 00:00:00 [facility] 350.1.13.10 [facility] 4.2.7.2.686 [place] ROBLERO [id number] Vt dical 220 [address] 2019-06-06 2019-06-06 Outpatient MHIE MHIE [id number] Memoria 16:45:00 16:45:00 08 pineda Romero 2019-06-06 2019-06-06 Outpatient MHIE MHIE [id number] 265 Memoria 16:45:00 16:45:00 08 l [place] 2019-05-04 2019-05-04 Outpatient MHIE MHIE [id number] Memoria 11:15:00 11:15:00 06 l [place] 2019-05-04 2019-05-04 Outpatient MHIE MHIE [id number] Memoria 11:15:00 11:15:00 06 l [place] 2019-02-03 2019-02-03 Outpatient MHIE MHIE [id number] Memoria 14:00:00 14:00:00 05 l Nick 2019-02-03 2019-02-03 Outpatient MHIE MHIE [id number] Memoria 14:00:00 14:00:00 05 l Nick 2018-09-22 2018-09-22 Outpatient MHIE MHIE [id number] Memoria 15:00:00 15:00:00 04 l [place] 2018-09-22 2018-09-22 Outpatient MHIE MHIE [id number] Memoria 15:00:00 15:00:00 04 l [place] 2018-08-04 2018-08-04 Outpatient MHIE MHIE [id number] Memoria 10:30:00 10:30:00 03 l [place] 2018-08-04 2018-08-04 Outpatient MHIE MHIE [id number] 265 Memoria 10:30:00 10:30:00 03 l Nick 2018-07-29 2018-07-29 Outpatient MHIE MHHERNANDEZ [id number] Memoria 14:45:00 14:45:00 02 l Nick 2018-07-29 2018-07-29 Outpatient HERNANDEZ HERNANDEZ [id number] Memoria 14:45:00 14:45:00 02 l Nick 2018-06-17 2018-06-17 Outpatient HERNANDEZ HERNANDEZ [id number] Memoria 15:15:00 15:15:00 01 l [place] 2018-06-17 2018-06-17 Outpatient HERNANDEZ HERNANDEZ [id number] 265 Memoria 15:15:00 15:15:00 01 l Nick 2018-05-04 2018-05-04 Outpatient HERNANDEZ HERNANDEZ [id number] Memoria 13:30:00 13:30:00 00 l Nick 2018-05-04 2018-05-04 Outpatient HERNANDEZ HERNANDEZ [id number] Memoria 13:30:00 13:30:00 00 pineda Romero Results Test Description Test Time Test Comments Results Result Comments Source Bacteria identified in Urine by Culture 2022-04-12 00:00:00 Test Item Value Reference Range Interpretation Comme nts Bacteria identified in Urine by Culture (test code = 630-4) no g rowth no growth [facility] MedicalReagin Ab [Presence] in Serum by [id number] 00:00:00 Test Item Value Reference Range Interpretation Comments Reagin Ab [Titer] in Serum (test non-reactive non-reactive code = 09814-1) [facility] panel - [id number] 00:00:00 Test Item Value Reference Range Interpretation Comments Hepatitis A virus IgM Ab non-reactive non-reactive [Units/volume] in Serum by Radioimmunoassay (KRYSTAL) (test code = 5182-1) Hepatitis B virus core Ab non-reactive non-reactive [Presence] in Serum (test code = 16322-2) Hepatitis B virus surface Ag non-reactive non-reactive [Presence] in Serum (test code = 5195-3) Hepatitis C virus Ab 0.12 S/co <0.80 Signal/Cutoff in Serum or Plasma by Immunoassay (test code = 30971-3) Hepatitis C virus Ab [Presence] non-reactive non-reactive in Serum or Plasma by Immunoassay (test code = 11093-4) [facility] Ab, [id number] 00:00:00 Test Item Value Reference Range Interpretation Comments HIV 1+2 Ab+HIV1 p24 Ag non-reactive non-reactive [Presence] in Serum or Plasma by Immunoassay (test code = 01353-9) [facility]Neisseria gonorrhoeae rRNA [Presence] in Urine by [id number] 00:00:00 Test Item Value Reference Range Interpretation Comments Chlamydia trachomatis rRNA negative negative [Presence] in Urine by ROYA with probe detection (test code = 25977-5) Neisseria gonorrhoeae rRNA negative negative [Presence] in Urine by ROYA with probe detection (test code = 78225-3) [facility] Center[facility]inalysis complete panel - [id number] 00:00:00 Test Item Value Reference Range Interpretation Comments Specific gravity of Urine 1.016 1.003-1.030 (test code = 2965-2) pH of Urine (test code = 7.0 5.0-8.0 2756-5) Protein [Presence] in Urine by negative negative Test strip (test code = 84656-4) Glucose [Presence] in Urine by negative negative Test strip (test code = 03532-2) Ketones [Presence] in Urine by negative negative Test strip (test code = 2514-8) Urobilinogen [Units/volume] in 1.0 mg/dL 0.2-1.0 Urine by Test strip (test code = 38224-8) Bilirubin.total [Presence] in negative negative Urine by Test strip (test code = 5770-3) Hemoglobin [Presence] in Urine negative negative by Test strip (test code = 5794-3) Nitrite [Presence] in Urine by negative negative Test strip (test code = 5802-4) Crystals [type] in Urine none none sediment by Light microscopy (test code = 5782-8) Leukocytes [#/area] in Urine 0-4 0-4 sediment by Microscopy high power field (test code = 5821-4) Erythrocytes [#/area] in Urine none seen none seen sediment by Microscopy high power field (test code = 27560-8) RBC casts [Presence] in Urine none seen 0-1 sediment by Light microscopy (test code = 18425-2) Hyaline casts [Presence] in 0-4 0-4 Urine sediment by Light microscopy (test code = 61524-3) Epithelial cells [Presence] in few none-few Urine sediment by Light microscopy (test code = 73886-2) Granular casts [Presence] in none seen 0-1 Urine sediment by Light microscopy (test code = 97364-4) Bacteria [Presence] in Urine none none-few sediment by Light microscopy (test code = 72320-3) Leukocyte esterase [Presence] negative negative in Urine by Test strip (test code = 5799-2) Color of Urine (test code = yellow yellow, straw, samia 5778-6) Character of Urine (test code clear clear = 60970-9) [facility] MedicalBacterial vaginosis DNA and score panel - Vaginal fluid by ROYA with probe [id number] 00:00:00 Test Item Value Reference Range Interpretation Comments bacterial vaginosis scrn.,DNA (test tnp code = bacterial vaginosis scrn.,DNA) [facility] CenterChlamydia trachomatis+Neisseria gonorrhoeae DNA [Presence] in Specimen by Probe with signal [id number] 00:00:00 Test Item Value Reference Range Interpretation Comments swab CT/GC (test code = swab CT/GC) [facility] MedicalT[facility] [id number] 11:39:00Surgical Pathology Report Case: [id number] Authorizing Provider: Khai Blum MD Collected: 06/23/2021 08:28 AM Ordering Location: [address] Med/Surg Received: 06/24/2021 10:12 AM Pathologist: Ce Iniguez MD Specimens: A) - Small Bowel, NOS B) - Biopsy, Gastric, remnant gastric biopsy This addendum is to report Edwin Bass results. EDWIN STARRY: NEGATIVE FOR H. PYLORI ORGANISMSAddendum electronically signed by Ce Iniguez MD on 06/26/2021 at 11:39 AMA. SMALL BOWEL, BIOPSY: - SMALL INTESTINAL MUCOSA WITH NO SIGNIFICANT PATHOLOGIC ALTERATIONB. GASTRIC REMNANT, BIOPSY: - OXYNTIC TYPE MUCOSA WITH MILD CHRONIC INACTIVE GASTRITIS - NO INTESTINAL METAPLASIA, DYSPLASIA OR MALIGNANCY SEEN - WARTHIN STARRY STAIN FOR H. PYLORI IS PENDING, ADDENDUM REPORT TO FOLLOW Signing Pathologist Direct Phone Line: [phone] signed by Ce Iniguez MD on 06/25/2021 at 11:15 AM/[id number] A. Small bowel NOS. B. Biopsy gastric remnant Specimen Areceived in fixative labeled with the patient's name [...] the use of immunohistochemistry or special stains.Sheyla Pineda StarRhonda Slides Examined: In-house known positive controls were evaluated along with the test tissue. These control slides run alongside of the patients sample show appropriate staining. Internal positive and negative controls when available are evaluated Immunohistochemistry technical testing was performed at [facility], Pathology Laboratory where it [...] the Clinical Laboratory Improvement Amendments of 1988 (CLIA- 88) as qualified to perform high complexity clinical laboratory testing.[facility], Department of Pathology, [address] [place] [address], Tgocbb [facility], Department of Pathology, [address] [place] [address], [facility], [facility], [address] [place] [address] 232[address], [facility], RBC 2021-06-25 09:55:00Unlisted Reason for Exam - Click Yes and Enter Reason Below->NoCH[facility] : 1960 Sex: FFINAL REPORT PROCEDURE: HEMORRHAGE STUDY with RBCs CPT CODE: 93000 INDICATION: Gastrointestinal Bleeding PROTOCOL: 28.0 mCi of Tc-99m was injected intravenously as labeled autologous red blood cells. Flow images of the abdomen were obtained, followed by serial images for approximately 60 minutes. Additional images were obtained 18 hours after tracer injection. FINDINGS: There is physiological tracer distribution in the blood pool. IMPRESSION: Negative study. No evidence of active hemorrhage is seen. Signed: Bony Grubbs MDReport Verified Date/Time: 06/25/2021 09:55:14 Reading Location: [address] Reading Room Electronically signed by: BONY GRUBBS MD on 05/28 09:55 AMBASIC METABOLIC [id number] 06:19:00 Test Item Value Reference Range Interpretation Comments SODIUM (BEAKER) 139 meq/L 135-148 (test code = 381) POTASSIUM (BEAKER) 3.4 meq/L 3.6-5.5 L (test code = 379) CHLORIDE (BEAKER) 107 meq/L 98-106 H (test code = 382) CO2 (BEAKER) (test 23 meq/L 20-29 code = 355) BLOOD UREA NITROGEN 11 mg/dL 10-26 (BEAKER) (test code = 354) CREATININE (BEAKER) 0.63 mg/dL 0.50-1.20 (test code = 358) GLUCOSE RANDOM 111 mg/dL 70-110 H (BEAKER) (test code = 652) CALCIUM (BEAKER) 8.8 mg/dL 8.5-10.5 (test code = 697) EGFR (BEAKER) (test 96 mL/min/1.73 ESTIMA CIARRA GFR IS code = 1092) sq m NOT ACCURATE CREATININE CLEARANCE IN PREDICTING GLOMERULAR FILTRATION RATE . ESTIMATED GFR I S NOT APPLICABLE FOR DIALYSIS PATIEN TS. Stamp Mounter ID - LITOOperator ID - LITOOperator ID - LITOOperator ID - LITOOperator ID - LITOOperator ID - LITOOperator ID - LITOOperator ID - LITOOperator ID - LITOOperator ID - [id number] 06:08:00 Test Item Value Reference Range Interpretation Comments MAGNESIUM (BEAKER) (test code = 1.9 mg/dL 1.5-3.0 627) Stamp Mounter ID - LITOOperator ID - LITOOperator ID - LITOOperator ID - LITOCBC W/PLT COUNT & AUTO [id number] 05:43:00 Test Item Value Reference Range Interpretation [...] 0-0 PERCENT (BEAKER) (test code = 2801) [id number] 05:20:00 Test Item Value Reference Range Interpretation Comments MAGNESIUM (BEAKER) (test code = 1.9 mg/dL 1.5-3.0 627) Stamp Mounter ID - YOIZ68Phngurmo ID - IUIX84Todpxynu ID - FKPL84Lawhnaos ID - ZRES04 BASIC METABOLIC [id number] 05:19:00 Test Item Value Reference Range Interpretation [...] S NOT APPLICABLE FOR DIALYSIS PATIEN TS. Stamp Mounter ID - YRMO87Hbfrjkkb ID - CBMR05Jcbabsyf ID - NEMB62Zhclwzvk ID - YJVE80Boxtnhgu ID - EMAB79Nkmvihqs ID - LLJT34Ccfxrcul ID - KNMW56Ijzrftbr ID - UHEJ82Vmpliiza ID - GDRJ07YKQ W/PLT COUNT & AUTO [id number] 04:59:00 Test Item Value Reference Range Interpretation [...] (test code = 2801) VITAMIN B12 AND [id number] 07:35:00 Test Item Value Reference Range Interpretation Comments VITAMIN B12 1390 pg/mL 211-911 H (BEAKER) (test code = 774) FOLATE (BEAKER) 13.60 ng/mL See_Comment [Automated message] (test code = 362) The system which generated this result transmitted ref erence range: >=5.4. T he reference range was not used to interpr et this result as normal/abnormal . Stamp Mounter ID - LVLKP872Bawzajwg ID - [id number], TIBC, % SAT. (WITHOUT FERRITIN)2021-06-23 07:12:00 Test Item Value Reference Range Interpretation Comments IRON (BEAKER) (test code = 547) 84.0 ug/dL 45.0-170.0 TOTAL IRON BINDING CAPACITY 341 ug/dL 250-550 (BEAKER) (test code = 769) IRON % SATURATION (2) (BEAKER) 25 % 20-55 (test code = 2590) Stamp Mounter ID - DXBH22Dfrfybty ID - ROJG64ADHSO METABOLIC [id number] 07:12:00 Test Item Value Reference Range Interpretation Comments SODIUM (BEAKER) 143 meq/L 135-148 (test code = 381) POTASSIUM (BEAKER) 3.8 meq/L 3.6-5.5 (test code = 379) CHLORIDE (BEAKER) 115 meq/L 98-106 H (test code = 382) CO2 (BEAKER) (test 20 meq/L -29 code = 355) BLOOD UREA NITROGEN 6 [...] S NOT APPLICABLE FOR DIALYSIS PATIEN TS. Stamp Mounter ID - VMNH10Sytcojwn ID - TKIP55Nwqigxwe ID - AXJI60Etwvifrg ID - CKBC88Ijjsqnfb ID - KIOM58Ixddseyw ID - VWHR08Nihtgeba ID - USZM27Zhvuwbgz ID - QVUE49Ugozcbsc ID - QDHW41Shwpepyl ID - [id number] 06:45:00 Test Item Value Reference Range Interpretation Comments MAGNESIUM (BEAKER) (test code = 2.0 mg/dL 1.5-3.0 627) Stamp Mounter ID - MAZO20Saxvjmqg ID - IJWN83Xdjprjzg ID - LVWA38Onczdcor ID - ZRES04 C-REACTIVE [id number] 06:42:00 Test Item Value Reference Range Interpretation Comments C-REACTIVE PROTEIN (BEAKER) (test 0.02 mg/dL 0.00-0.50 code = 676) Stamp Mounter ID - YTGQ75IMJ W/PLT COUNT & AUTO [id number] 06:29:00 Test Item Value Reference Range Interpretation [...] (BEAKER) (test code = 2801) HEMOGLOBIN AND [id number] 20:22:00 Test Item Value Reference Range Interpretation Comments HEMOGLOBIN (BEAKER) (test code = 8.6 GM/DL 12.0-15.5 L 410) HEMATOCRIT (BEAKER) (test code = 26.6 % 36.0-46.0 L 411) URINALYSIS W/ REFLEX URINE [id number] 16:52:00 Test Item Value Reference Range Interpretation [...] (test code = 2795) MR, BRAIN, WITHOUT [id number] 14:05:00Outside CT head unremarkable.Unlisted Reason for Exam - Click Yes and Enter Reason Below->No [facility] : 1960 Sex: FFINAL [...] MDReport Verified Date/Time: 06/22/2021 14:05:16 Reading Location: [address] Neuro Reading Room Electronically signedby: SHAWN FUENTES M.D. on 06/22/2021 02:05 PMCOMPREHENSIVE METABOLIC [id number] 09:28:00 Test Item Value Reference Range Interpretation [...] S NOT APPLICABLE FOR DIALYSIS PATIEN TS. Stamp Mounter ID - [id number] ID - DJQGT877Pfqgseef ID - PYIWP790Ewudighi ID - KKQZO236Qhkocoop ID - HXHWN138Ipnhsims ID - WCTCX679Cjqrywnu ID - SYXWQ791Iwnprrle ID - AMGGT622Tkpagyza ID - AOOFM872Xjqouscd ID - HLUMX862Nxgfvxqo ID - ITPUT967Ueftwzvx ID - LZJDP786Zgcxtxnd ID - IOAMI665Pnftqdxj ID - NGITX348Bunjixcf ID - SYDHP978Hutklhln ID - LWNTW371Acyebile ID - SSEKT360Jnpojrus ID - UWMGQ841Phyjfejs ID - [id number] HEMOGLOBIN AND [id number] 09:10:00 Test Item Value Reference Range Interpretation Comments HEMOGLOBIN (BEAKER) (test code = 7.5 GM/DL 12.0-15.5 L 410) HEMATOCRIT (BEAKER) (test code = 23.1 % 36.0-46.0 L 411) CBC W/PLT COUNT & AUTO [id number] 05:59:00 Test Item Value Reference Range Interpretation [...] PERCENT (BEAKER) (test code = 2801) SARS-COV2/RT-PCR ([facility])2021-06-21 18:53:00 Test Item Value Reference Range Interpretation Comments SARS-COV2/RT-PCR Negative Negative The SARS-Co V-2 target (test code = nucleic acids a re not [id number]) detected in thi s specimen. Negative result [...] revoked sooner. Fact Sheet for Healthcare Providers: https://www.BringMe[employer] m/Documents/Xpert%20Xpress%20SARS%20CoV-2/Fact%20Sheets/302-3802%87FOOQ-PKQ-3%20 HEALTHCARE%20PROVIDERS%20FACT%20SHEET.pdf Fact Sheet for Healthcare Patients: https://www.[employer]/Documents/Xpert%20Xp ress%20SARS%20CoV-2/Fact%20Sheets/302-3801%84SSHL-OGT-8%20PATIENT%20FACT%20SHEET .pdfCBC W/PLT COUNT & AUTO [id number] 16:35:00 Test Item Value Reference Range Interpretation [...] PERCENT (BEAKER) (test code = 2801) TROPONIN [id number] 16:09:00 Test Item Value Reference Range Interpretation [...] failure, acidosis, acute neurological disease, and persistent tachyarrhythmia.Stamp Mounter ID - [id number] 16:03:00 Test Item Value Reference Range Interpretation Comments PROTIME (BEAKER) 11.1 seconds 9.3-12.0 Final Infor mation (test code = 759) (Auto Outp ut) INR (BEAKER) (test 1.00 See_Comment Final Inf ormation code = 370) (Auto Output) [Automated mess age] The system [employer] generated this result transmitted ref erence range: <=5.90. The reference range was not used to int erpret this result as normal/abnormal . RECOMMENDED COUMADIN/WARFARIN INR THERAPY RANGESSTANDARD DOSE: 2.0 - 3.0 Includes: PROPHYLAXIS for venous thrombosis, systemic embolization; TREATMENT for venous thrombosis and/or pulmonary embolus.HIGH RISK: Target INR is 2.5-3.5 for patients with mechanical heart valves.[id number] 16:03:00 Test Item Value Reference Range Interpretation Comments PARTIAL THROMBOPLASTIN 26.8 seconds 23.0-35.0 Final Information TIME (BEAKER) (test (Auto Ou tput) code = 760) Notes Date/Time Note Provider Source 2021-06-25 23:52:21-00:00 KHAI BLUM [facility] PROGRESS NOTE [employer] FACILITY: [facility] Billing #: [id number] Room: [address] [place] [address] MR #: [id number] : 1960 PHYSICIAN: Khai Blum MD ADMISSION DATE: 06/21/2021 DATE: SUBJECTIVE: Ms. Law did have a GI bleeding s can, which as expected was negative. There is no evidence of a ny ongoing bleeding. There is no associated nausea or vomit ing. The patient's symptoms, however, the way she describ es sounds more acute to subacute rather than chronic, which wou ld be consistent with iron deficiency and certainly th is needs further merits for the consideration for workup. OBJECTIVE: VITAL SIGNS: Stable. See chart. HEENT: No icterus was noted. CHEST: Clear. ABDOMEN: Soft. IMPRESSION: 1. Status post bariatric surgery. 2. Anemia multifactorial. 3. Constitutional symptoms. PLAN: I have told the patient that as an outpati ent, she would benefit from a pill camera and I have given her my number and advised her to call and make an appointment and I will be happy to go ahead and schedule a pill camera for her t o further evaluate the small bowel. NM/MODL /[id number] 2021-06-24 11:59:48-00:00 KHAI BLUM [facility] CONSULTATION [employer] FACILITY: [facility] Billing #: [id number] Room: [address] [place] [address] MR #: [id number] : 1960 DATE OF ADMISSION: 06/21/2021 DATE OF CONSULTATION: REQUESTING PHYSICIAN: LICENSED PSYCHOLOGIST MANAGER: Khai Blum MD SUBJECTIVE: Ms. Law overall has remained sta ble. She did mention at one point she had black stools, so du ring endoscopy we did not find black stools. There is no eviden ce of any ongoing bleeding and currently the patient is ge tting IV iron. OBJECTIVE: VITAL SIGNS: Temperature was 97.6, he art rate 78, respirations 18, and the blood pressure is 101/5 5. HEENT: No icterus was noted. CHEST: Clear. ABDOMEN: Soft. No tenderness noted. No masses we re felt. LABORATORY DATA: The hematocrit was 23.7 with an MCV of 88. IMPRESSION: Anemia, question etiology. One possi bility was the partial gastrectomy, though the other concer n is whether she had GI loss also. At one point, she mentione d that the stool was black. Vitamin B12 and folate levels w ere reasonable. PLAN: Overall, the patient is asymptomatic. I chen ve given her my card and I have advised her to follow up with me so we can schedule her for a pill camera. She was also delmer d that if she sees any more black stools, she needs to come to the emergency room right away as she does not have a very high hematocrit and if there is a further fall she will be symptomat ic. NM/MODL /[id number] 2021-06-23 10:45:36-00:00 [facility] OPERATIVE/PROCEDURE REPORT [employer] FACILITY: [facility] Billing #: [id number] Room: [address] [place] [address] MR #: [id number] : 1960 DATE OF PROCEDURE: 06/23/2021 SURGEON: Khai Blum MD PROCEDURES: 1. Upper gastrointestinal endoscopy and biopsy. 2. Colonoscopy. INDICATIONS FOR PROCEDURE: Marked anemia and lik mega GI bleed. PREMEDICATIONS: See chart. INTRAPROCEDURE MEDICATIONS: See chart. DESCRIPTION OF PROCEDURE: An Olympus upper endos cope was introduced into the hypopharyngeal area and adva nced all the way to the small bowel. The patient had a Delta-e n-Y anastomosis and only about 30 mL of the stomach was left, which appeared normal except for minimal erythema and this was biopsied. The esophagus appeared normal. The sma ll bowel appeared normal. No anastomotic ulcer. No erosio ns or deformity was noted and the mucosa appeared norm al, and no stricture was seen. Small bowel biopsies obtaine d also. The scope then was withdrawn. An Olympus colonos cope was introduced into the rectum and advanced all the way to the bottom of the cecum. Of note is the fact that th e prep was highly suboptimal with stool present throughout the colon, which was repeatedly washed and lavaged, 20% to 30% of the mucosa was not seen well. No evidence of any act dayanara bleeding or old blood was seen. No polypoid lesions or ma sses were identified. The patient tolerated the procedure well. IMPRESSION: 1. Delta-en-Y anastomosis in the stomach without any evidence of pathology. 2. Suboptimal colonoscopy. RECOMMENDATIONS: I will go and advance the patie nt's diet and follow. The anemia possibly is multifactorial as MCV is normal. I have sent the iron studies, B12 and fo late. The patient has had a partial gastrectomy, so may al so be B12 deficient. I will advance the diet, and from my standpoint most of the workup can be pursued as an outpatie nt. NM/MODL /[id number] 2021-06-22 10:56:39-00:00 [facility] BL[facility] CONSULTATION [employer] FACILITY: [facility] Billing #: [id number] Room: [address] [place] [address] MR #: [id number] : 1960 DATE OF ADMISSION: 06/21/2021 DATE OF CONSULTATION: REQUESTING PHYSICIAN: LICENSED PSYCHOLOGIST MANAGER: Khai Blum MD Gastroenterology Consultation REASON FOR CONSULTATION: Marked anemia, tirednes s, and fatigue with possible GI bleed. HISTORY OF PRESENT ILLNESS: The patient is a 60- year-old female, who was transferred from an outside [facility]. The patient had gone there as she was feeling ve ry tired and weak and had her hemoglobin down in the 5 to 6-p oint gram range. This was in the [facility] and she was transferred from there. The patient denies any nausea or vomiting. She d enies having any pica. She has not noticed any alteration in bowel habits. PAST MEDICAL HISTORY: Otherwise unremarkable exc ept for the fact that the patient has had gastric bypass aruna maurice several years ago. She has not had an EGD and a colonosc opy for the past several years. She has a history of migrain e for which, she gets Botox. REVIEW OF SYSTEMS: A detailed review of systems is obtained and was predominantly remarkable for constitutional symptoms of tiredn ess, fatigue, weakness, lethargy. Otherwise, the review of sys tems was negative. PAST SURGICAL HISTORY: Remarkable for gastric by pass as above. PHYSICAL EXAMINATION: GENERAL: A female, who appeared comfortable and did not appear in any distress. VITAL SIGNS: Temperature is 97.4, heart rate 68, respirations 17, blood pressure 109/57. HEENT: No icterus is noted. External ocular move ments are intact. Throat is clear. NECK: Supple. HEART: She had S1, S2, S3. No S4 is noted. No mu rmurs, rubs, or gallops heard. ABDOMEN: Soft with positive bowel sounds. No ten derness noted. No masses are felt. EXTREMITIES: Without any cyanosis, clubbing, or edema. IMPRESSION: 1. GI bleed. 2. Anemia. 3. Constitutional symptoms of tiredness and fati karolina. The anemia may be from iron deficiency from inab ility to absorb iron because of the gastric bypass, though certa inly GI losses need to be looked into. The fact that she has no rmal MCV, will also lead to further evaluation to see if she chen s any B12 or folate deficiency. I will go and order these and also give her some iron and proceed with both an EGD and a col onoscopy on Thursday. Thank you for the courtesy of your referral. NM/MODL /[id number]
[2023-04-15] MEDS ORDERED: KETOROLAC 30 MG/ML INJ ONE (14:24)
[2023-04-15] MEDS ORDERED: NA CHLORIDE 0.9% 1,000 ML ONE (14:24)
[2023-04-15] MEDS ORDERED: ONDANSETRON 4 MG/2 ML VIAL ONE (14:24)
[2023-04-15] MEDS ORDERED: FENTANYL CITR 100 MCG/2 ML ONE (14:24)
[2023-04-15 15:12] LABS: Absolute Lymphocytes (CBC) 1.5 K/uL (0.7-4.9); Hematocrit 47.4 % (36.0-45.0); Lymphocytes % 21.6 % (15.3-44.8); MCV 90.6 fL (80-100); MPV 8.2 fL (7.6-11.3); RBC Red Blood Cell Count 5.23 M/uL (3.86-4.86)
[2023-04-15 15:33] LABS: Albumin 3.6 g/dL (3.4-5.0); Bilirubin Direct 0.2 mg/dL (0-0.2); Bilirubin Indirect, Calculated 0.5 mg/dL (0.2-0.8); Bilirubin Total 0.7 mg/dL (0.2-1.0); Potassium 3.6 mEq/L (3.5-5.1); Protein, Total 8.1 g/dL (6.4-8.2); Troponin High Sensitivity 7.8 pg/mL (<58.9)
--- NOTE | 2023-04-15 15:44 | RAD REPORT ---
EXAM DESCRIPTION: Shoulder Left 2 View - 04/15/2023 3:10 pm CLINICAL HISTORY: PAIN COMPARISON: No comparisons TECHNIQUE: Internal and external rotation views of the right shoulder were obtained. FINDINGS: There is no fracture or dislocation. Oozg-hz-uqxcsbxm glenohumeral joint degenerative bryan ges. AC joint is normal in appearance. No acute or suspicious findings. IMPRESSION: No acute osseus abnormality. Nxuh-xa-oymbjtrf glenohumeral joint degenerative changes.
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
[2023-04-15 17:19] LABS: Urine Bacteria 20-50 /HPF (<20); Urine Bilirubin NEGATIVE (Negative); Urine Blood Negative (Negative); Urine Clarity Clear (Clear); Urine Color Light-Yellow (Yellow); Urine Glucose NEGATIVE (Negative); Urine Mucus Slight /HPF (None Seen); Urine Protein TRACE (Negative); Urine Urobilinogen Normal (Normal)
[2023-04-15 17:22] LABS: Specific Gravity > 1.030 (1.005-1.030)
[2023-04-15 19:13] VITALS: TEMP 98; O2SAT 100
[2023-04-15 19:21] VITALS: BP 132/64
--- NOTE | 2023-04-16 17:42 | EKG ---
Test Date: 2023-04-15 Test Time: 14:14:56 Aircraft Communicator: NEISHA MEASUREMENT RESULTS: Intervals: Rate: 71 CA: 168 QRSD: 86 QT: 360 QTc: 391 [place]: P: 37 CA: 168 QRS: 47 T: 60 INTERPRETIVE STATEMENTS: Normal sinus rhythm Normal ECG Compared to ECG 06/02/2022 04:22:09 Sinus bradycardia no longer present Electronically Signed On 04-16-23 17:39:44 CDT by Elan Medina
== END 2023-04-15 18:55 | disposition home or self-care (01) ==
LOC: ER 13:06
DX: S09.90XA Unspecified injury of head, initial encounter (principal); S16.1XXA Strain of muscle, fascia and tendon at neck level, initial encounter; S29.012A Strain of muscle and tendon of back wall of thorax, initial encounter; S29.011A Strain of muscle and tendon of front wall of thorax, initial encounter; S70.01XA Contusion of right hip, initial encounter; Y04.8XXA Assault by other bodily force, initial encounter
CPT/HCPCS: 85025; 81001; 80048; 36415; 86900; 86850; 86901; 80076; 84484; 83690; 70450; 72125; 71260; 74177; 73030; Q9967; J3010; J2405; J7030; 93005

== ENCOUNTER 2024-03-24 01:58 | Emergency (ER) | payer OTHER ==
[2024-03-24] MEDS ORDERED: predniSONE 20 MG TAB ONE (03:02)
[2024-03-24] MEDS ORDERED: HYDROCODONE/APAP 5/325 MG TAB ONE (03:03)
[2024-03-24] MEDS ORDERED: KETOROLAC 30 MG/ML INJ ONE (03:03)
[2024-03-24] MEDS ORDERED: TRAMADOL HCL 50 MG TAB ONE (03:47)
--- NOTE | 2024-03-24 05:02 | ER ---
Nurse's Notes [facility] Name: Lian Alberts Age: 63 yrs Sex: Female : 1960 Arrival Date: 03/24/2024 Time: 01:58 Bed DX3 Private MD: Diagnosis: Contusion of right foot;Contusion of left foot;Left fifth toe proximal phalangeal fracture without displacement, left hand contusion, left hand sprain, acute fall, right hip contusion Presentation: 03/24 02:18 Chief complaint: Patient states: Fell about 2 weeks ago and hit bilateral legs and left vc1 hand. Left fingers swollen, ring stuck, hip pain. Coronavirus screen: At this time, the client does not indicate any symptoms associated with coronavirus-19. Ebola Screen: Patient negative for fever greater than or equal to 101.5 degrees Fahrenheit, and additional compatible Ebola Virus Disease symptoms Patient denies exposure to infectious person. Patient denies travel to an Ebola-affected area in the 21 days before illness onset. No symptoms or risks identified at this time. Initial Sepsis Screen: Does the patient meet any 2 criteria? No. Patient's initial sepsis screen is negative. Does the patient have a suspected source of infection? No. Patient's initial sepsis screen is negative. Risk Assessment: Do you want to hurt yourself or someone else? Patient reports no desire to harm self or others. Onset of symptoms is unknown. 02:18 Method Of Arrival: Wheelchair vc1 02:18 Acuity: TIMOTHY 3 vc1 Triage Assessment: 02:34 General: Appears in no apparent distress. uncomfortable, Behavior is calm, cooperative, vc1 appropriate for age. Pain: Complains of pain in left and right temple right hip left hand. Respiratory: Airway is patent Respiratory effort is even, unlabored, Respiratory pattern is regular, symmetrical. Derm: Skin is intact, is healthy with good turgor, Skin is dry, Skin is normal. Musculoskeletal: Swelling present in left hand. Historical: - Allergies: 02:20 No Known Allergies; vc1 - PMHx: 02:20 bleeding ulcer; Chronic migraines; Paroxysmal Atrial Fibrillation; PTSD; vc1 - PSHx: 02:20 bariatric surgery; vc1 - Immunization history:: Client reports receiving the 2nd dose of the Covid vaccine, Flu vaccine is not up to date. - Infectious Disease History:: Denies. - Social history:: Smoking status: Patient denies any tobacco usage or history of. - Family history:: not pertinent. Screenin:[facility] ED Fall Risk Assessment (Adult) History of falling in the last 3 months, vc1 including since admission Yes- physiologic fall (2 pts) Confusion or Disorientation No (0 pts) Intoxicated or Sedated No (0 pts) Impaired Gait Mobility Assist Device Used No (0 pt) Altered Elimination No (0 pt) Score/Fall Risk Level 0 - 2 = Low Risk Oriented to surroundings, Maintained a safe environment, Educated pt \T\ family on fall prevention, incl call for assistance when getting out of bed. Abuse screen: Denies threats or abuse. Nutritional screening: No deficits noted. Tuberculosis screening: No symptoms or risk factors identified. Assessment: 02:30 Reassessment: See triage assessment. vc1 05:00 Reassessment: Patient appears in no apparent distress at this time. No changes from vc1 previously documented assessment. Patient and/or family updated on plan of care and expected duration. Pain level reassessed. Patient is alert, oriented x 3, equal unlabored respirations, skin warm/dry/pink. Vital Signs: 02:18 Weight 56.7 kg; Height 5 ft. 0 in. ; Pain 10/10; vc1 02:36 BP 120 / 67; Pulse 80; Resp 17; Temp 97.9; Pulse Ox 98% ; vc1 05:00 BP 118 / 64; Pulse 82; Resp 17; Temp 98; Pulse Ox 100% ; vc1 02:18 Body Mass Index 24.41 (56.70 kg, 152.4 cm) vc1 02:18 Pain Scale: Adult vc1 [place] Coma Score: 05:36 Eye Response: spontaneous(4). Motor Response: obeys commands(6). Verbal Response: sp4 oriented(5). Total: 15. ED Course: 02:05 Patient arrived in ED. gm2 02:20 Triage completed. vc1 02:21 Arm band placed on right wrist. vc1 02:29 Ghulam Fowler MD is Attending Physician. sp4 02:34 Patient has correct armband on for positive identification. placed in diagnostic chair. vc1 03:16 Foot Left 3 View XRAY In Process Unspecified. EDMS 03:17 Ankle Left 3 View XRAY In Process Unspecified. EDMS 03:17 Foot Right 3 View XRAY In Process Unspecified. EDMS 03:17 Ankle Right 3 View XRAY In Process Unspecified. EDMS 03:17 Pelvis XRAY In Process Unspecified. EDMS 03:17 Hand Left 3 View XRAY In Process Unspecified. EDMS 05:12 Marla Oliva, RN is Primary Nurse. vc1 05:15 Provided Education on: steroids, f/u with ortho. vc1 05:15 No provider procedures requiring assistance completed. Patient did not have IV access vc1 during this emergency room visit. Administered Medications: 03:14 Drug: HYDROcodone-acetaminophen PO 5 mg-325 mg 2 tabs PO once Route: PO; vc1 03:30 Follow up: Response: No adverse reaction; Marked relief of symptoms vc1 03:14 Drug: predniSONE PO 60 mg PO once Route: PO; vc1 03:30 Follow up: Response: No adverse reaction vc1 03:14 Drug: Ketorolac IM 60 mg IM once {Note: 30 mg in right deltoid 30 mg in left deltoid.} vc1 Route: IM; Site: Other; 03:30 Follow up: Response: No adverse reaction; No change in condition vc1 03:49 Drug: traMADol PO 50 mg PO once Route: PO; vc1 05:00 Follow up: Response: No adverse reaction; No change in condition vc1 Medication: 02:37 VIS not applicable for this client. vc1 Outcome: 05:01 Discharge ordered by . daniel 05:15 Discharged to home ambulatory, vc1 05:15 Condition: improved 05:15 Discharge instructions given to patient, Instructed on discharge instructions, follow up and referral plans. medication usage, Demonstrated understanding of instructions, follow-up care, medications, Prescriptions given X 3, 05:18 Patient left the ED. cm10 Signatures: Dispatcher [employer] EDMS Marla Oliva, NGOZI RN vc1 Ghulam Fowler MD MD sp4 Asha Reveles RN RN cm10 Meghan Ricks 2
--- NOTE | 2024-03-24 05:02 | EDPHYS ---
Physician Documentation [facility] Name: Lian Alberts Age: 63 yrs Sex: Female : 1960 Arrival Date: 03/24/2024 Time: 01:58 Bed DX3 Private MD: ED Physician Ghulam Fowler HPI: 03/24 02:29 This 63 yrs old Female presents to ER via Wheelchair with complaints of Fall sp4 Injury, Finger Injury, Foot Pain. 02:38 63-year-old female presents for evaluation of the left and the right foot pain also sp4 left hand pain and swelling also right hip pain all starting 2 weeks ago after she fell at the hotel.. Historical: - Allergies: 02:20 No Known Allergies; vc1 - PMHx: 02:20 bleeding ulcer; Chronic migraines; Paroxysmal Atrial Fibrillation; PTSD; vc1 - PSHx: 02:20 bariatric surgery; vc1 - Immunization history:: Client reports receiving the 2nd dose of the Covid vaccine, Flu vaccine is not up to date. - Infectious Disease History:: Denies. - Social history:: Smoking status: Patient denies any tobacco usage or history of. - Family history:: not pertinent. ROS: 05:36 Constitutional: Negative for fever, chills, and weight loss, positive for right foot sp4 pain, positive left foot pain, positive left hand pain, positive left hand swelling, positive for right hip pain 05:36 All other systems are negative, Exam: 05:36 Constitutional: This is a well developed, well nourished patient who is awake, alert, sp4 and in no acute distress. Head/Face: Normocephalic, atraumatic. Eyes: Pupils equal round and reactive to light, extra-ocular motions intact. Lids and lashes normal. Conjunctiva and sclera are not injected. Cornea within normal limits. Periorbital areas with no swelling, redness, or edema. ENT: Nares patent. No nasal discharge, no septal abnormalities noted. Tympanic membranes are normal and external auditory canals are clear. Oropharynx with no redness, swelling, or masses, exudates, or evidence of obstruction, uvula midline. Mucous membranes moist. Neck: Trachea midline, no thyromegaly or masses palpated, and no cervical lymphadenopathy. Supple, full range of motion without nuchal rigidity, or vertebral point tenderness. Chest/axilla: Normal chest wall appearance and motion. Nontender with no deformity. No lesions are appreciated. Cardiovascular: Regular rate and rhythm with a normal S1 and S2. No gallops, murmurs, or rubs. Normal PMI, no JVD. No pulse deficits. Respiratory: Lungs have equal breath sounds bilaterally, clear to auscultation and percussion. No rales, rhonchi or wheezes noted. No increased work of breathing, no retractions or nasal flaring. Abdomen/GI: Soft, with normal bowel sounds. No distension or tympany. No guarding or rebound. No evidence of tenderness throughout. Back: No spinal tenderness. No costovertebral tenderness. Skin: Warm, dry with normal turgor. Normal color with no rashes, no lesions, and no evidence of cellulitis. MS/ Extremity: Pulses equal, no cyanosis. Neurovascular intact. Full, normal range of motion. Positive mild left hand swelling and left hand tenderness, positive swelling over left ring finger, positive left foot tenderness, positive right foot tenderness without swelling or deformity. Normal gait Neuro: Awake and alert, GCS 15, oriented to person, place, time, and situation. Cranial nerves II-XII grossly intact. Motor strength 5/5 in all extremities. Sensory grossly intact. Psych: Awake, alert, with orientation to person, place and time. Behavior, mood, and affect are within normal limits Vital Signs: 02:18 Weight 56.7 kg; Height 5 ft. 0 in. ; Pain 10/10; vc1 02:36 BP 120 / 67; Pulse 80; Resp 17; Temp 97.9; Pulse Ox 98% ; vc1 05:00 BP 118 / 64; Pulse 82; Resp 17; Temp 98; Pulse Ox 100% ; vc1 02:18 Body Mass Index 24.41 (56.70 kg, 152.4 cm) vc1 02:18 Pain Scale: Adult vc1 Ginette Coma Score: 05:36 Eye Response: spontaneous(4). Motor Response: obeys commands(6). Verbal Response: sp4 oriented(5). Total: 15. Procedures: 05:43 Splinting: Splint applied to left Achilles, left heel, anterior aspect of left ankle sp4 and dorsum of left foot using Ortho 3D boot, applied by myself. Examined by me, post splint application: neurovascular intact, 2+ distal pulses palpable, brisk capillary refill noted, Patient tolerated well, Advised to wear Ortho boot for the next 2 weeks. Secondary to left fifth toe proximal phalanx fracture. MDM: 02:38 Patient medically screened. sp4 04:44 ED course: EXAM: Ankle Left 3 View XR Left Ankle 3 Views HISTORY: pain COMPARISON: None sp4 TECHNIQUE: Left Ankle 3 Views FINDINGS: No fracture or dislocation. No significant sclerotic/lytic bone lesion. Joint spaces unremarkable. Soft tissues unremarkable. IMPRESSION: Unremarkable Left Ankle Radiographs. . ED course: EXAM DESCRIPTION: RAD - Foot Left 3 View - 12/05/2023 2:57 pm CLINICAL HISTORY: fall COMPARISON: Foot Right 3 View dated 12/05/2023; Pelvis dated 12/05/2023 FINDINGS/IMPRESSION: Transversely oriented fracture with slight lateral displacement at the fifth proximal phalanx mid diaphysis. No other fractures No malalignment. Degenerative changes of the first MTP. . 04:49 ED course: EXAM: Pelvis 1 View HISTORY: Right hip pain COMPARISON: Pelvis 1 View sp4 12/05/2023 TECHNIQUE: Pelvis 1 View FINDINGS: No fracture or dislocation. No significant sclerotic/lytic bone lesion. Partially-imaged posterior lumbar spinal fusion hardware reidentified. Mild bilateral hip joint space narrowing. Small round inferolateral left pelvic calcification likely represents phlebolith. IMPRESSION: 1. Mild bilateral hip joint space narrowing. 2. Posterior lumbar spinal fusion hardware. . ED course: TECHNIQUE: XR FOOT 3 OR MORE VIEWS LEFT 03/24/2024 2:37 AM CDT FINDINGS: There is an old fracture of the midshaft of the proximal fifth phalanx. There is mild to moderate narrowing of the first MTP joint. Soft tissues are unremarkable. IMPRESSION: No acute osseous findings. . 04:52 ED course: EXAM: Ankle Left 3 View XR Left Ankle 3 Views HISTORY: pain COMPARISON: None sp4 TECHNIQUE: Left Ankle 3 Views FINDINGS: No fracture or dislocation. No significant sclerotic/lytic bone lesion. Joint spaces unremarkable. Soft tissues unremarkable. IMPRESSION: Unremarkable Left Ankle Radiographs. . 04:52 ED course: TECHNIQUE: XR FOOT 3 OR MORE VIEWS RIGHT 03/24/2024 2:37 AM CDT FINDINGS: sp4 There is evidence of an old distal tibial fracture. Joint spaces are preserved. There is mild soft tissue swelling throughout the foot. IMPRESSION: No definite acute fracture.. ED course: TECHNIQUE: XR ANKLE 3 OR MORE VIEWS RIGHT 03/24/2024 2:37 AM CDT FINDINGS: There is an old fracture of the distal tibia. Joint spaces are preserved. There is mild diffuse soft tissue swelling. IMPRESSION: No acute osseous findings. . 05:36 Differential diagnosis: abrasion, contusion, fracture, laceration, multiple trauma, sp4 sprain, strain. Data reviewed: vital signs, nurses notes, radiologic studies, plain films. ED course: EXAM: Hand Left 3 View XR Left Hand 3 Views HISTORY: pain, swelling COMPARISON: None TECHNIQUE: Left Hand 3 Views FINDINGS: Ring obscures left 4th digit proximal phalanx and bracelet obscures distal left radius/ulna. No fracture or dislocation. No significant sclerotic/lytic bone lesion. Moderate 1st carpometacarpal joint space narrowing. Soft tissues unremarkable. IMPRESSION: Moderate left 1st carpometacarpal DJD.. 03/24 02:37 Order name: Foot Left 3 View XRAY sp4 03/24 02:37 Order name: Ankle Left 3 View XRAY sp4 03/24 02:37 Order name: Foot Right 3 View XRAY sp4 03/24 02:37 Order name: Ankle Right 3 View XRAY sp4 03/24 02:37 Order name: Pelvis XRAY sp4 03/24 02:38 Order name: Hand Left 3 View XRAY sp4 03/24 04:54 Order name: Orthopedic shoe: left foot ortho boot application; Complete Time: 05:12 sp4 Administered Medications: 03:14 Drug: HYDROcodone-acetaminophen PO 5 mg-325 mg 2 tabs PO once Route: PO; vc1 03:30 Follow up: Response: No adverse reaction; Marked relief of symptoms vc1 03:14 Drug: predniSONE PO 60 mg PO once Route: PO; vc1 03:30 Follow up: Response: No adverse reaction vc1 03:14 Drug: Ketorolac IM 60 mg IM once {Note: 30 mg in right deltoid 30 mg in left deltoid.} vc1 Route: IM; Site: Other; 03:30 Follow up: Response: No adverse reaction; No change in condition vc1 03:49 Drug: traMADol PO 50 mg PO once Route: PO; vc1 05:00 Follow up: Response: No adverse reaction; No change in condition vc1 Disposition Summary: 03/24/24 05:01 Discharge Ordered Notes: Location: Home sp4 Problem: new sp4 Symptoms: have improved sp4 Condition: Stable sp4 Diagnosis - Contusion of right foot sp4 - Contusion of left foot sp4 - Left fifth toe proximal phalangeal fracture without displacement, left hand sp4 contusion, left hand sprain, acute fall, right hip contusion Followup: sp4 - With: Private Physician - When: 7 - 10 days - Reason: Recheck today's complaints Discharge Instructions: - Discharge Summary Sheet sp4 - Foot Contusion, [id number] sp4 Forms: - Work release form vc1 - Patient Portal Instructions sp4 Prescriptions: - naproxen 500 mg Oral tablet - take 1 tablet ORAL route every 12 hours PRN pain; 60 tablet; Refills: 0, sp4 Product Selection Permitted - Tramadol 50 mg Oral tablet - take 1 tablet ORAL route every 8 hours as needed; 20 tablet; Refills: 0, sp4 Product Selection Permitted - Prednisone 20 mg Oral Tablet - take 2 tablets ORAL route once daily for 5 days; 10 tablet; Refills: 0, Product sp4 Selection Permitted Signatures: Dispatcher [employer] EDMarla Moraes RN RN vc1 Ghulam Fowler MD MD sp4 Corrections: (The following items were deleted from the chart) 02:37 02:37 Ankle Right 3 View+RAD.RAD.BRZ ordered. EDMS EDMS 02:38 02:38 Hand Left 3 View+RAD.RAD.BRZ ordered. EDMS EDMS
[2024-03-24 05:47] VITALS: BP 120/67; TEMP 97.9; O2SAT 98
--- NOTE | 2024-03-24 10:58 | RAD REPORT ---
EXAM DESCRIPTION: RAD - Hand Left 3 View - 03/24/2024 3:15 am XR Left Hand 3 Views CLINICAL HISTORY: Pain, swelling COMPARISON: None TECHNIQUE: Left Hand 3 Views FINDINGS: Ring obscures left 4th digit proximal phalanx and bracelet obscures distal left radius/uln a. No fracture or dislocation. No significant sclerotic/lytic bone lesion. Moderate 1st carpometacarpal joint space narrowing. Soft tissues unremarkable. IMPRESSION: Moderate left 1st carpometacarpal DJD. Electronically signed by: Koko Rivers MD 03/24/2024 05:07 AM CDT RP Due to temporary technical issues with the PACS/Fluency reporting system, reports are being signed by the in house radiologist without review as a courtesy to ensure prompt reporting. The interpreting r adiologist is fully responsible for the content of the report.
--- NOTE | 2024-03-24 11:03 | RAD REPORT ---
EXAM DESCRIPTION: RAD - Pelvis - 03/24/2024 3:15 am CLINICAL HISTORY: Right hip pain COMPARISON: Pelvis 1 View 12/05/2023 TECHNIQUE: Pelvis 1 View FINDINGS: No fracture or dislocation. No significant sclerotic/lytic bone lesion. Partially-imaged posterior lumbar spinal fusion hardware reidentified. Mild bilateral hip joint space narrowing. Small round inferolateral left pelvic calcification likely represents phlebolith. IMPRESSION: 1. Mild bilateral hip joint space narrowing. 2. Posterior lumbar spinal fusion hardware. Electronically signed by: Koko Rivers MD 03/24/2024 04:44 AM CDT RP Due to temporary technical issues with the PACS/Fluency reporting system, reports are being signed by the in house radiologist without review as a courtesy to ensure prompt reporting. The interpreting r adiologist is fully responsible for the content of the report.
--- NOTE | 2024-03-24 11:04 | RAD REPORT ---
EXAM DESCRIPTION: RAD - Foot Left 3 View - 03/24/2024 3:14 am CLINICAL HISTORY: Pain! COMPARISON: None. TECHNIQUE: XR FOOT 3 OR MORE VIEWS LEFT 03/24/2024 2:37 AM CDT FINDINGS: There is an old fracture of the midshaft of the proximal fifth phalanx. There is mild to m oderate narrowing of the first MTP joint. Soft tissues are unremarkable. IMPRESSION: No acute osseous findings. Electronically signed by: Eduardo Nation MD 03/24/2024 04:44 AM CDT RP Due to temporary technical issues with the PACS/Fluency reporting system, reports are being signed by the in house radiologist without review as a courtesy to ensure prompt reporting. The interpreting r adiologist is fully responsible for the content of the report.
--- NOTE | 2024-03-24 11:06 | RAD REPORT ---
EXAM DESCRIPTION: RAD - Ankle Left 3 View - 03/24/2024 3:15 am XR Left Ankle 3 Views COMPARISON: Pain COMPARISON: None TECHNIQUE: Left Ankle 3 Views FINDINGS: No fracture or dislocation. No significant sclerotic/lytic bone lesion. Joint spaces unremarkable. Soft tissues unremarkable. IMPRESSION: Unremarkable Left Ankle Radiographs. Electronically signed by: Koko Rivers MD 03/24/2024 04:40 AM CDT RP Due to temporary technical issues with the PACS/Fluency reporting system, reports are being signed by the in house radiologist without review as a courtesy to ensure prompt reporting. The interpreting r adiologist is fully responsible for the content of the report.
--- NOTE | 2024-03-24 11:27 | RAD REPORT ---
EXAM DESCRIPTION: RAD - Foot Right 3 View - 03/24/2024 3:15 am CLINICAL HISTORY: PAIN COMPARISON: None. TECHNIQUE: XR FOOT 3 OR MORE VIEWS RIGHT 03/24/2024 2:37 AM CDT FINDINGS: There is evidence of an old distal tibial fracture. Joint spaces are preserved. There is mild soft tissue swelling throughout the foot. IMPRESSION: No definite acute fracture. Electronically signed by: Eduardo Nation MD 03/24/2024 04:43 AM CDT RP Due to temporary technical issues with the PACS/Fluency reporting system, reports are being signed by the in house radiologist without review as a courtesy to ensure prompt reporting. The interpreting r adiologist is fully responsible for the content of the report.
--- NOTE | 2024-03-24 11:28 | RAD REPORT ---
EXAM DESCRIPTION: RAD - Ankle Right 3 View - 03/24/2024 3:15 am CLINICAL HISTORY: PAIN COMPARISON: None. TECHNIQUE: XR ANKLE 3 OR MORE VIEWS RIGHT 03/24/2024 2:37 AM CDT FINDINGS: There is an old fracture of the distal tibia. Joint spaces are preserved. There is mild diffuse soft tissue swelling. IMPRESSION: No acute osseous findings. Electronically signed by: Eduardo Nation MD 03/24/2024 04:44 AM CDT RP Due to temporary technical issues with the PACS/Fluency reporting system, reports are being signed by the in house radiologist without review as a courtesy to ensure prompt reporting. The interpreting r adiologist is fully responsible for the content of the report.
== END 2024-03-24 05:18 | disposition home or self-care (01) ==
LOC: ER 01:58
DX: S92.515A Nondisplaced fracture of proximal phalanx of left lesser toe(s), initial encounter for closed fracture (principal); S63.92XA Sprain of unspecified part of left wrist and hand, initial encounter; S90.32XA Contusion of left foot, initial encounter; S90.31XA Contusion of right foot, initial encounter; S60.222A Contusion of left hand, initial encounter; S70.01XA Contusion of right hip, initial encounter; W18.30XA Fall on same level, unspecified, initial encounter
CPT/HCPCS: 72170; 73130; 73630 ×2; 73610 ×2; 96372; 99284; J7512